=== PATIENT | male | born 1945 | race Two or more races ===

== ENCOUNTER 2021-04-12 08:32 | Inpatient (IN) | payer OTHER ==
[~2021-04-12] VITALS: Ht 177.8 cm; Wt 104.4 kg
[2021-04-12] MEDS ORDERED: cefTRIAXone 1GM/50ML D5W 50 ML IV ONE (09:30)
[2021-04-12 09:34] LABS: Basophils # (auto) 0.1 10 ^3/uL (0-0.2); Basophils % (auto) 1.3 % (0.0-2.0); Eosinophils # (auto) 0.1 10 ^3/uL (0-0.8); Eosinophils % (auto) 1.5 % (0.0-7.0); Hematocrit 39.7 % (41.0-53.0); Hemoglobin 13.4 g/dL (13.5-17.5); Lymphocytes # (auto) 1.8 10 ^3/uL (0.4-5.4); Lymphocytes % (auto) 20.6 % (10.0-50.0); Mean Corpuscular Hemoglobin 33.3 pg (28.0-32.0); Mean Corpuscular Hgb Conc. 33.9 g/dL (32.0-36.0); Mean Corpuscular Volume 98.3 fL (80.0-100.0); Monocytes # (auto) 0.7 10 ^3/uL (0-1.3); Monocytes % (auto) 8.8 % (0.0-12.0); Neutrophils # (auto) 5.8 10 ^3/uL (1.6-8.6); Neutrophils % (auto) 67.8 % (37.0-80.0); Platelet Count (auto) 239 10^3/uL (140-450); Red Blood Cells 4.04 10^6/uL (4.5-5.90); Red Cell Distribution Width 13.7 % (11.8-14.3); White Blood Cell 8.5 10^3/uL (4.4-10.8)
[2021-04-12 09:45] LABS: Albumin 3.1 g/dL (3.4-5.0); Anion Gap 6 (5-15); Blood Urea Nitrogen 15 mg/dL (7-18); Calcium 9.2 mg/dL (8.5-10.1); Carbon Dioxide 24 mmol/L (21-32); Chloride 107 mmol/L (98-107); GFR African American 130 mL/min; GFR Non-African American 108 mL/min; Glucose 111 mg/dL (74-106); Potassium 3.9 mmol/L (3.5-5.1); Sodium 137 mmol/L (136-145)
[2021-04-12 09:50] LABS: INR 1.05 (0.9-1.15); Partial Thromboplastin Time 27.2 sec (23.0-31.2)
[2021-04-12 09:53] LABS: Alanine Aminotransferase 16 U/L (16-61); Alkaline Phosphatase 82 U/L (45-117); Aspartate Aminotransferase 15 U/L (15-37); Bilirubin, Total 0.7 mg/dL (0.2-1.0); Total Protein 6.7 g/dL (6.4-8.2)
[2021-04-12] MEDS ORDERED: CLINDAMYCIN 600MG IV 50 ML IV ONE (10:30)
[2021-04-12] MEDS ORDERED: ACETAMINOPHEN 325 MG TAB PO PRN (11:15)
[2021-04-12 11:59] LABS: Cholesterol 171 mg/dL (< 200); Triglycerides 72 mg/dL (< 150)
[2021-04-12 12:02] LABS: HDL Cholesterol 51 mg/dL (40-59); LDL Cholesterol 109 mg/dL (< 100)
[2021-04-12 15:01] LABS: Urine Bacteria NONE SEEN /hpf (None Seen); Urine Blood Negative /uL (Negative); Urine Specific Gravity 1.013 (1.001-1.035); Urine WBC <1 /hpf (0 - 3)
[2021-04-12] MEDS ORDERED: LORazepam 2MG/ML-1ML VIAL IV PRN (16:30)
[2021-04-12 18:00] VITALS: BP 120/69
[2021-04-12] MEDS: CLINDAMYCIN 600MG IV 50 ML IV SCH (18:18)
[2021-04-12] MEDS ORDERED: DOCU100T15 PO (18:59)
[2021-04-12] MEDS ORDERED: OXYC325T14 PO (18:59)
[2021-04-12] MEDS ORDERED: NAP500T PO (18:59)
[2021-04-12] MEDS ORDERED: MORP30TA PO (18:59)
[2021-04-12 20:00] VITALS: BP 124/62
[2021-04-12] MEDS: HYDROcodone-ACET 5/325MG TAB PO PRN (20:34)
[2021-04-12 22:00] VITALS: BP 124/62
[2021-04-13] MEDS: MORPHINE SULF INJ 2 MG/ML SYRINGE 1ML IV PRN ×2 (00:40→06:31)
[2021-04-13] MEDS: CLINDAMYCIN 600MG IV 50 ML IV SCH ×3 (02:19→17:26)
[2021-04-13] MEDS: HYDROcodone-ACET 5/325MG TAB PO PRN ×2 (02:57→13:41)
[2021-04-13 05:08] VITALS: BP 135/66
[2021-04-13 06:35] LABS: Eosinophils # (auto) 0.1 10 ^3/uL (0-0.8); Hemoglobin 13.4 g/dL (13.5-17.5); Monocytes # (auto) 0.8 10 ^3/uL (0-1.3); Neutrophils # (auto) 5.2 10 ^3/uL (1.6-8.6)
[2021-04-13 06:37] LABS: Basophils # (auto) 0 10 ^3/uL (0-0.2); Basophils % (auto) 0.5 % (0.0-2.0); Eosinophils % (auto) 1.5 % (0.0-7.0); Hematocrit 37.6 % (41.0-53.0); Lymphocytes # (auto) 1.7 10 ^3/uL (0.4-5.4); Lymphocytes % (auto) 21.4 % (10.0-50.0); Mean Corpuscular Hemoglobin 34.8 pg (28.0-32.0); Mean Corpuscular Hgb Conc. 35.8 g/dL (32.0-36.0); Mean Corpuscular Volume 97.3 fL (80.0-100.0); Monocytes % (auto) 10.1 % (0.0-12.0); Neutrophils % (auto) 66.5 % (37.0-80.0); Nucleated Red Blood Cells % 0.2 %; Platelet Count (auto) 231 10^3/uL (140-450); Red Blood Cells 3.86 10^6/uL (4.5-5.90); Red Cell Distribution Width 13.4 % (11.8-14.3); White Blood Cell 7.8 10^3/uL (4.4-10.8)
[2021-04-13 06:55] LABS: Potassium 3.8 mmol/L (3.5-5.1)
[2021-04-13 07:01] LABS: BUN/Creatinine Ratio 18.1; Calcium 9.2 mg/dL (8.5-10.1)
[2021-04-13] MEDS: ONDANSETRON HCL 4 MG/2 ML VIAL IV PRN ×2 (07:35→15:28)
[2021-04-13 09:00] VITALS: BP 171/89
[2021-04-13] MEDS: HYDROmorphone HCL 2 MG/ML VL IV PRN ×2 (09:03→15:28)
[2021-04-13] MEDS: cefTRIAXone 1GM/50ML D5W 50 ML IV SCH (09:33)
[2021-04-13] MEDS ORDERED: PANTOPRAZOLE 40 MG TAB PO SCH (10:00)
[2021-04-13] MEDS: FLORASTOR (S. BOULARDII) 250 MG CAP PO SCH (11:16)
[2021-04-13 12:50] VITALS: BP 143/78
[2021-04-13 17:00] VITALS: BP 128/66
[2021-04-13] MEDS ORDERED: hydrOXYzine 25 MG TAB or CAP PO PRN (19:00)
[2021-04-13] MEDS: QUEtiapine FUMARATE 25 MG TAB PO SCH (21:54)
[2021-04-13] MEDS: MORPHINE SULF 30 mg ER tab PO SCH (21:54)
[2021-04-13 22:00] VITALS: BP 131/66
[2021-04-14] MEDS: HYDROmorphone HCL 2 MG/ML VL IV PRN ×2 (00:11→09:42)
[2021-04-14] MEDS: CLINDAMYCIN 600MG IV 50 ML IV SCH ×3 (01:42→18:02)
[2021-04-14 03:02] LABS: Alcohol, Urine < 3.0 mg/dL (0-10); Amphetamine Screen, Urine NEGATIVE (NEGATIVE); Barbiturate Scree,Urine NEGATIVE (NEGATIVE); Benzodiazephine Screen, Urine NEGATIVE (NEGATIVE); Cannabinoid Screen, Urine NEGATIVE (NEGATIVE); Cocaine Screen, Urine NEGATIVE (NEGATIVE); Opiate Scree,Urine POSITIVE (NEGATIVE); Phencyclidine Screen, Urine NEGATIVE (NEGATIVE)
[2021-04-14] MEDS: HYDROcodone-ACET 5/325MG TAB PO PRN (03:12)
[2021-04-14 04:50] VITALS: BP 124/70
[2021-04-14] MEDS: MORPHINE SULF 30 mg ER tab PO SCH ×3 (06:14→22:14)
[2021-04-14] MEDS: QUEtiapine FUMARATE 25 MG TAB PO SCH ×4 (08:46→22:14)
[2021-04-14] MEDS: cefTRIAXone 1GM/50ML D5W 50 ML IV SCH (08:47)
[2021-04-14 09:00] VITALS: BP 134/65
[2021-04-14] MEDS: FLORASTOR (S. BOULARDII) 250 MG CAP PO SCH (09:41)
[2021-04-14] MEDS: ONDANSETRON HCL 4 MG/2 ML VIAL IV PRN (09:42)
[2021-04-14 12:30] VITALS: BP 122/73
[2021-04-14 13:00] VITALS: BP 89/46
[2021-04-14 16:41] VITALS: BP 95/68
[2021-04-14 22:00] VITALS: BP 113/63
[2021-04-15] VITALS (8 sets, daily range): BP systolic 86–124; BP diastolic 50–63
[2021-04-15] MEDS: CLINDAMYCIN 600MG IV 50 ML IV SCH ×2 (02:03→09:39)
[2021-04-15] MEDS: HYDROmorphone HCL 2 MG/ML VL IV PRN (02:04)
[2021-04-15] MEDS: MORPHINE SULF 30 mg ER tab PO SCH ×3 (06:00→22:00)
[2021-04-15] MEDS: QUEtiapine FUMARATE 25 MG TAB PO SCH ×3 (06:50→22:00)
[2021-04-15] MEDS: cefTRIAXone 1GM/50ML D5W 50 ML IV SCH (09:38)
[2021-04-15] MEDS: HYDROcodone-ACET 5/325MG TAB PO PRN (09:39)
[2021-04-15] MEDS: FLORASTOR (S. BOULARDII) 250 MG CAP PO SCH (09:39)
[2021-04-15] MEDS ORDERED: LACTULOSE 20Gm/30ML SOLN PO ONE ×2 (12:15→12:30)
[2021-04-15] MEDS ORDERED: QUET25TA46 PO ×2 (12:21)
[2021-04-15] MEDS ORDERED: QUET50TA PO (12:21)
[2021-04-15] MEDS ORDERED: DOXY-112 PO (12:21)
[2021-04-15] MEDS ORDERED: DIVA500T12 PO (12:21)
[2021-04-15] MEDS ORDERED: LACTULOSE 20Gm/30ML SOLN PO PRN (12:30)
[2021-04-15] MEDS: DOXYCYCLINE 100 MG TAB/CAP PO SCH (22:00)
[2021-04-16] MEDS: HYDROcodone-ACET 5/325MG TAB PO PRN (02:14)
[2021-04-16 05:00] VITALS: BP 111/101
[2021-04-16] MEDS: MORPHINE SULF 30 mg ER tab PO SCH (06:02)
[2021-04-16] MEDS: QUEtiapine FUMARATE 25 MG TAB PO SCH (06:51)
[2021-04-16 09:00] VITALS: BP 123/52
[2021-04-16] MEDS: cefTRIAXone 1GM/50ML D5W 50 ML IV SCH (09:16)
[2021-04-16] MEDS: FLORASTOR (S. BOULARDII) 250 MG CAP PO SCH (09:17)
[2021-04-16] MEDS: DOXYCYCLINE 100 MG TAB/CAP PO SCH (09:17)
[2021-04-16 11:02] VITALS: BP 123/52
== END 2021-04-16 12:50 | disposition home or self-care (01) | DRG 603 ==
LOC: ER 08:32 → EDBD 08:32 → TELE 11:09 → TELE-EAST 18:00
PROVIDERS: ADMIT Nurse Practitioner Acute Care; ATTEND Internal Medicine
DX: L03.116 Cellulitis of left lower limb (principal); B35.3 Tinea pedis; F31.9 Bipolar disorder, unspecified; G89.4 Chronic pain syndrome; E66.9 Obesity, unspecified; I10 Essential (primary) hypertension; I35.0 Nonrheumatic aortic (valve) stenosis; F17.210 Nicotine dependence, cigarettes, uncomplicated; I73.9 Peripheral vascular disease, unspecified; F11.10 Opioid abuse, uncomplicated; M54.5 Low back pain; Z20.822 Contact with and (suspected) exposure to COVID-19; Z68.32 Body mass index [BMI] 32.0-32.9, adult; Z91.5 Personal history of self-harm
CPT/HCPCS: 36415; 71045; 80048; 80053; 80061; 80307; 81001; 83605; 83880; 84484; 85025; 85610; 85730; 87040; 87426; 93005; 93306; 93925; 93970; 96365; 96366; 96367; G0378; J0696; J2405; J3490

== ENCOUNTER → 2022-11-29 | Emergency (ER) | payer OTHER ==
[~2022-11-29] VITALS: Ht 177.8 cm; Wt 92.3 kg
[~2022-11-29] MED LIST: CEFD300C2 PO; CYCL-837 PO; DICL50TA2 PO; DIVA500T12 PO; DOCU100T15 PO; DOXY-112 PO; MORP30TA PO; OXYC325T14 PO; QUET1TAB11 PO; QUET50TA PO
[2022-11-29 10:15] VITALS: BP 133/89
[2022-11-29 11:22] LABS: Urine Bacteria NONE SEEN /hpf (None Seen); Urine Blood Negative /uL (Negative); Urine Hyaline Cast FEW /lpf (0 - 2); Urine Mucus FEW (None Seen); Urine Specific Gravity 1.028 (1.001-1.035); Urine WBC 1 /hpf (0 - 3)
[2022-11-29 11:22] LABS: Basophils # (auto) 0.1 10 ^3/uL (0-0.2); Basophils % (auto) 0.7 % (0.0-2.0); Eosinophils # (auto) 0.2 10 ^3/uL (0-0.8); Eosinophils % (auto) 1.9 % (0.0-7.0); Hematocrit 46.8 % (41.0-53.0); Hemoglobin 15.1 g/dL (13.5-17.5); Lymphocytes # (auto) 2.3 10 ^3/uL (0.4-5.4); Lymphocytes % (auto) 28.3 % (10.0-50.0); Mean Corpuscular Hemoglobin 32.6 pg (28.0-32.0); Mean Corpuscular Hgb Conc. 32.2 g/dL (32.0-36.0); Mean Corpuscular Volume 101.3 fL (80.0-100.0); Monocytes # (auto) 0.7 10 ^3/uL (0-1.3); Neutrophils % (auto) 61.1 % (37.0-80.0); Nucleated Red Blood Cells % 0.1 %; Red Blood Cells 4.62 10^6/uL (4.5-5.90); Red Cell Distribution Width 14.6 % (11.8-14.3); White Blood Cell 8.2 10^3/uL (4.4-10.8)
[2022-11-29 11:44] LABS: Albumin 3.6 g/dL (3.4-5.0); BUN/Creatinine Ratio 18.8; Calcium 9.6 mg/dL (8.5-10.1); Potassium 4.8 mmol/L (3.5-5.1)
[2022-11-29 11:59] LABS: Bilirubin, Total 0.8 mg/dL (0.2-1.0); Total Protein 7.1 g/dL (6.4-8.2)
== END | disposition home or self-care (01) ==
LOC: ER 10:08
DX: M47.27 Other spondylosis with radiculopathy, lumbosacral region (principal); I87.2 Venous insufficiency (chronic) (peripheral); K62.89 Other specified diseases of anus and rectum; B35.1 Tinea unguium; Z98.890 Other specified postprocedural states
CPT/HCPCS: 36415; 71045; 80053; 81001; 82962; 84484; 85025; 93005

== ENCOUNTER 2023-07-08 10:30 | Emergency (ER) | payer OTHER ==
[~2023-07-08] VITALS: Ht 177.8 cm; Wt 90.9 kg
[~2023-07-08 10:30] MED LIST changes: -DOXY-112 PO; +DOXY-267 PO
[2023-07-08 12:15] LABS: Basophils # (auto) 0.1 10 ^3/uL (0-0.2); Basophils % (auto) 0.7 % (0.0-2.0); Eosinophils # (auto) 0.2 10 ^3/uL (0-0.8); Hematocrit 41.2 % (41.0-53.0); Hemoglobin 14.1 g/dL (13.5-17.5); Lymphocytes # (auto) 2.1 10 ^3/uL (0.4-5.4); Lymphocytes % (auto) 25.9 % (10.0-50.0); Mean Corpuscular Hemoglobin 33.9 pg (28.0-32.0); Mean Corpuscular Hgb Conc. 34.2 g/dL (32.0-36.0); Mean Corpuscular Volume 99.1 fL (80.0-100.0); Monocytes # (auto) 0.7 10 ^3/uL (0-1.3); Monocytes % (auto) 8.9 % (0.0-12.0); Neutrophils # (auto) 5.1 10 ^3/uL (1.6-8.6); Neutrophils % (auto) 62.5 % (37.0-80.0); Red Blood Cells 4.16 10^6/uL (4.5-5.90); Red Cell Distribution Width 14.5 % (11.8-14.3); White Blood Cell 8.1 10^3/uL (4.4-10.8)
[2023-07-08 12:33] LABS: Alanine Aminotransferase 14 U/L (7-40); Albumin 4.4 g/dL (3.2-4.8); Alkaline Phosphatase 79 U/L (46-116); Aspartate Aminotransferase 15 U/L (13-40); BUN/Creatinine Ratio 8.2 (10.0-20.0); Blood Urea Nitrogen 8 mg/dL (9-23); Calcium 9.7 mg/dL (8.5-10.1); Chloride 106 mmol/L (98-107); Glucose 99 mg/dL (74-106); Lipase 39 U/L (12-53); Potassium 4.5 mmol/L (3.5-5.1); Sodium 139 mmol/L (136-145)
[2023-07-08 12:34] LABS: Bilirubin, Total 0.7 mg/dL (0.2-1.0); Total Protein 7.2 g/dL (5.7-8.2)
[2023-07-08 12:35] LABS: INR 1.05 (0.9-1.15); Partial Thromboplastin Time 29.6 SEC (24.5-34.5)
[2023-07-08 16:10] VITALS: BP 143/61; TEMP 98.2
[2023-07-08 16:11] VITALS: PULSE 86; RESP 18; O2SAT 97
== END 2023-07-08 16:12 | disposition home or self-care (01) ==
LOC: EDBD 10:30 → ER 10:30
DX: R10.32 Left lower quadrant pain (principal); F17.210 Nicotine dependence, cigarettes, uncomplicated; Z79.2 Long term (current) use of antibiotics; Z79.899 Other long term (current) drug therapy
CPT/HCPCS: 36415; 74176; 80053; 83690; 85025; 85610; 85730

== ENCOUNTER 2024-11-18 07:13 | Inpatient (IN) | payer OTHER ==
[2024-11-18] VITALS (7 sets, daily range): BP systolic 82–110; BP diastolic 40–51; PULSE 71–84; RESP 13–17; TEMP 97.6–98.8; O2SAT 93–100
[~2024-11-18] VITALS: Ht 180.3 cm; Wt 85.2 kg
--- NOTE | 2024-11-18 07:23 | ECG ---
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
--- NOTE | 2024-11-18 07:42 | ED.PDOC ---
History of Present Illness HPI Comments 79 year old male brought in by EMS presents to the ED with a chief complaint of generalized weakness onset 2 weeks. Per EMS, patient woke up today, walked to the bathroom and when he went back to bed he was experiencing shortness of breath as well as dizziness. Upon EMS arrival patient's O2 sat was 88% on RA placed on 3L improved to 99%, BP 90s systolic. Patient has not taken his psych medication since yesterday. PMHx bipolar disorder and depression. Denies chest pain, headache, abdominal pain, nausea, vomiting, diarrhea, constipation,dysuria. No other symptoms or modifying factors present at this time. Chief Complaint: General Weakness Time Seen by MD: 07:23 Primary Care Provider: MADISYN Reviewed Notes: Medications, Allergies Allergies: Coded Allergies: Aspirin (Verified Allergy, Unknown, 11/18/24) Home Meds Active Scripts Cefdinir (Cefdinir) 300 Mg Cap, 1 CAP PO BID for 10 Days, #20 CAP Prov:CORINA GARCIA MD 11/29/22 Cyclobenzaprine Hcl (Cyclobenzaprine Hcl) 5 Mg Tab, 1 TAB PO TID for 10 Days, #30 TAB Prov:CORINA GARCIA MD 11/29/22 Diclofenac Potassium (Diclofenac Potassium) 50 Mg Tab, 1 TAB PO TIDP for 10 Days, #30 TAB Prov:CORINA GARCIA MD 11/29/22 Doxycycline Monohydrate (Doxycycline Monohydrate) 100 Mg Cap, 1 CAP PO BID, #14 CAP Prov:ALEC BAEZ MD 04/15/21 Divalproex Sodium (Divalproex Sodium Er) 500 Mg Tab, 2 TAB PO HS for 30 Days, #60 TAB Prov:ALEC BAEZ MD 04/15/21 Quetiapine Fumerate (Seroquel) 50 Mg Tab, 1 TAB PO HS, #30 TAB 0 Refills Prov:ALEC BAEZ MD 04/15/21 Quetiapine Fumerate (QUETIAPINE FUMARATE) 25 Mg Tab, 12.5 MG PO QAM for 30 Days, #15 TAB Prov:ALEC BAEZ MD 04/15/21 Quetiapine Fumerate (QUETIAPINE FUMARATE) 25 Mg Tab, 12.5 MG PO QPM for 30 Days, #15 TAB Prov:ALEC BAEZ MD 04/15/21 Reported Medications Docusate Sodium (Docusate Sodium) 100 Mg Tab, 100 MG PO BIDP PRN for FOR CONSTIPATION for 30 Days, MG 04/12/21 Oxycodone W/ Acetaminophen (Apap/Oxycodone) 1 Tab Tab, 1 TAB PO TIDP PRN for Pain, #90 TAB 04/12/21 Morphine Sulfate (Morphine Sulfate) 30 Mg Tab, 1 TAB PO TIDP for Pain, #90 TAB 04/12/21 Information Source: Patient, Emergency Med Personnel Mode of Arrival: EMS Severity: Moderate Timing: Weeks Duration: Since onset Prehospital treatment: Oxygen (3L) Past Medical History PAST MEDICAL HISTORY: Arthritis, Denies Surgical History: Unknown Family History Family History: Unknown Social History Smoker: Cigarettes Alcohol: Denies ETOH Use Drugs: Denies Drug Use Lives In: Home Constitutional: reports: weakness; denies: chills, diaphoresis, fatigue, fever, malaise, sweats, others EENTM: denies: blurred vision, double vision, ear bleeding, ear discharge, ear drainage, ear pain, ear ringing, eye pain, eye redness, hearing loss, mouth pain, mouth swelling, nasal discharge, nose bleeding, nose congestion, nose pain, photophobia, tearing, throat pain, throat swelling, voice changes, others Respiratory: reports: shortness of breath; denies: cough, hemoptysis, orthopnea, SOB at rest, SOB with excertion, stridor, wheezing, others Cardiovascular: denies: chest pain, dizzy spells, diaphoresis, Dyspnea on exertion, edema, irregular heart beat, left arm pain, lightheadedness, palpitations, PND, syncope, others Gastrointestinal: denies: abdomen distended, abdominal pain, blood streaked bowels, constipated, diarrhea, dysphagia, difficulty swallowing, hematemesis, melena, nausea, poor appetite, poor fluid intake, rectal bleeding, rectal pain, vomiting, others Genitourinary: denies: burning, dysuria, flank pain, frequency, hematuria, incontinence, penile discharge, penile sore, pain, testicle pain, testicle swelling, urgency, others Neurological: reports: dizziness; denies: fainting, headache, left sided numbness, left sided weakness, numbness, paresthesia, pre-existing deficit, right sided numbness, right sided weakness, seizure, speech problems, tingling, tremors, weakness, others Musculoskeletal: denies: back pain, gout, joint pain, joint swelling, muscle pain, muscle stiffness, neck pain, others Integumetry: denies: bruises, change in color, change in hair/nails, dryness, laceration, lesions, lumps, rash, wounds, others Allergic/Immunocompromised: denies: Difficulty Healing, Frequent Infections, Hives, Itching, others Hematologic/Lymphatic: denies: anemia, blood clots, easy bleeding, easy bruising, swollen glands, others Endocrine: denies: excessive hunger, excessive sweating, excessive thirst, excessive urination, flushing, intolerance to cold, intolerance to heat, unexplained weight gain, unexplained weight loss, others Psychiatric: denies: anxiety, bipolar disorder, depression, hopeless, panic disorder, schizophrenia, sleepless, suicidal, others All Other Systems: Reviewed and Negative Physical Exam General Appearance: Moderate Distress HEENT: Normal ENT Inspection, Pharynx Normal, TMs Normal Neck: Full Range of Motion, Non-Tender, Normal, Normal Inspection Respiratory: Chest Non-Tender, Lungs Clear, No Accessory Muscle Use, No Respiratory Distress, Normal Breath Sounds Cardiovascular: No Edema, No JVD, No Murmur, No Gallop, Normal Peripheral Pulses, Regular Rate/Rhythm Breast Exam: Deferred Gastrointestinal: No Organomegaly, Non Tender, No Pulsatile Mass, Normal Bowel Sounds, Soft Genitalia: Deferred Pelvic: Deferred Rectal: Deferred Extremities: No pedal edema Musculoskeletal : Apperance: Normal Neurologic: Alert Cerebellar Function: NOT DONE Reflexes: NOT DONE Skin: Pallor Peripheral Pulses: 3+ Radial (R), 3+ Radial (L) Lymphatic: No Adenopathy Was a procedure done? Was a procedure done?: No Differential Dx Considerations may include: Anemia Electrolyte imbalance X-Ray, Labs, Meds, VS Vital Signs Date Time Temp Pulse Resp B/P (MAP) Pulse Ox O2 Delivery O2 Flow Rate FiO2 11/18/24 07:17 98.0 87 16 106/68 (81) 99 11/18/24 07:17 89 Lab Test 11/18/24 07:50 Range/Units White Blood Count 5.3 4.4-10.8 10^3/uL Red Blood Count 2.68 L 4.5-5.90 10^6/uL Hemoglobin 5.3 *L 13.5-17.5 g/dL Hematocrit 18.2 L 41.0-53.0 % Mean Corpuscular Volume 67.8 L 80.0-100.0 fL Mean Corpuscular Hemoglobin 19.8 L 28.0-32.0 pg Mean Corpuscular Hemoglobin Concent 29.1 L 32.0-36.0 g/dL Red Cell Distribution Width 21.0 H 11.8-14.3 % Platelet Count 251 140-450 10^3/uL Mean Platelet Volume 8.6 6.9-10.8 fL Neutrophils (%) (Auto) 37.0-80.0 % Lymphocytes (%) (Auto) 10.0-50.0 % Monocytes (%) (Auto) 0.0-12.0 % Basophils (%) (Auto) 0.0-2.0 % Neutrophils # (Auto) 1.6-8.6 10 ^3/uL Lymphocytes # (Auto) 0.4-5.4 10 ^3/uL Monocytes # (Auto) 0-1.3 10 ^3/uL Differential Total Cells Counted 100.0 100 Neutrophils % (Manual) 73 37.0-80.0 Band Neutrophils % (Manual) 0 Lymphocytes % (Manual) 22 10.0-50.0 Monocytes % (Manual) 2 0-12 Eosinophils % (Manual) 3 0-7 Basophils % (Manual) 0 0.0-2.0 Metamyelocytes % (manual) 0 Myelocytes % (Manual) 0 Promyelocytes % (Manual) 0 Blast Cells % (Manual) 0 Reactive Lymphocytes 0 Platelet Estimate Adequate Hypochromasia (manual) Marked Anisocytosis (manual) Marked Microcytosis Marked Sodium Level 142 136-145 mmol/L Potassium Level 4.3 3.5-5.1 mmol/L Chloride Level 109 H 98-107 mmol/L Carbon Dioxide Level 24 20-31 mmol/L Anion Gap 9 5-15 Blood Urea Nitrogen 18 9-23 mg/dL Creatinine 1.03 0.700-1.30 mg/dL Glomerular Filtration Rate Calc 73 >90 mL/min BUN/Creatinine Ratio 17.5 10.0-20.0 Serum Glucose 124 H 74-106 mg/dL Calcium Level 9.7 8.7-10.4 mg/dL Troponin I High Sensitivity 28 </=54 ng/L Patient alert. Frequent falls. He is pale. Denies any bleeding. Hemoglobin is low. Blood transfusion. Cardiac marker within normal limits. WBC within normal limits. Reviewed his history. Explained to the patient. Continue cardiac monitoring. GI consultation. Colonoscopy. EKG reviewed does not show any acute changes. Chest x-ray reviewed does show pneumonia. Was given Rocephin. Was given azithromycin. Time of 1ST Reevaluation: 10:42 Reevaluation 1ST: Unchanged Patient Education/Counseling: Diagnosis, Treatment, Prognosis Family Education/Counseling: No Family Present Additional Information I reviewed the following notes from patient's past medical encounters: The following tests were ordered, and results were reviewed by me: EKG, TROP, CBC, XY CHEST, YA, BMP, MANUAL DIFF, TYPE AND SCREEN Additional Information was gathered from interviewing the following independent historians: EMS I reviewed and agreed with the following test results read by other providers: XY CHEST I discussed treatment and results with medical personnel and: patient Departure 1 Departure Time of Disposition: 10:43 Impression: Primary Impression: Severe anemia Disposition: ADMITTED INPATIENT Admit to: Med Surg Condition: Guarded Critical Care Note Critical Care Time?: Yes (90 min-critical care time only) Stability Stability form required: No Heart Score Heart Score: Heart Score Response (Comments) Value History Slightly Suspicious 0 EKG Normal 0 Age >65 2 Risk Factors >3 or Hx ASHD 2 Troponin Normal limit 0 Total 4 I personally scribed for AVANI GRAY MD ([email or web address]) on 11/18/24 at 07:42. Electronically submitted by Ansley Tyson ([email or web address]). I personally scribed for AVANI GRAY MD ([email or web address]) on 11/18/24 at 09:07. Electronically submitted by Ansley Tyson ([email or web address]). AVANI GRAY MD Nov 18, 2024 07:42
[2024-11-18 08:11] LABS: Hematocrit 18.2 % (41.0-53.0); Mean Corpuscular Hemoglobin 19.8 pg (28.0-32.0); Mean Corpuscular Hgb Conc. 29.1 g/dL (32.0-36.0); Mean Corpuscular Volume 67.8 fL (80.0-100.0); Platelet Count (auto) 251 10^3/uL (140-450); Red Blood Cells 2.68 10^6/uL (4.5-5.90); White Blood Cell 5.3 10^3/uL (4.4-10.8)
[2024-11-18 08:18] LABS: Potassium 4.3 mmol/L (3.5-5.1); Sodium 142 mmol/L (136-145)
[2024-11-18 08:19] LABS: Anion Gap 9 (5-15); Calcium 9.7 mg/dL (8.7-10.4); Carbon Dioxide 24 mmol/L (20-31)
[2024-11-18 08:24] LABS: BUN/Creatinine Ratio 17.5 (10.0-20.0); Blood Urea Nitrogen 18 mg/dL (9-23)
[2024-11-18 08:27] LABS: Hemoglobin 5.3 g/dL (13.5-17.5)
[2024-11-18 08:29] LABS: Band Neutrophils % (manual) 0; Basophils % (manual) 0 (0.0-2.0); Blast Cells 0; Chloride 109 mmol/L (98-107); Glucose 124 mg/dL (74-106); Metamyelocytes % 0; Myelocytes % 0; Promyelocytes % 0; Reactive Lymphocytes 0
--- NOTE | 2024-11-18 09:29 | DVH ---
CHEST RADIOGRAPH Indication: sob Technique: Single frontal view of the chest was obtained Comparison: CHEST PORTABLE on DOS: 11/29/22 FINDINGS: Lines and Tubes: None Lungs: Bilateral interstitial prominence and bibasilar opacities. Pleura: No effusion. No pneumothorax. Cardiomediastinal contours: Unremarkable Bones: No acute osseous abnormality. IMPRESSION: Interstitial pulmonary edema. Bibasilar opacities which may reflect atelectasis or superimposed pneu monia.
[2024-11-18 10:39] LABS: Anisocytosis Marked; Eosinophils % (manual) 3 (0-7); Hypochromia Marked; Lymphocytes % (manual) 22 (10.0-50.0); Monocytes % (manual) 2 (0-12); Platelet Estimate Adequate
[2024-11-18] MEDS: cefTRIAXone 1GM/50ML D5W 50 ML IV ONE (12:12)
[2024-11-18] MEDS: AZITHROMYCIN 500MG/ 250ML 250 ML IV ONE (12:13)
--- NOTE | 2024-11-18 12:32 | DVHHP2 ---
History of Present Illness Reason for Visit: Weakness History of Present Illness Maynor Renae is an 79-year-old male with past medical history of bipolar disorder, depression, arthritis, spinal fusion, and colonoscopy he has presents to the ED today for weakness, shortness of breath, and dizziness times 5-6 weeks. Patient reports that he has been progressively getting weaker and weaker over the last 5-6 weeks. Patient states that he is compliant with his medications. Patient also denies bleeding, chest pain, abdominal pain, nausea, vomiting and headaches. Patient did also denies any recent trauma or injury or falls. Psych: Bipolar, Depression Past Medical History Arthritis Past Surgical History: Other (Spinal fusion And Colonoscopy) Family History: Cancer, Other (For then to start cancer, mom Alzheimer's, and dad heart disease) Smoke: <1 pack per day ALCOHOL: none Lives: Alone Domestic Violence: Neg Review of Systems Constitutional: Yes: Weakness, Other (Dizziness); No: Fever, Chills, Sweats, Malaise Eyes: No: Pain, Vision change, Conjunctivae inflammation, Eyelid inflammation, Other, Redness ENT: No: Ear pain, Ear discharge, Nose pain, Nose discharge, Nose congestion, Mouth pain, Mouth swelling, Throat pain, Throat swelling, Other Respiratory: Shortness of breath; No: Cough, Dry, SOB with excertion, Wheezing, Hemoptysis, Pleuritic Pain, Sputum, Wheezing, Other Cardiovascular: No: Chest Pain, Palpitations, Orthopnea, Paroxysmal Noc. Dyspnea, Edema, Lt Headedness, Other Gastrointestinal: No: Nausea, Vomiting, Abdominal Pain, Diarrhea, Constipation, Melena, Hematochezia, Other Genitourinary: No Dysuria, No Frequency, No Incontinence, No Hematuria, No Retention, No Other Musculoskeletal: No: other, neck pain, shoulder pain, arm pain, back pain, hand pain, leg pain, foot pain Skin: No: Rash, Lesions, Jaundice, Bruising, Other Neurological: No: Weakness, Numbness, Incoordination, Change in speech, Confusion, Seizures, Other Allergies: Coded Allergies: Aspirin (Verified Allergy, Unknown, 11/18/24) Exam Vital Signs Vital Signs Date Time Temp Pulse Resp B/P (MAP) Pulse Ox O2 Delivery O2 Flow Rate FiO2 11/18/24 07:17 98.0 87 16 106/68 (81) 99 General Appearance: Alert, Oriented X3, Cooperative, No acute distress HEENT: Atraumatic, PERRLA, EOMI, Mucous membr. moist/pink Respiratory: Clear to auscultation, Normal air movement Cardiovascular: Regular rate, Normal S1, Normal S2, No murmurs Abdominal: Normal bowel sounds, Soft, No tenderness, No hepatospenomegaly, No masses Extremities: No clubbing, No cyanosis, No edema, Normal pulses, No tenderness/swelling Skin: No rashes, No breakdown, No significant lesion Neuro: Normal gait, Normal speech, Strength at 5/5 X4 ext, Normal tone, Sensation intact Psych/Mental Status: Mental status NL, Mood NL Labs/Xrays Labs Test 11/18/24 07:50 Range/Units White Blood Count 5.3 4.4-10.8 10^3/uL Red Blood Count 2.68 L 4.5-5.90 10^6/uL Hemoglobin 5.3 *L 13.5-17.5 g/dL Hematocrit 18.2 L 41.0-53.0 % Mean Corpuscular Volume 67.8 L 80.0-100.0 fL Mean Corpuscular Hemoglobin 19.8 L 28.0-32.0 pg Mean Corpuscular Hemoglobin Concent 29.1 L 32.0-36.0 g/dL Red Cell Distribution Width 21.0 H 11.8-14.3 % Platelet Count 251 140-450 10^3/uL Mean Platelet Volume 8.6 6.9-10.8 fL Neutrophils (%) (Auto) 37.0-80.0 % Lymphocytes (%) (Auto) 10.0-50.0 % Monocytes (%) (Auto) 0.0-12.0 % Basophils (%) (Auto) 0.0-2.0 % Neutrophils # (Auto) 1.6-8.6 10 ^3/uL Lymphocytes # (Auto) 0.4-5.4 10 ^3/uL Monocytes # (Auto) 0-1.3 10 ^3/uL Differential Total Cells Counted 100.0 100 Neutrophils % (Manual) 73 37.0-80.0 Band Neutrophils % (Manual) 0 Lymphocytes % (Manual) 22 10.0-50.0 Monocytes % (Manual) 2 0-12 Eosinophils % (Manual) 3 0-7 Basophils % (Manual) 0 0.0-2.0 Metamyelocytes % (manual) 0 Myelocytes % (Manual) 0 Promyelocytes % (Manual) 0 Blast Cells % (Manual) 0 Reactive Lymphocytes 0 Platelet Estimate Adequate Hypochromasia (manual) Marked Anisocytosis (manual) Marked Microcytosis Marked Sodium Level 142 136-145 mmol/L Potassium Level 4.3 3.5-5.1 mmol/L Chloride Level 109 H 98-107 mmol/L Carbon Dioxide Level 24 20-31 mmol/L Anion Gap 9 5-15 Blood Urea Nitrogen 18 9-23 mg/dL Creatinine 1.03 0.700-1.30 mg/dL Glomerular Filtration Rate Calc 73 >90 mL/min BUN/Creatinine Ratio 17.5 10.0-20.0 Serum Glucose 124 H 74-106 mg/dL Calcium Level 9.7 8.7-10.4 mg/dL Troponin I High Sensitivity 28 </=54 ng/L CHEST RADIOGRAPH Indication: sob Technique: Single frontal view of the chest was obtained Comparison: CHEST PORTABLE on DOS: 11/29/22 FINDINGS: Lines and Tubes: None Lungs: Bilateral interstitial prominence and bibasilar opacities. Pleura: No effusion. No pneumothorax. Cardiomediastinal contours: Unremarkable Bones: No acute osseous abnormality. IMPRESSION: Interstitial pulmonary edema. Bibasilar opacities which may reflect atelectasis or superimposed pneumonia. Assessment/Plan Assessment/Plan Assessment/Plan: Severe Anemia suspecting iron-deficiency anemia PNA IV antibiotics ceftriaxone and azithromycin Type and screen UA Chest x-ray noted Troponin negative EKG Transfuse PRBCs for hemoglobin less than 7.0 Labs A.m. labs Iron panel Direct Tawanna Haptoglobin Iron supplementation Stool occult blood Chronic bipolar disorder Chronic depression Chronic arthritis Follow up with PCP outpatient Continue home medications Tobacco use Counseled patient on tobacco cessation FEN/PPX Diet NPO DVT ppx not indicated patient ambulating PUD ppx not indicated no history of GERD or GI bleed Discussed plan of care with patient and nurse Admit to [facility] Home medications reconciled Plan discussed with: Patient My Orders Orders - KASSANDRA LAMAS [employer]OR Procedure Category Date Status Time Ceftriaxone Ivpb PHA 11/19/24 Transmitted Rocephin 09:00 Azithromycin 500mg/ PHA 11/19/24 Transmitted 250ml (Zithromax 50 10:00 Admit ADMIT 11/18/24 Transmitted 12:14 Allergies ALVARO 11/18/24 Transmitted 12:14 Code Status CODE 11/18/24 Transmitted 12:14 Ondansetron Hcl PHA 11/18/24 Transmitted (Zofran) 12:15 Complete Blood Count LAB 11/19/24 Verified 04:00 Comprehensive LAB 11/19/24 Verified Metabolic Panel 04:00 Cardiac DIET 11/18/24 Transmitted Diet-2gna,Lofat,Lochol Lunch Acetaminophen Tablet PHA 11/18/24 Transmitted (Tylenol Tablet) 12:15 Date of Service: Nov 18, 2024 Billing Provider: KASSANDRA LAMAS Common Visit Codes: [id number] INP/OBS CARE (HIGH) KASSANDRA LAMAS Nov 18, 2024 12:32
[2024-11-18 13:35] LABS: % Iron Saturation 3.1 % (20-55)
[2024-11-18] MEDS: QUEtiapine FUMARATE 25 MG TAB PO SCH (17:25)
[2024-11-18] MEDS: FERROUS SULFATE 325mg EC TAB PO SCH (17:26)
[2024-11-18 21:33] LABS: Urine Bacteria None Seen /hpf (None Seen)
[2024-11-18] MEDS: DIVALPROEX SODIUM 500 MG PO SCH (22:00)
[2024-11-18 22:13] LABS: Urine Blood Negative /uL (Negative); Urine Clarity Clear (Clear); Urine Color Yellow (Yellow); Urine Protein, UAD Negative (Negative); Urine Squamous Epithelial Cell FEW /hpf (<5); Urine Urobilinogen Normal (Negative); Urine WBC 1 /hpf (0 - 3); Urine pH 5.5 (5.0-9.0)
[2024-11-19] VITALS (14 sets, daily range): BP systolic 96–126; BP diastolic 45–71; PULSE 18–97; RESP 8–18; TEMP 97.5–98.8; O2SAT 92–99
[2024-11-19 07:19] LABS: Basophils # (auto) 0.1 10 ^3/uL (0-0.2); Eosinophils # (auto) 0.2 10 ^3/uL (0-0.8); Monocytes # (auto) 0.6 10 ^3/uL (0-1.3); White Blood Cell 6.4 10^3/uL (4.4-10.8)
[2024-11-19 07:22] LABS: Eosinophils % (auto) 3.1 % (0.0-7.0); Hematocrit 21.8 % (41.0-53.0); Lymphocytes # (auto) 1.8 10 ^3/uL (0.4-5.4); Lymphocytes % (auto) 28.7 % (10.0-50.0); Mean Corpuscular Hemoglobin 22.7 pg (28.0-32.0); Mean Corpuscular Hgb Conc. 31.2 g/dL (32.0-36.0); Monocytes % (auto) 10.1 % (0.0-12.0); Neutrophils # (auto) 3.7 10 ^3/uL (1.6-8.6); Neutrophils % (auto) 57.1 % (37.0-80.0); Nucleated Red Blood Cells % 0.3 %; Platelet Count (auto) 203 10^3/uL (140-450); Red Blood Cells 2.99 10^6/uL (4.5-5.90)
[2024-11-19 07:38] LABS: Albumin 3.4 g/dL (3.2-4.8); Anion Gap 6 (5-15); BUN/Creatinine Ratio 16.3 (10.0-20.0); Blood Urea Nitrogen 17 mg/dL (9-23); Calcium 9.4 mg/dL (8.7-10.4); Carbon Dioxide 26 mmol/L (20-31); Glucose 91 mg/dL (74-106); Potassium 4.3 mmol/L (3.5-5.1); Sodium 142 mmol/L (136-145)
[2024-11-19 07:40] LABS: Alanine Aminotransferase < 9 U/L (7-40); Alkaline Phosphatase 44 U/L (46-116); Aspartate Aminotransferase 9 U/L (13-40); Bilirubin, Total 2.3 mg/dL (0.2-1.0); Chloride 110 mmol/L (98-107); Total Protein 5.4 g/dL (5.7-8.2)
[2024-11-19 07:46] LABS: Red Cell Distribution Width 24.2 % (11.8-14.3)
[2024-11-19 07:48] LABS: Hemoglobin 6.8 g/dL (13.5-17.5)
[2024-11-19] MEDS: cefTRIAXone 1GM/50ML D5W 50 ML IV SCH (09:31)
--- NOTE | 2024-11-19 13:39 | DVHPN2 ---
Reviewed: Care Plan, H&P, Labs, Medications, Previous Orders, Radiology Changes from previous H/P or p: No Changes Eyes: No Pain, No Vision change, No Conjunctivae inflammation, No Eyelid inflammation, No Other, No Redness ENT: No Ear pain, No Ear discharge, No Nose pain, No Nose discharge, No Nose congestion, No Mouth pain, No Mouth swelling, No Throat pain, No Throat swelling, No Other Cardiovascular: No Chest Pain, No Palpitations, No Orthopnea, No Paroxysmal Noc. Dyspnea, No Edema, No Lt Headedness, No Other Respiratory: No Cough, No Dry; Shortness of breath; No SOB with excertion, No Wheezing, No Hemoptysis, No Pleuritic Pain, No Sputum, No Other Gastrointestinal: No Nausea, No Vomiting, No Abdominal Pain, No Diarrhea, No Constipation, No Melena, No Hematochezia, No Other Genitourinary: No Dysuria, No Frequency, No Incontinence, No Hematuria, No Retention, No Other Musculoskeletal: No other, No neck pain, No shoulder pain, No arm pain, No back pain, No hand pain, No leg pain, No foot pain Skin: No Rash, No Lesions, No Jaundice, No Bruising, No Other Objective Vitals Vital Signs Date Time Temp Pulse Resp B/P (MAP) Pulse Ox O2 Delivery O2 Flow Rate FiO2 11/19/24 11:49 98.8 80 16 102/54 (70) 92 98.8 11/19/24 08:05 Nasal Cannula* 3 32 Intake/Output Intake and Output 11/19/24 07:00 Intake Total 1450 ml Output Total 0 ml Balance 1450 ml Intake Oral 250 ml IV Total 300 ml Blood Product 900 ml Output Urine Total 0 ml Medications Current Medications Medications Dose Ordered Sig/Ren Route Start Time Stop Time Status Last Admin Dose Admin Ceftriaxone Sodium 50 ml @ 100 mls/hr DAILY@09 IV 11/19/24 09:00 11/19/24 09:31 100 MLS/HR Azithromycin 250 ml @ 125 mls/hr DAILY IV 11/19/24 10:00 Ondansetron HCl 4 mg Q4HP PRN IV 11/18/24 12:15 Acetaminophen 650 mg Q6HP PRN PO 11/18/24 12:15 Quetiapine Fumarate 12.5 mg QPM PO 11/18/24 18:00 11/18/24 17:25 12.5 MG Patient Own Medication 2 tab HS PO 11/18/24 22:00 Ferrous Sulfate 325 mg BIDWM PO 11/18/24 18:00 11/19/24 09:31 325 MG Laboratory Results Laboratory Tests 11/19/24 06:29 Chemistry Test 11/19/24 06:29 Albumin 3.4 g/dL (3.2-4.8) Calcium Level 9.4 mg/dL (8.7-10.4) Total Protein 5.4 g/dL (5.7-8.2) L LFT Test 11/19/24 06:29 Alanine Aminotransferase (ALT) < 9 U/L (7-40) Alkaline Phosphatase 44 U/L (46-116) L Aspartate Amino Transferase (AST) 9 U/L (13-40) L Total Bilirubin 2.3 mg/dL (0.2-1.0) H Urinalysis Test 11/18/24 21:17 Urine Color Yellow (Yellow) Urine Clarity Clear (Clear) Urine pH 5.5 (5.0-9.0) Urine Specific [place] 1.020 (1.001-1.035) Urine Protein Negative (Negative) Urine Ketones Trace (Negative) Urine Blood Negative /uL (Negative) Urine Nitrite Negative (Negative) Urine Bilirubin Negative (Negative) Urine Urobilinogen Normal mg/dL (Negative) Urine Leukocyte Esterase Negative /uL (Negative) Urine RBC 1 /hpf (0 - 3) Urine WBC 1 /hpf (0 - 3) Urine Squamous Epithelial Cells Few /hpf (<5) Urine Bacteria None seen /hpf (None Seen) Urine Glucose Normal mg/dL (Normal) Labs and/or images reviewed: Labs reviewed by me, Image(s) reviewed by me Assessment/Plan Assessment/Plan Acute symptomatic anemia with hemoglobin 5.3, improved to 6.8 after 2 units RBC transfusion, GI consult for Dr. Molina to rule out any GI causes for anemia Depression Bipolar History of spinal fusion Time spent 55 minutes Patient is full code Advanced care planning time 20 minutes Plan discussed with: Patient My Orders Orders - MICHELLE ANDERSON MD Procedure Category Date Status Time * Gi [employer] Manager CONS 11/19/24 Transmitted 13:33 Date of Service: Nov 19, 2024 Billing Provider: MICHELLE ANDERSON MD Common Visit Codes: [id number] INP/OBS CARE(HIGH) Secondary Visit Codes: [id number] CARE PLAN 30 MINUTES MICHELLE ANDERSON MD Nov 19, 2024 13:39
--- NOTE | 2024-11-19 14:20 | DVHINCON2 ---
GI Consult Consult Note GI consult note Date of Consultation: 11/19/2024 Chief Complaint: Severe anemia Referring Physician: Dr. Ambar Anderson H&P: 79-year-old male presented to ER with weakness and shortness of breath and dizziness for two months No abdominal pain. No nausea or vomiting Patient has noticed constipation for one month, Last BM four days ago No melena or red blood in stool per patient Patient admits to being noncompliant with home medications Per patient SP EGD/colonoscopy 3-4 months ago Past Medical History: Bipolar, depression, arthritis Past Surgical History: Spinal fusion Social History: One pack per day smoking, no drinking ETOH and use of illegal drugs. Family History: Noncontributory Review of Systems: Constitutional: no fever, chill, weight loss HEENT: no eye pain, no hearing loss, no oral lesion, no scleral icterus Heart: no chest pain, no chest pressure Lung: no cough, no dyspnea with exertion Abdomen: see HPI Physical exam: General: NAD, AAOX3 Chest: lung brooks clear to auscultation Heart: RRR, no murmur Abdomen: non-distended, no tenderness to palpation, +BS Labs: Labs Test 11/19/24 06:29 11/18/24 21:17 11/18/24 09:40 11/18/24 07:50 Range/Units White Blood Count 6.4 4.4-10.8 10^3/uL Red Blood Count 2.99 L 4.5-5.90 10^6/uL Hemoglobin 6.8 #*L 13.5-17.5 g/dL Hematocrit 21.8 #L 41.0-53.0 % Mean Corpuscular Volume 73.0 #L 80.0-100.0 fL Mean Corpuscular Hemoglobin 22.7 L 28.0-32.0 pg Mean Corpuscular Hemoglobin Concent 31.2 L 32.0-36.0 g/dL Red Cell Distribution Width 24.2 H 11.8-14.3 % Platelet Count 203 140-450 10^3/uL Mean Platelet Volume 8.8 6.9-10.8 fL Neutrophils (%) (Auto) 57.1 37.0-80.0 % Lymphocytes (%) (Auto) 28.7 10.0-50.0 % Monocytes (%) (Auto) 10.1 0.0-12.0 % Eosinophils (%) (Auto) 3.1 0.0-7.0 % Basophils (%) (Auto) 1.0 0.0-2.0 % Neutrophils # (Auto) 3.7 1.6-8.6 10 ^3/uL Lymphocytes # (Auto) 1.8 0.4-5.4 10 ^3/uL Monocytes # (Auto) 0.6 0-1.3 10 ^3/uL Eosinophils # (Auto) 0.2 0-0.8 10 ^3/uL Basophils # (Auto) 0.1 0-0.2 10 ^3/uL Nucleated Red Blood Cells 0.3 % Sodium Level 142 136-145 mmol/L Potassium Level 4.3 3.5-5.1 mmol/L Chloride Level 110 H 98-107 mmol/L Carbon Dioxide Level 26 20-31 mmol/L Anion Gap 6 5-15 Blood Urea Nitrogen 17 9-23 mg/dL Creatinine 1.04 0.700-1.30 mg/dL Glomerular Filtration Rate Calc 73 >90 mL/min BUN/Creatinine Ratio 16.3 10.0-20.0 Serum Glucose 91 74-106 mg/dL Calcium Level 9.4 8.7-10.4 mg/dL Total Bilirubin 2.3 H 0.2-1.0 mg/dL Aspartate Amino Transferase (AST) 9 L 13-40 U/L Alanine Aminotransferase (ALT) < 9 7-40 U/L Alkaline Phosphatase 44 L 46-116 U/L Total Protein 5.4 L 5.7-8.2 g/dL Albumin 3.4 3.2-4.8 g/dL Urine Color Yellow Yellow Urine Clarity Clear Clear Urine pH 5.5 5.0-9.0 Urine Specific [place] 1.020 1.001-1.035 Urine Protein Negative Negative Urine Ketones Trace Negative Urine Blood Negative Negative /uL Urine Nitrite Negative Negative Urine Bilirubin Negative Negative Urine Urobilinogen Normal Negative mg/dL Urine Leukocyte Esterase Negative Negative /uL Urine RBC 1 0 - 3 /hpf Urine WBC 1 0 - 3 /hpf Urine Squamous Epithelial Cells Few <5 /hpf Urine Bacteria None seen None Seen /hpf Urine Glucose Normal Normal mg/dL Reticulocyte Count (auto) 2.33 H 0.5-1.5 % Haptoglobin 96 34-355 mg/dL Iron Level 12 L 65-175 ug/dL Total Iron Binding Capacity 390 250-425 ug/dL Percent Iron Saturation 3.1 L 20-55 % Differential Total Cells Counted 100.0 100 Neutrophils % (Manual) 73 37.0-80.0 Band Neutrophils % (Manual) 0 Lymphocytes % (Manual) 22 10.0-50.0 Monocytes % (Manual) 2 0-12 Eosinophils % (Manual) 3 0-7 Basophils % (Manual) 0 0.0-2.0 Metamyelocytes % (manual) 0 Myelocytes % (Manual) 0 Promyelocytes % (Manual) 0 Blast Cells % (Manual) 0 Reactive Lymphocytes 0 Platelet Estimate Adequate Hypochromasia (manual) Marked Anisocytosis (manual) Marked Microcytosis Marked Troponin I High Sensitivity 28 </=54 ng/L Imaging: Assessment: Acute symptomatic anemia Constipation Plan: Discussed with Dr. Molina Monitor labs, patient being transfused 3rd unit of PRBCs SOB pending Protonix Colace and MiraLax Unable to acquire results of EGD and colonoscopy We will continue to monitor the patient Discussed plan with patient and RN Thank you for this consult Date of Service: Nov 19, 2024 Billing Provider: NIKKI ANDERSON Common Visit Codes: CONSULT ONLY Consultation Codes: [id number] CONSULT <45MIN NIKKI ANDERSON Nov 19, 2024 14:20
[2024-11-19 14:56] LABS: % Iron Saturation 93.8 % (20-55)
[2024-11-19] MEDS: AZITHROMYCIN 500MG/ 250ML 250 ML IV SCH (16:28)
[2024-11-20] VITALS (19 sets, daily range): BP systolic 99–135; BP diastolic 46–70; PULSE 60–111; RESP 14–26; TEMP 97.6–101.8; O2SAT 90–98
[2024-11-20] MEDS: FUROSEMIDE 20 MG/2 ML VIAL IV ONE (01:32)
[2024-11-20] MEDS: FUROSEMIDE 20 MG/2 ML VIAL ONE (01:55)
[2024-11-20] MEDS: LEVALBUTEROL HCL 1.25 MG/3 ML NEB NEB ONE (02:37)
--- NOTE | 2024-11-20 04:35 | DVH ---
CHEST RADIOGRAPH Indication: sob Technique: Single frontal view of the chest was obtained Comparison: XY CHEST PORTABLE on DOS: 11/18/24 FINDINGS: Lines and Tubes: None Lungs: Stable pulmonary edema and bibasilar opacities. Pleura: No effusion. No pneumothorax. Cardiomediastinal contours: Stable size of the cardiovascular silhouette. Bones: No acute osseous abnormality. IMPRESSION: 1. No significant interval change.
[2024-11-20] MEDS: PANTOPRAZOLE 40 MG TAB PO SCH (05:59)
[2024-11-20 07:04] LABS: Hemoglobin 9.3 g/dL (13.5-17.5)
[2024-11-20 07:07] LABS: Hematocrit 30.3 % (41.0-53.0); Mean Corpuscular Hemoglobin 23.7 pg (28.0-32.0); Mean Corpuscular Hgb Conc. 30.8 g/dL (32.0-36.0); Mean Corpuscular Volume 76.8 fL (80.0-100.0); Platelet Count (auto) 237 10^3/uL (140-450); Red Blood Cells 3.94 10^6/uL (4.5-5.90); White Blood Cell 11.7 10^3/uL (4.4-10.8)
[2024-11-20 07:11] LABS: Red Cell Distribution Width 24.4 % (11.8-14.3)
[2024-11-20 07:13] LABS: Basophils % (manual) 0 (0.0-2.0); Blast Cells 0; Eosinophils % (manual) 0 (0-7); Metamyelocytes % 0; Myelocytes % 0; Promyelocytes % 0; Reactive Lymphocytes 0
[2024-11-20 07:34] LABS: Alanine Aminotransferase < 9 U/L (7-40); Albumin 3.8 g/dL (3.2-4.8); Alkaline Phosphatase 52 U/L (46-116); Anion Gap 9 (5-15); Aspartate Aminotransferase 15 U/L (13-40); Blood Urea Nitrogen 15 mg/dL (9-23); Calcium 9.7 mg/dL (8.7-10.4); Carbon Dioxide 25 mmol/L (20-31); Chloride 105 mmol/L (98-107); Glucose 102 mg/dL (74-106); Potassium 3.9 mmol/L (3.5-5.1); Sodium 139 mmol/L (136-145)
[2024-11-20 07:35] LABS: Total Protein 6.1 g/dL (5.7-8.2)
[2024-11-20 07:36] LABS: Bilirubin, Total 2.6 mg/dL (0.2-1.0)
[2024-11-20] MEDS: ACETAMINOPHEN 325 MG TAB PO PRN (08:00)
[2024-11-20 09:39] LABS: Band Neutrophils % (manual) 3; Monocytes % (manual) 8 (0-12)
[2024-11-20 09:40] LABS: Lymphocytes % (manual) 9 (10.0-50.0)
[2024-11-20 09:41] LABS: Anisocytosis Moderate; Hypochromia Slight; Platelet Estimate Adequate
--- NOTE | 2024-11-20 11:38 | DVHPN2 ---
Reviewed: Care Plan, H&P, Labs, Medications, Previous Orders, Radiology Changes from previous H/P or p: No Changes Eyes: No Pain, No Vision change, No Conjunctivae inflammation, No Eyelid inflammation, No Other, No Redness ENT: No Ear pain, No Ear discharge, No Nose pain, No Nose discharge, No Nose congestion, No Mouth pain, No Mouth swelling, No Throat pain, No Throat swelling, No Other Cardiovascular: No Chest Pain, No Palpitations, No Orthopnea, No Paroxysmal Noc. Dyspnea, No Edema, No Lt Headedness, No Other Respiratory: No Cough, No Dry; Shortness of breath; No SOB with excertion, No Wheezing, No Hemoptysis, No Pleuritic Pain, No Sputum, No Other Gastrointestinal: No Nausea, No Vomiting, No Abdominal Pain, No Diarrhea, No Constipation, No Melena, No Hematochezia, No Other Genitourinary: No Dysuria, No Frequency, No Incontinence, No Hematuria, No Retention, No Other Musculoskeletal: No other, No neck pain, No shoulder pain, No arm pain, No back pain, No hand pain, No leg pain, No foot pain Skin: No Rash, No Lesions, No Jaundice, No Bruising, No Other Objective Vitals Vital Signs Date Time Temp Pulse Resp B/P (MAP) Pulse Ox O2 Delivery O2 Flow Rate FiO2 11/20/24 10:00 93 Nasal Cannula* 2 28 11/20/24 09:00 101.8 99 18 99/70 (80) 101.8 Intake/Output Intake and Output 11/20/24 07:00 Intake Total 3100 ml Output Total 600 ml Balance 2500 ml Intake Oral 2200 ml IV Total 300 ml Blood Product 600 ml Output Urine Total 600 ml # Voids 4 # Bowel Movements 3 Medications Current Medications Medications Dose Ordered Sig/Ren Route Start Time Stop Time Status Last Admin Dose Admin Ceftriaxone Sodium 50 ml @ 100 mls/hr DAILY@09 IV 11/19/24 09:00 11/20/24 08:01 100 MLS/HR Azithromycin 250 ml @ 125 mls/hr DAILY IV 11/19/24 10:00 11/20/24 10:23 125 MLS/HR Ondansetron HCl 4 mg Q4HP PRN IV 11/18/24 12:15 Acetaminophen 650 mg Q6HP PRN PO 11/18/24 12:15 11/20/24 08:00 650 MG Quetiapine Fumarate 12.5 mg QPM PO 11/18/24 18:00 11/19/24 18:34 12.5 MG Patient Own Medication 2 tab HS PO 11/18/24 22:00 Ferrous Sulfate 325 mg BIDWM PO 11/18/24 18:00 11/20/24 08:01 325 MG Docusate Sodium 100 mg BIDPRN PRN PO 11/19/24 14:30 Pantoprazole Sodium 40 mg DAILY@0600 PO 11/20/24 06:00 11/20/24 05:59 40 MG Laboratory Results Laboratory Tests 11/20/24 05:51 Chemistry Test 11/20/24 05:51 Albumin 3.8 g/dL (3.2-4.8) Calcium Level 9.7 mg/dL (8.7-10.4) Total Protein 6.1 g/dL (5.7-8.2) LFT Test 11/20/24 05:51 Alanine Aminotransferase (ALT) < 9 U/L (7-40) Alkaline Phosphatase 52 U/L (46-116) Aspartate Amino Transferase (AST) 15 U/L (13-40) Total Bilirubin 2.6 mg/dL (0.2-1.0) H Urinalysis Test 11/18/24 21:17 Urine Color Yellow (Yellow) Urine Clarity Clear (Clear) Urine pH 5.5 (5.0-9.0) Urine Specific [place] 1.020 (1.001-1.035) Urine Protein Negative (Negative) Urine Ketones Trace (Negative) Urine Blood Negative /uL (Negative) Urine Nitrite Negative (Negative) Urine Bilirubin Negative (Negative) Urine Urobilinogen Normal mg/dL (Negative) Urine Leukocyte Esterase Negative /uL (Negative) Urine RBC 1 /hpf (0 - 3) Urine WBC 1 /hpf (0 - 3) Urine Squamous Epithelial Cells Few /hpf (<5) Urine Bacteria None seen /hpf (None Seen) Urine Glucose Normal mg/dL (Normal) Labs and/or images reviewed: Labs reviewed by me, Image(s) reviewed by me Assessment/Plan Assessment/Plan Acute hypoxic respiratory failure: Oxygen by nasal cannula albuterol Atrovent consult for Dr. Mar Acute community-acquired pneumonia: Rocephin azithromycin Ruled out congestive heart failure echocardiogram BNP cardiology consult Acute symptomatic anemia with hemoglobin 5.3, improved to 6.8 after 2 units RBC transfusion, GI consult for Dr. Molina to rule out any GI causes for anemia Depression Bipolar History of spinal fusion Mallika test pending Rapid flu test pending D-dimer pending Time spent 55 minutes Patient is full code Advanced care planning time 20 minutes Plan discussed with: Patient My Orders Orders - MICHELLE ANDERSON MD Procedure Category Date Status Time * Gi [facility] Head Chef CONS 11/19/24 Transmitted 13:33 Date of Service: Nov 20, 2024 Billing Provider: MICHELLE ANDERSON MD Common Visit Codes: [id number] CARE 30-74 MIN MICHELLE ANDERSON MD Nov 20, 2024 11:38
--- NOTE | 2024-11-20 11:57 | DVHINCON2 ---
Date Seen: Nov 20, 2024 Referring Physician MD Arnaud Reason for Consultation SOB History of Present Illness This is an 79-year-old male patient who presents to the emergency room with chief complaint of generalized weakness and shortness of breath for approximately two weeks prior to emergency room arrival. The patient also reports chest pain. He describes it as provoked by inhalation, sharp in nature, intermittent, substernal and nonradiating. Cardiology has now been consulted for shortness of breath. Initial twelve lead electrocardiogram reveals normal sinus rhythm with right bundle branch block. Initial troponin level of 28ng/L. Significant past medical history includes anemia, arthritis, bipolar disorder, depression, skin cancer, and obesity. Past Medical History Past medical history reviewed. No other significant than mentioned above. Past Surgical History Previous spinal surgery Family History: FH: cancer G8 BROTHER G8 SISTER FH: heart disease G8 FATHER Family History Family history reviewed. Social History Patient has a 60 pack-year history, quit smoking approximately one month ago Patient denies any illicit drug use Patient denies any alcohol use Allergies: Coded Allergies: Aspirin (Verified Allergy, Unknown, 11/18/24) Home Meds Active Scripts Cefdinir (Cefdinir) 300 Mg Cap, 1 CAP PO BID for 10 Days, #20 CAP Prov:CORINA GARCIA MD 11/29/22 Cyclobenzaprine Hcl (Cyclobenzaprine Hcl) 5 Mg Tab, 1 TAB PO TID for 10 Days, #30 TAB Prov:CORINA GARCIA MD 11/29/22 Diclofenac Potassium (Diclofenac Potassium) 50 Mg Tab, 1 TAB PO TIDP for 10 Days, #30 TAB Prov:CORINA GARCIA MD 11/29/22 Doxycycline Monohydrate (Doxycycline Monohydrate) 100 Mg Cap, 1 CAP PO BID, #14 CAP Prov:ALEC BAEZ MD 04/15/21 Divalproex Sodium (Divalproex Sodium Er) 500 Mg Tab, 2 TAB PO HS for 30 Days, #60 TAB Prov:ALEC BAEZ MD 04/15/21 Quetiapine Fumerate (Seroquel) 50 Mg Tab, 1 TAB PO HS, #30 TAB 0 Refills Prov:ALEC BAEZ MD 04/15/21 Quetiapine Fumerate (QUETIAPINE FUMARATE) 25 Mg Tab, 12.5 MG PO QAM for 30 Days, #15 TAB Prov:ALEC BAEZ MD 04/15/21 Quetiapine Fumerate (QUETIAPINE FUMARATE) 25 Mg Tab, 12.5 MG PO QPM for 30 Days, #15 TAB Prov:ALEC BAEZ MD 04/15/21 Reported Medications Docusate Sodium (Docusate Sodium) 100 Mg Tab, 100 MG PO BIDP PRN for FOR CONSTIPATION for 30 Days, MG 04/12/21 Oxycodone W/ Acetaminophen (Apap/Oxycodone) 1 Tab Tab, 1 TAB PO TIDP PRN for Pain, #90 TAB 04/12/21 Morphine Sulfate (Morphine Sulfate) 30 Mg Tab, 1 TAB PO TIDP for Pain, #90 TAB 04/12/21 Home Meds Home medications reviewed. Current Medications Current Medications Medications (Trade) Dose Ordered Sig/Ren Route PRN Reason Start Time Stop Time Status Last Admin Docusate Sodium (Colace Capsule) 100 mg BIDPRN PRN PO FOR CONSTIPATION 11/19/24 14:30 Pantoprazole Sodium (Protonix Tablet) 40 mg DAILY@0600 PO 11/20/24 06:00 11/20/24 05:59 Albuterol (Ventolin Medneb) 2.5 mg Q4HR NEB 11/20/24 14:00 UNV Ipratropium [place] (Atrovent Medneb) 0.5 mg Q4HR NEB 11/20/24 14:00 UNV Review of Systems Constitutional: Generalized weakness Ears, Nose, & Throat: No symptom reported Eyes: No symptom reported Neurological: No symptoms reported Pulmonary/Respiratory: Shortness of breath Cardiovascular: No symptom reported Gastrointestinal: No symptom reported Genitourinary: No symptom reported Musculoskeletal: No symptom reported Skin: No symptom reported Psychiatric: No symptom reported Endocrine: No symptom reported Hematologic/Lymphatic: No symptom reported Vital Signs Vital Signs Date Time Temp Pulse Resp B/P (MAP) Pulse Ox O2 Delivery O2 Flow Rate FiO2 11/20/24 10:00 93 Nasal Cannula* 2 28 11/20/24 09:00 101.8 99 18 99/70 (80) 101.8 Physical Exam General Appearance: Cooperative. Obese Pulmonary/Respiratory: Clear, bilateral breaths sounds. Cardiovascular/Chest: Regular rate and rhythm. Peripheral Pulses: 2+ Radial (R). 2+ Radial (L). 2+ Pedal (R). 2+ Pedal (L) Abdominal Exam: Normal bowel sounds. Ankle Exam: Negative ankle edema Lower extremities: Negative lower extremity edema Neuro/Mental Status: A/OX4, coherent. Thoughts/Psych: Normal thought pattern. Appropriate mood and affect. Good judgment and insight. Appearance: No acute distress. Skin Exam: Normal inspection. Normal color. Warm and dry. Labs/Diagnostic Data Labs Test 11/20/24 05:51 11/19/24 20:23 11/19/24 06:29 11/18/24 21:17 Range/Units White Blood Count 11.7 #H 4.4-10.8 10^3/uL Red Blood Count 3.94 L 4.5-5.90 10^6/uL Hemoglobin 9.3 #L 13.5-17.5 g/dL Hematocrit 30.3 #L 41.0-53.0 % Mean Corpuscular Volume 76.8 #L 80.0-100.0 fL Mean Corpuscular Hemoglobin 23.7 L 28.0-32.0 pg Mean Corpuscular Hemoglobin Concent 30.8 L 32.0-36.0 g/dL Red Cell Distribution Width 24.4 H 11.8-14.3 % Platelet Count 237 140-450 10^3/uL Mean Platelet Volume 8.7 6.9-10.8 fL Neutrophils (%) (Auto) 37.0-80.0 % Lymphocytes (%) (Auto) 10.0-50.0 % Monocytes (%) (Auto) 0.0-12.0 % Basophils (%) (Auto) 0.0-2.0 % Neutrophils # (Auto) 1.6-8.6 10 ^3/uL Lymphocytes # (Auto) 0.4-5.4 10 ^3/uL Monocytes # (Auto) 0-1.3 10 ^3/uL Differential Total Cells Counted 100.0 100 Neutrophils % (Manual) 80 37.0-80.0 Band Neutrophils % (Manual) 3 Lymphocytes % (Manual) 9 L 10.0-50.0 Monocytes % (Manual) 8 0-12 Eosinophils % (Manual) 0 0-7 Basophils % (Manual) 0 0.0-2.0 Metamyelocytes % (manual) 0 Myelocytes % (Manual) 0 Promyelocytes % (Manual) 0 Blast Cells % (Manual) 0 Reactive Lymphocytes 0 Platelet Estimate Adequate Hypochromasia (manual) Slight Anisocytosis (manual) Moderate Microcytosis Slight Sodium Level 139 136-145 mmol/L Potassium Level 3.9 3.5-5.1 mmol/L Chloride Level 105 98-107 mmol/L Carbon Dioxide Level 25 20-31 mmol/L Anion Gap 9 5-15 Blood Urea Nitrogen 15 9-23 mg/dL Creatinine 1.00 0.700-1.30 mg/dL Glomerular Filtration Rate Calc 76 >90 mL/min BUN/Creatinine Ratio 15.0 10.0-20.0 Serum Glucose 102 74-106 mg/dL Calcium Level 9.7 8.7-10.4 mg/dL Total Bilirubin 2.6 H 0.2-1.0 mg/dL Aspartate Amino Transferase (AST) 15 13-40 U/L Alanine Aminotransferase (ALT) < 9 7-40 U/L Alkaline Phosphatase 52 46-116 U/L Total Protein 6.1 5.7-8.2 g/dL Albumin 3.8 3.2-4.8 g/dL Stool Occult Blood Negative Negative Stool Occult Blood Sample #3 Negative Eosinophils (%) (Auto) 3.1 0.0-7.0 % Eosinophils # (Auto) 0.2 0-0.8 10 ^3/uL Basophils # (Auto) 0.1 0-0.2 10 ^3/uL Nucleated Red Blood Cells 0.3 % Iron Level 334 H 65-175 ug/dL Total Iron Binding Capacity 356 250-425 ug/dL Percent Iron Saturation 93.8 H 20-55 % Vitamin B12 Level 646 211-911 pg/mL Urine Color Yellow Yellow Urine Clarity Clear Clear Urine pH 5.5 5.0-9.0 Urine Specific [place] 1.020 1.001-1.035 Urine Protein Negative Negative Urine Ketones Trace Negative Urine Blood Negative Negative /uL Urine Nitrite Negative Negative Urine Bilirubin Negative Negative Urine Urobilinogen Normal Negative mg/dL Urine Leukocyte Esterase Negative Negative /uL Urine RBC 1 0 - 3 /hpf Urine WBC 1 0 - 3 /hpf Urine Squamous Epithelial Cells Few <5 /hpf Urine Bacteria None seen None Seen /hpf Urine Glucose Normal Normal mg/dL Test 11/18/24 09:40 11/18/24 07:50 Range/Units Reticulocyte Count (auto) 2.33 H 0.5-1.5 % Haptoglobin 96 34-355 mg/dL Troponin I High Sensitivity 28 </=54 ng/L Assessment Chest pain in the setting of severe anemia Rule out structural heart disease Acute hypoxic respiratory failure secondary to pneumonia Arthritis Depression Bipolar History of tobacco use Obesity Plan/Recommendation We will continue with the following plan/recommendations (Dr. Glaser): We will proceed with obtaining a transthoracic echocardiogram to evaluate cardiac function. Chest pain likely in the setting of severe anemia. We will recommend for close monitoring of hemoglobin and hematocrit and PRBC transfusions as needed. Avoid anticoagulation therapy. In the setting of an unremarkable echocardiogram, there is no further inpatient cardiac workup indicated. Thank you for allowing us to care for this patient. Please call with any questions or concerns. Critical care time spent: 44 minutes This medical document was created using an electronic medical record system with voice recognition software and computerized dictation system. Although this document has been carefully reviewed, there might still be some phonetic and typographical errors. Occasional wrong-word or ``sound-alike substitutions may have occurred due to the inherent limitations of voice recognition software. These areas are purely typographical due to imperfections of the software programs and do not reflect any compromise in the patient's medical care. Please read the chart carefully and recognize, using context, where these substitutions have occurred. Plan discussed with: Patient NYHA Physical activity limitations: NA Date of Service: Nov 20, 2024 Billing Provider: KEVIN GLASER MD Cardiology Common Codes: [id number] INP/OBS CARE (High) Cardiology Consultation Codes: [id number] CONSULT <45MIN RANJIT SOUZA Nov 20, 2024 11:57
[2024-11-20] MEDS: ONDANSETRON HCL 4 MG/2 ML VIAL IV PRN (13:19)
[2024-11-20] MEDS: IPRATROPIUM BROM 0.5 MG/2.5ML INH SOL NEB SCH (14:06)
[2024-11-20] MEDS: ALBUTEROL SULF 2.5 MG/0.5ML(0.5%) NEB SOLN NEB SCH (14:06)
--- NOTE | 2024-11-20 15:20 | DVHSR ---
APPROVED REPORT EXAM: Two-dimensional and M-mode echocardiogram with Doppler and color Doppler. Blood Pressure: 108/46 mmHg INDICATION Eval for cardiac function RISK FACTORS Height: 70, Weight: 206 DIMENSIONS LVDd (3.8-5.7cm)LA (2D)4.0 (1.9-4.0cm)Aortic Root (2.0-3.7cm) EF (%) 57.0 (55-70%)Rt. Atrium4.7 (1.9-4.0cm)Asc. Aorta cm Mitral Valve MitralMitral Stenosis E wave1.48m/sMV Mean GR.4mmHg A wave0.92m/sMV Peak GR.197mmHg E/A ratio1.62D MVAcm2 DECEL [id number] 1/2 Kmzh27ry IVRTmsDop MVA3.70cm2 Aortic Valve Aortic ValveAortic Stenosis V10.94m/Dariel Mean GR.72mmHg V25.12m/Dariel Peak GR.105mmHg LVOT Diameter2.0 (1.8-2.4cm)Doppler AVA0.58cm2 AI P 1/2 Merl178.73ms Tricuspid Valve TR Velocity3.60m/s [id number] LEFT VENTRICLE Normal left ventricular size. Wall thickness is likely normal. Ejection fraction is estimated at 60 %. There is no gross wall motion abnormalities but endocardial definition is suboptimal. There is a grade II diastolic dysfunction. E to E prime ratio is more than 15. RIGHT VENTRICLE The right ventricle is of normal size. Right ventricular systolic function is normal. ATRIA Both atria are moderately dilated in size. MITRAL VALVE There is ljyfyrnm-[id number]-nrtmhg mitral annular calcification. No significant mitral regurgitation. Mean valve gradient is 4 mm Hg at a heart rate of 100 beats per minute. PULMONIC VALVE Not well visualized. TRICUSPID VALVE Normal structure and function. There is mild tricuspid regurgitation. PA systolic pressure is estim ated at 65-70 mm Hg. AORTIC VALVE The valve is not well visualized. Leaflets appear to be significantly calcified. Peak aortic veloci ty is 5.0 m/sec with a mean gradient of 70 mm Hg. Aortic valve area is estimated at 0.7 cm2. There is trace insufficiency. GREAT VESSELS The aortic root is of normal size. Proximal ascending aorta is not visualized. PERICARDIAL EFFUSION No pericardial effusion. IVC is dilated in size and collapses normally with inspiration. Other Information Technically limited study due to body habitus. Conclusion Calcified aortic valve with very severe aortic stenosis. Normal left ventricular size and systolic function. Normal right ventricular size and systolic function. Grade II diastolic dysfunction. Xuakfzko-jr-ozwsnk mitral annular calcification with mild stenosis and mild regurgitation. [id number]-[id number] pulmonary hypertension.
[2024-11-20 17:51] LABS: COVID19 ANTIGEN SOFIA FIA NEGATIVE (NEGATIVE)
[2024-11-20 17:59] LABS: Rapid Influenza A Positive (Negative); Rapid Influenza B Negative (Negative)
--- NOTE | 2024-11-20 19:08 | DVH ---
EXAM: US ABDOMEN COMPLETE SONOGRAM HISTORY: elevated liver tests anemia COMPARISON: None TECHNIQUE: Real-time grayscale and color flow images of the abdomen were obtained. FINDINGS: LIVER: Liver measures 16 cm craniocaudal. Liver parenchyma is diffusely echogenic. No focal lesion is identified. No intrahepatic ductal dilatation. Normal directional flow is seen in the portal vein. GALLBLADDER: There are several gallstones. No gallbladder wall edema or pericholecystic fluid. Sonog raphic Vizcarra's sign is negative. COMMON BILE DUCT: 0.4 cm in caliber. SPLEEN: 10 cm in length. No focal lesion is identified. PANCREAS: Visualized portions are unremarkable. KIDNEYS: The right kidney measures 11 cm in length. The left kidney measures 10.5 cm in length. No hydronephrosis noted bilaterally. No suspicious renal lesions. No sonographic evidence of calcul i. AORTA, IVC: Visualized portions are unremarkable. OTHER: None. IMPRESSION: 1. No sonographic evidence for an acute intra-abdominal process. 2. Cholelithiasis with no evidence of cholecystitis. 3. Hepatic steatosis.
--- NOTE | 2024-11-20 21:19 | DVHPN2 ---
Progress Note Date Seen: Nov 20, 2024 Resident Creating Document: MARÍA TAYLOR RESIDENT Medical Necessity Reason Pt with a Central, PICC or Fol: No Medical Necessity Reason severe anemia Subjective Review of Systems This is an 79-year-old male with past medical history of bipolar, depression and arthritis who presented to ER with weakness and shortness of breath and dizziness for two months. He denies nauseas, hematemesis, and abdominal pain or melena. He did noticed constipation for a month. Patient has noticed constipation for one month, Last BM four days ago. Patient admits to being noncompliant with home medications Per patient he had EGD/colonoscopy 3-4 months ago. patient had echo which reveal EF 60% with severely stenosed aortic valved with an estimated valve of 0.7 cm2. labs review wbc: 5.3--> 11.2 hgb: 5.3--> 6.8--> 9.3 after 4 units of blood transfusion MCV: 67.8 MCHC: 29.1 Heptoglobin: 96 reticulocyte: 2.33 PLT: 237 Objective vital signs Vital Sign Date Time Temp Pulse Resp B/P (MAP) Pulse Ox O2 Delivery O2 Flow Rate FiO2 11/20/24 19:48 100 20 93 11/20/24 16:54 100.1 118/64 (82) 100.1 11/20/24 14:06 Nasal Cannula 4.0 11/20/24 14:06 28 Total Intake and Output 11/19/24 11/19/24 11/20/24 15:00 23:00 07:00 Intake Total 50 ml 1950 ml 1100 ml Output Total 600 ml Balance 50 ml 1950 ml 500 ml medications Current Medications Medications Dose Ordered Sig/Ren Route Start Time Stop Time Status Last Admin Dose Admin Ceftriaxone Sodium 50 ml @ 100 mls/hr DAILY@09 IV 11/19/24 09:00 11/20/24 08:01 100 MLS/HR Azithromycin 250 ml @ 125 mls/hr DAILY IV 11/19/24 10:00 11/20/24 10:23 125 MLS/HR Ondansetron HCl 4 mg Q4HP PRN IV 11/18/24 12:15 11/20/24 13:19 4 MG Acetaminophen 650 mg Q6HP PRN PO 11/18/24 12:15 11/20/24 08:00 650 MG Quetiapine Fumarate 12.5 mg QPM PO 11/18/24 18:00 11/20/24 17:51 12.5 MG Patient Own Medication 2 tab HS PO 11/18/24 22:00 Ferrous Sulfate 325 mg BIDWM PO 11/18/24 18:00 11/20/24 17:51 325 MG Docusate Sodium 100 mg BIDPRN PRN PO 11/19/24 14:30 Pantoprazole Sodium 40 mg DAILY@0600 PO 11/20/24 06:00 11/20/24 05:59 40 MG Albuterol 2.5 mg Q4HR NEB 11/20/24 14:00 11/20/24 19:38 2.5 MG Ipratropium [place] 0.5 mg Q4HR NEB 11/20/24 14:00 11/20/24 19:38 0.5 MG Examination General: NAD, AAOX3 Chest: lung brooks clear to auscultation Heart: RRR, no murmur Abdomen: non-distended, no tenderness to palpation, +BS Rectal examination: No blood on examining finger laboratory and microbiology Laboratory Tests 11/20/24 05:51 Test 11/20/24 05:51 Range/Units Serum Glucose 102 74-106 mg/dL Problem List/Assessment/Plan Problem List/Assessment/Plan Acute symptomatic anemia --> Monitor labs, patient being transfused 3rd unit of PRBCs --> Protonix --> Carafate --> Recent EGD/ Colonoscopy at outside facility. Need to obtain the records --> Need cardiac clearance for EGD Constipation --> Colace and MiraLax Cholelithiasis with no evidence of cholecystitis --> Continue to monitor Severe aortic stenosis --> area 0.7cm2 --> [facility] Pneumonia --> Ceftriaxone/ azithromycin --> levalbuterol/ipratropium Acute hypoxic respiratory failure --> Continue oxygen --> continue breathing treatment Arthritis --> Continue home meds Plan: Monitor labs, patient being transfused 3rd unit of PRBCs SOB pending Protonix ' Goal of care discussed for more than 35 minutes Case and plan discussed with DR. Molina Thank you for this consult. Plan discussed with: Patient My Orders My Orders Orders - MARÍA TAYLOR RESIDENT Procedure Category Date Status Time Obtain Consent For: ORDERS 11/20/24 Transmitted 12:56 Npo (Nothing By DIET 11/20/24 Transmitted Mouth) Diet Lunch Obtain Consent For ALVARO 11/20/24 In Process Anesthesia 12:56 CC Plasma Assessment Blood Product Administration S: [id number] MARÍA TAYLOR RESIDENT Nov 20, 2024 21:19
--- NOTE | 2024-11-20 23:23 | DVHINCON2 ---
Date of service: Nov 20, 2024 Referring Physician Mello Lares MD Reason for Consultation Acute hypoxic respiratory failure, influenza A and pneumonia History of Present Illness An 79-year-old man with past medical history of bipolar disorder, depression, arthritis, and spinal fusion who presented to the ED on 11/18/24 with c/o weakness, shortness of breath, and dizziness for 5-6 weeks. Patient reports that he has been progressively getting weaker and weaker over the last 5-6 weeks. Reports being compliant with his medications. Denied bleeding, chest pain, abdominal pain, N/V, any trauma or falls. Patient was admitted for further care, and pulmonary consultation is requested for evaluation and management of acute hypoxic respiratory failure, influenza A and pneumonia. Review of Systems: 14-point review of systems negative unless otherwise noted above. Past Medical History: Bipolar disorder, depression, arthritis Past Surgical History: Spinal fusion and colonoscopy Medications: Reviewed. Allergies: Aspirin. Family History: Heart disease, cancer. Mom w/ Alzheimer's. Social History: Smoker, smokes <1 pack per day. No alcohol or illicit drug use. Family History: FH: cancer G8 BROTHER G8 SISTER FH: heart disease G8 FATHER Allergies: Coded Allergies: Aspirin (Verified Allergy, Unknown, 11/18/24) Home Meds Active Scripts Cefdinir (Cefdinir) 300 Mg Cap, 1 CAP PO BID for 10 Days, #20 CAP Prov:CORINA GARCIA MD 11/29/22 Cyclobenzaprine Hcl (Cyclobenzaprine Hcl) 5 Mg Tab, 1 TAB PO TID for 10 Days, #30 TAB Prov:CORINA GARCIA MD 11/29/22 Diclofenac Potassium (Diclofenac Potassium) 50 Mg Tab, 1 TAB PO TIDP for 10 Days, #30 TAB Prov:CORINA GARCIA MD 11/29/22 Doxycycline Monohydrate (Doxycycline Monohydrate) 100 Mg Cap, 1 CAP PO BID, #14 CAP Prov:ALEC BAEZ MD 04/15/21 Divalproex Sodium (Divalproex Sodium Er) 500 Mg Tab, 2 TAB PO HS for 30 Days, #60 TAB Prov:ALEC BAEZ MD 04/15/21 Quetiapine Fumerate (Seroquel) 50 Mg Tab, 1 TAB PO HS, #30 TAB 0 Refills Prov:ALEC BAEZ MD 04/15/21 Quetiapine Fumerate (QUETIAPINE FUMARATE) 25 Mg Tab, 12.5 MG PO QAM for 30 Days, #15 TAB Prov:ALEC BAEZ MD 04/15/21 Quetiapine Fumerate (QUETIAPINE FUMARATE) 25 Mg Tab, 12.5 MG PO QPM for 30 Days, #15 TAB Prov:ALEC BAEZ MD 04/15/21 Reported Medications Docusate Sodium (Docusate Sodium) 100 Mg Tab, 100 MG PO BIDP PRN for FOR CONSTIPATION for 30 Days, MG 04/12/21 Oxycodone W/ Acetaminophen (Apap/Oxycodone) 1 Tab Tab, 1 TAB PO TIDP PRN for Pain, #90 TAB 04/12/21 Morphine Sulfate (Morphine Sulfate) 30 Mg Tab, 1 TAB PO TIDP for Pain, #90 TAB 04/12/21 Current Medications Current Medications Medications (Trade) Dose Ordered Sig/Ren Route PRN Reason Start Time Stop Time Status Last Admin Pantoprazole Sodium (Protonix Tablet) 40 mg DAILY@0600 PO 11/20/24 06:00 11/20/24 05:59 Albuterol (Ventolin Medneb) 2.5 mg Q4HR NEB 11/20/24 14:00 11/20/24 19:38 Ipratropium [place] (Atrovent Medneb) 0.5 mg Q4HR NEB 11/20/24 14:00 11/20/24 19:38 Vital Signs Vital Signs Date Time Temp Pulse Resp B/P (MAP) Pulse Ox O2 Delivery O2 Flow Rate FiO2 11/20/24 21:34 108 20 92 Nasal Cannula* 3 32 11/20/24 21:00 100.1 114/54 (74) 100.1 Physical Exam Gen.: Patient lying in bed in no apparent distress. On supplemental oxygen. Head: Normocephalic, atraumatic. Eyes: EOMI/PERRLA. Ears: Normal hearing. Normal anatomy. Neck/trachea: Trachea midline, supple. Nose: Normal external anatomy. Mouth: Moist mucous membranes. Chest: Decreased air entry bilaterally. No wheezing or rhonchi. Cardiovascular: Positive S1, positive S2. Regular rate and rhythm. Abdomen: Positive bowel sounds in all 4 quadrants. Soft, non-tender, non- distended. : Deferred. Rectal: Deferred. Skin: Warm, dry. Intact. Extremities: 2+ radial pulses bilaterally. No lower extremity edema. Neuro: Awake, alert, oriented x3. No gross motor or sensory deficits. Cranial nerves II through XII intact. Gait not assessed. Labs/Diagnostic Data Labs Test 11/20/24 16:45 11/20/24 12:34 11/20/24 05:51 11/19/24 20:23 Range/Units Influenza Type A Antigen Positive Negative Influenza Type B Antigen Negative Negative SARS-CoV-2 Antigen (Rapid) Negative NEGATIVE D-Dimer, Quantitative 1.67 H 0.0-0.49 mg/L FEU White Blood Count 11.7 #H 4.4-10.8 10^3/uL Red Blood Count 3.94 L 4.5-5.90 10^6/uL Hemoglobin 9.3 #L 13.5-17.5 g/dL Hematocrit 30.3 #L 41.0-53.0 % Mean Corpuscular Volume 76.8 #L 80.0-100.0 fL Mean Corpuscular Hemoglobin 23.7 L 28.0-32.0 pg Mean Corpuscular Hemoglobin Concent 30.8 L 32.0-36.0 g/dL Red Cell Distribution Width 24.4 H 11.8-14.3 % Platelet Count 237 140-450 10^3/uL Mean Platelet Volume 8.7 6.9-10.8 fL Neutrophils (%) (Auto) 37.0-80.0 % Lymphocytes (%) (Auto) 10.0-50.0 % Monocytes (%) (Auto) 0.0-12.0 % Basophils (%) (Auto) 0.0-2.0 % Neutrophils # (Auto) 1.6-8.6 10 ^3/uL Lymphocytes # (Auto) 0.4-5.4 10 ^3/uL Monocytes # (Auto) 0-1.3 10 ^3/uL Differential Total Cells Counted 100.0 100 Neutrophils % (Manual) 80 37.0-80.0 Band Neutrophils % (Manual) 3 Lymphocytes % (Manual) 9 L 10.0-50.0 Monocytes % (Manual) 8 0-12 Eosinophils % (Manual) 0 0-7 Basophils % (Manual) 0 0.0-2.0 Metamyelocytes % (manual) 0 Myelocytes % (Manual) 0 Promyelocytes % (Manual) 0 Blast Cells % (Manual) 0 Reactive Lymphocytes 0 Platelet Estimate Adequate Hypochromasia (manual) Slight Anisocytosis (manual) Moderate Microcytosis Slight Sodium Level 139 136-145 mmol/L Potassium Level 3.9 3.5-5.1 mmol/L Chloride Level 105 98-107 mmol/L Carbon Dioxide Level 25 20-31 mmol/L Anion Gap 9 5-15 Blood Urea Nitrogen 15 9-23 mg/dL Creatinine 1.00 0.700-1.30 mg/dL Glomerular Filtration Rate Calc 76 >90 mL/min BUN/Creatinine Ratio 15.0 10.0-20.0 Serum Glucose 102 74-106 mg/dL Calcium Level 9.7 8.7-10.4 mg/dL Total Bilirubin 2.6 H 0.2-1.0 mg/dL Aspartate Amino Transferase (AST) 15 13-40 U/L Alanine Aminotransferase (ALT) < 9 7-40 U/L Alkaline Phosphatase 52 46-116 U/L B-Type Natriuretic Peptide 370.07 0-100 pg/mL Total Protein 6.1 5.7-8.2 g/dL Albumin 3.8 3.2-4.8 g/dL Stool Occult Blood Negative Negative Stool Occult Blood Sample #3 Negative Test 11/19/24 06:29 11/18/24 21:17 11/18/24 09:40 11/18/24 07:50 Range/Units Eosinophils (%) (Auto) 3.1 0.0-7.0 % Eosinophils # (Auto) 0.2 0-0.8 10 ^3/uL Basophils # (Auto) 0.1 0-0.2 10 ^3/uL Nucleated Red Blood Cells 0.3 % Iron Level 334 H 65-175 ug/dL Total Iron Binding Capacity 356 250-425 ug/dL Percent Iron Saturation 93.8 H 20-55 % Vitamin B12 Level 646 211-911 pg/mL Urine Color Yellow Yellow Urine Clarity Clear Clear Urine pH 5.5 5.0-9.0 Urine Specific [place] 1.020 1.001-1.035 Urine Protein Negative Negative Urine Ketones Trace Negative Urine Blood Negative Negative /uL Urine Nitrite Negative Negative Urine Bilirubin Negative Negative Urine Urobilinogen Normal Negative mg/dL Urine Leukocyte Esterase Negative Negative /uL Urine RBC 1 0 - 3 /hpf Urine WBC 1 0 - 3 /hpf Urine Squamous Epithelial Cells Few <5 /hpf Urine Bacteria None seen None Seen /hpf Urine Glucose Normal Normal mg/dL Reticulocyte Count (auto) 2.33 H 0.5-1.5 % Haptoglobin 96 34-355 mg/dL Troponin I High Sensitivity 28 </=54 ng/L Assessment Impression: Acute hypoxic respiratory failure Dependence on supplemental oxygen Influenza A Pulmonary edema Pneumonia, likely gram negative Plan: Supplemental oxygen 3 LPM NC Titrate to keep O2 sats above 92%. Taper O2 as tolerated. Continue bronchodilators. Tamiflu course Continue antibiotics Monitor renal function. Monitor electrolytes. Supplement as necessary. Monitor ins and outs. DVT prophylaxis. Prognosis: Poor given patient's multiple co-morbidities. Rest of plan per hospitalist and other consultants. Thank you, Dr. Lares, for allowing me to participate in this patient's care. Further recommendations will depend on the patient's clinical course. Please do not hesitate to contact me if you have any questions or concerns. This medical document was created using an electronic medical record system with [employer] computerized dictation system. Although these documentations are being carefully reviewed, there may still be some phonetic and typographical changes. The errors are purely typographical, due to imperfection on the software program, and do not reflect any compromise in the patient's medical care. Plan discussed with: Patient, Other (DOT Fuentes/MD Lares) LUZ NEWTON MD Nov 20, 2024 23:23
[2024-11-21] VITALS (20 sets, daily range): BP systolic 99–115; BP diastolic 51–57; PULSE 80–105; RESP 14–26; TEMP 98–98.7; O2SAT 90–100
[2024-11-21 03:07] LABS: INR 1.32 (0.9-1.15); Partial Thromboplastin Time 33.4 SEC (24.5-34.5); Prothrombin Time 13.7 sec (9.3-11.8)
--- NOTE | 2024-11-21 10:12 | DVHPN2 ---
Reviewed: Care Plan, H&P, Labs, Medications, Previous Orders, Radiology Changes from previous H/P or p: No Changes Eyes: No Pain, No Vision change, No Conjunctivae inflammation, No Eyelid inflammation, No Other, No Redness ENT: No Ear pain, No Ear discharge, No Nose pain, No Nose discharge, No Nose congestion, No Mouth pain, No Mouth swelling, No Throat pain, No Throat swelling, No Other Cardiovascular: No Chest Pain, No Palpitations, No Orthopnea, No Paroxysmal Noc. Dyspnea, No Edema, No Lt Headedness, No Other Respiratory: No Cough, No Dry; Shortness of breath; No SOB with excertion, No Wheezing, No Hemoptysis, No Pleuritic Pain, No Sputum, No Other Gastrointestinal: No Nausea, No Vomiting, No Abdominal Pain, No Diarrhea, No Constipation, No Melena, No Hematochezia, No Other Genitourinary: No Dysuria, No Frequency, No Incontinence, No Hematuria, No Retention, No Other Musculoskeletal: No other, No neck pain, No shoulder pain, No arm pain, No back pain, No hand pain, No leg pain, No foot pain Skin: No Rash, No Lesions, No Jaundice, No Bruising, No Other Objective Vitals Vital Signs Date Time Temp Pulse Resp B/P (MAP) Pulse Ox O2 Delivery O2 Flow Rate FiO2 11/21/24 08:53 98.0 105 16 115/56 (75) 91 98.0 11/21/24 07:06 Nasal Cannula 2.0 11/21/24 07:06 28 Intake/Output Intake and Output 11/21/24 07:00 Intake Total 900 ml Output Total 950 ml Balance -50 ml Intake Oral 600 ml IV Total 300 ml Output Urine Total 950 ml # Voids 3 Medications Current Medications Medications Dose Ordered Sig/Ren Route Start Time Stop Time Status Last Admin Dose Admin Ceftriaxone Sodium 50 ml @ 100 mls/hr DAILY@09 IV 11/19/24 09:00 11/20/24 08:01 100 MLS/HR Azithromycin 250 ml @ 125 mls/hr DAILY IV 11/19/24 10:00 11/20/24 10:23 125 MLS/HR Ondansetron HCl 4 mg Q4HP PRN IV 11/18/24 12:15 11/20/24 13:19 4 MG Acetaminophen 650 mg Q6HP PRN PO 11/18/24 12:15 11/20/24 20:44 650 MG Quetiapine Fumarate 12.5 mg QPM PO 11/18/24 18:00 11/20/24 17:51 12.5 MG Patient Own Medication 2 tab HS PO 11/18/24 22:00 Ferrous Sulfate 325 mg BIDWM PO 11/18/24 18:00 11/20/24 17:51 325 MG Docusate Sodium 100 mg BIDPRN PRN PO 11/19/24 14:30 Pantoprazole Sodium 40 mg DAILY@0600 PO 11/20/24 06:00 11/20/24 05:59 40 MG Albuterol 2.5 mg Q4HR NEB 11/20/24 14:00 11/21/24 07:06 2.5 MG Ipratropium [place] 0.5 mg Q4HR NEB 11/20/24 14:00 11/21/24 07:06 0.5 MG Laboratory Results Laboratory Tests 11/20/24 05:51 Coagulation Test 11/20/24 12:34 11/21/24 02:37 D-Dimer, Quantitative 1.67 mg/L FEU (0.0-0.49) H Prothrombin Time 13.7 sec (9.3-11.8) H Prothrombin Time INR 1.32 (0.9-1.15) H Activated Partial Thromboplast Time 33.4 SEC (24.5-34.5) Urinalysis Test 11/18/24 21:17 Urine Color Yellow (Yellow) Urine Clarity Clear (Clear) Urine pH 5.5 (5.0-9.0) Urine Specific [place] 1.020 (1.001-1.035) Urine Protein Negative (Negative) Urine Ketones Trace (Negative) Urine Blood Negative /uL (Negative) Urine Nitrite Negative (Negative) Urine Bilirubin Negative (Negative) Urine Urobilinogen Normal mg/dL (Negative) Urine Leukocyte Esterase Negative /uL (Negative) Urine RBC 1 /hpf (0 - 3) Urine WBC 1 /hpf (0 - 3) Urine Squamous Epithelial Cells Few /hpf (<5) Urine Bacteria None seen /hpf (None Seen) Urine Glucose Normal mg/dL (Normal) Labs and/or images reviewed: Labs reviewed by me, Image(s) reviewed by me Assessment/Plan Assessment/Plan Severe aortic stenosis by echocardiogram: Transfer to higher level of care for TAVR per Cardiology, discussed with the patient and he is willing for transfer Acute chest pain in the setting of severe anemia Acute hypoxic respiratory failure: Oxygen by nasal cannula albuterol Atrovent consult for Dr. Mar Acute community-acquired pneumonia: Rocephin azithromycin Ruled out congestive heart failure echocardiogram BNP cardiology consult Acute symptomatic anemia with hemoglobin 5.3, improved to 6.8 after 2 units RBC transfusion, GI consult for Dr. Molina to rule out any GI causes for anemia Depression Bipolar History of spinal fusion History of tobacco use: Counseling Flu type A positive: Tamiflu Mallika test negative D-dimer elevated 1.67 CT chest angiogram pending Time spent 65 minutes Patient is full code Orders placed for transfer to higher level of care for TAVR Plan discussed with: Patient My Orders Orders - MICHELLE ANDERSON MD Procedure Category Date Status Time Echo [place] Complete BD 11/20/24 Transmitted 11:32 * Cardiothoracic CONS 11/20/24 Transmitted Consult *Consult CONS 11/20/24 Transmitted / 11:34 Albuterol Medneb PHA 11/20/24 In Process (Ventolin Medneb) 14:00 Ipratropium Medneb PHA 11/20/24 In Process (Atrovent Medneb) 14:00 Date of Service: Nov 21, 2024 Billing Provider: MICHELLE ANDERSON MD Common Visit Codes: [id number] CARE 30-74 MIN MICHELLE ANDERSON MD Nov 21, 2024 10:12
--- NOTE | 2024-11-21 10:20 | DVHDS2 ---
Discharge Summary Date of Admission Nov 18, 2024 at 12:14 Date of Discharge: Nov 21, 2024 Admitting Diagnosis Chest pain and shortness of breath Wounds: None Labs/Diagnostic Data: Laboratory Results Test 11/21/24 05:58 11/21/24 02:37 11/20/24 16:45 11/20/24 12:34 Prothrombin Time 13.7 sec (9.3-11.8) Prothrombin Time INR 1.32 (0.9-1.15) Activated Partial Thromboplast Time 33.4 SEC (24.5-34.5) Influenza Type A Antigen Positive (Negative) Influenza Type B Antigen Negative (Negative) SARS-CoV-2 Antigen (Rapid) Negative (NEGATIVE) D-Dimer, Quantitative 1.67 mg/L FEU (0.0-0.49) Test 11/20/24 05:51 11/19/24 20:23 11/19/24 06:29 11/18/24 21:17 White Blood Count 11.7 10^3/uL (4.4-10.8) Red Blood Count 3.94 10^6/uL (4.5-5.90) Hemoglobin 9.3 g/dL (13.5-17.5) Hematocrit 30.3 % (41.0-53.0) Mean Corpuscular Volume 76.8 fL (80.0-100.0) Mean Corpuscular Hemoglobin 23.7 pg (28.0-32.0) Mean Corpuscular Hemoglobin Concent 30.8 g/dL (32.0-36.0) Red Cell Distribution Width 24.4 % (11.8-14.3) Platelet Count 237 10^3/uL (140-450) Mean Platelet Volume 8.7 fL (6.9-10.8) Neutrophils (%) (Auto) % (37.0-80.0) Lymphocytes (%) (Auto) % (10.0-50.0) Monocytes (%) (Auto) % (0.0-12.0) Basophils (%) (Auto) % (0.0-2.0) Neutrophils # (Auto) 10 ^3/uL (1.6-8.6) Lymphocytes # (Auto) 10 ^3/uL (0.4-5.4) Monocytes # (Auto) 10 ^3/uL (0-1.3) Differential Total Cells Counted 100.0 (100) Neutrophils % (Manual) 80 (37.0-80.0) Band Neutrophils % (Manual) 3 Lymphocytes % (Manual) 9 (10.0-50.0) Monocytes % (Manual) 8 (0-12) Eosinophils % (Manual) 0 (0-7) Basophils % (Manual) 0 (0.0-2.0) Metamyelocytes % (manual) 0 Myelocytes % (Manual) 0 Promyelocytes % (Manual) 0 Blast Cells % (Manual) 0 Reactive Lymphocytes 0 Platelet Estimate Adequate Hypochromasia (manual) Slight Anisocytosis (manual) Moderate Microcytosis Slight Sodium Level 139 mmol/L (136-145) Potassium Level 3.9 mmol/L (3.5-5.1) Chloride Level 105 mmol/L (98-107) Carbon Dioxide Level 25 mmol/L (20-31) Anion Gap 9 (5-15) Blood Urea Nitrogen 15 mg/dL (9-23) Creatinine 1.00 mg/dL (0.700-1.30) Glomerular Filtration Rate Calc 76 mL/min (>90) BUN/Creatinine Ratio 15.0 (10.0-20.0) Serum Glucose 102 mg/dL (74-106) Calcium Level 9.7 mg/dL (8.7-10.4) Total Bilirubin 2.6 mg/dL (0.2-1.0) Aspartate Amino Transferase (AST) 15 U/L (13-40) Alanine Aminotransferase (ALT) < 9 U/L (7-40) Alkaline Phosphatase 52 U/L (46-116) B-Type Natriuretic Peptide 370.07 pg/mL (0-100) Total Protein 6.1 g/dL (5.7-8.2) Albumin 3.8 g/dL (3.2-4.8) Stool Occult Blood Negative (Negative) Stool Occult Blood Sample #3 (Negative) Eosinophils (%) (Auto) 3.1 % (0.0-7.0) Eosinophils # (Auto) 0.2 10 ^3/uL (0-0.8) Basophils # (Auto) 0.1 10 ^3/uL (0-0.2) Nucleated Red Blood Cells 0.3 % Iron Level 334 ug/dL (65-175) Total Iron Binding Capacity 356 ug/dL (250-425) Percent Iron Saturation 93.8 % (20-55) Vitamin B12 Level 646 pg/mL (211-911) Urine Color Yellow (Yellow) Urine Clarity Clear (Clear) Urine pH 5.5 (5.0-9.0) Urine Specific [place] 1.020 (1.001-1.035) Urine Protein Negative (Negative) Urine Ketones Trace (Negative) Urine Blood Negative /uL (Negative) Urine Nitrite Negative (Negative) Urine Bilirubin Negative (Negative) Urine Urobilinogen Normal mg/dL (Negative) Urine Leukocyte Esterase Negative /uL (Negative) Urine RBC 1 /hpf (0 - 3) Urine WBC 1 /hpf (0 - 3) Urine Squamous Epithelial Cells Few /hpf (<5) Urine Bacteria None seen /hpf (None Seen) Urine Glucose Normal mg/dL (Normal) Test 11/18/24 09:40 11/18/24 07:50 Reticulocyte Count (auto) 2.33 % (0.5-1.5) Haptoglobin 96 mg/dL (34-355) Troponin I High Sensitivity 28 ng/L (</=54) Other Laboratory Tests 11/20/24 05:51 Brief Hx & Hospital Course: 79-year-old male with multiple medical problems including bipolar depression chronic current smoking history of spinal fusion congestive heart failure came in complaining of shortness of breath and chest pain. Found to have severe anemia with a hemoglobin 5.3 improved to 9.3 after 4 units blood transfusion seen by GI placed on pantoprazole and Carafate advised outpatient GI workup for endoscopy. Seen by Cardiology echocardiogram normal ejection fraction but severe aortic valve stenosis and advised transferred to higher level of care for TAVR. Patient tested positive for type a flu treated with the Tamiflu Mallika test is negative D-dimer elevated 1.67 CT chest angiogram rule out PE pending. Community-acquired pneumonia treated with Rocephin azithromycin seen by pulmonology Dr. Mar . Valve repai Patient is being transferred to higher level of care for aortic valve repair General condition very poor and prognosis poor Discussed the patient with the plan for transfer and he agrees Consults/Reason for consult GI Dr. America Molina Cardiology Dr. jeronimo Operations or Procedures Echocardiogram RBC transfusion Condition at Discharge: Fair Final Diagnosis/Problems List Severe aortic stenosis by echocardiogram: Transfer to higher level of care for TAVR per Cardiology, discussed with the patient and he is willing for transfer Acute chest pain in the setting of severe anemia Acute hypoxic respiratory failure: Oxygen by nasal cannula albuterol Atrovent consult for Dr. Mar Acute community-acquired pneumonia: Rocephin azithromycin Ruled out congestive heart failure echocardiogram BNP cardiology consult Acute symptomatic anemia with hemoglobin 5.3, improved to 6.8 after 2 units RBC transfusion, GI consult for Dr. Molina to rule out any GI causes for anemia Depression Bipolar History of spinal fusion History of tobacco use: Counseling Flu type A positive: Tamiflu Mallika test negative D-dimer elevated 1.67 CT chest angiogram pending Time spent 55 minutes Patient is full code Orders placed for transfer to higher level of care for TAVR Discharge Disposition: Acute Care Facility Discharge Instruct/Medications Diet: Cardiac 2g Na,low cholest Activity: Bed rest Follow Up/Referral: Per receiving hospital Medications: see list 39 (Time taken For discharge summary 39 minutes) Discharge Statement: "Patient was advised to return to the ER or call 911 if any headaches, dizziness, shortness of breath, chest pain, abdominal pain, bleeding, fevers, or worsening of medical condition. Patient was counseled about treatment plan, medications, possible side effects, patientverbalized understanding. All questions were answered to the best of my ability. This discharge took greater then 30 minutes in planning, reviewing documentation, counseling the patient, and discussing with other team members." ASSESSMENT ASSESSMENT Hospital Course Marginal improvement Assessment Severe aortic stenosis by echocardiogram: Transfer to higher level of care for TAVR per Cardiology, discussed with the patient and he is willing for transfer Acute chest pain in the setting of severe anemia Acute hypoxic respiratory failure: Oxygen by nasal cannula albuterol Atrovent consult for Dr. Mar Acute community-acquired pneumonia: Rocephin azithromycin Ruled out congestive heart failure echocardiogram BNP cardiology consult Acute symptomatic anemia with hemoglobin 5.3, improved to 6.8 after 2 units RBC transfusion, GI consult for Dr. Molina to rule out any GI causes for anemia Depression Bipolar History of spinal fusion History of tobacco use: Counseling Flu type A positive: Tamiflu Mallika test negative D-dimer elevated 1.67 CT chest angiogram pending Time spent 55 minutes Patient is full code Orders placed for transfer to higher level of care for TAVR Date of Service: Nov 21, 2024 Billing Provider: MICHELLE ANDERSON MD Common Visit Codes: [id number] DISCH DAY >30min MICHELLE ANDERSON MD Nov 21, 2024 10:19
[2024-11-21] MEDS: IOHEXOL 350 MG/ML 100ML IJ ONE (10:43)
--- NOTE | 2024-11-21 11:26 | DVH ---
CT CT ANGIO CHEST CONTRAST INDICATION: Elevated D-dimer Rule out pulmonary embolus EXAM DATE: 11/21/2024 10:51 AM COMPARISON: None RADIATION DOSE: CTDIvol: 8.88 mGy, DLP: 883.21 mGy*cm PROCEDURE: Helical CT angiographic images were obtained of the chest with intravenous contrast. Sagi ttal and coronal reconstructions as well as MIPS are provided. Maximum intensity projections performe d (MIPs) were performed for CTA. ADDITIONAL IMAGES / REFORMATS: None All CT scans at this medical facility are performed using dose modulation techniques as appropriate t o a performed exam including the following: Automated exposure control was utilized; adjustment of th e MA and/or KV according to patient size; and use of iterative reconstruction technique. FINDINGS: Bones: Scattered degenerative changes are noted in the visualized osseous structures. Visualized Abdomen: Normal. Chest Wall: Normal. Soft tissues: Normal. Mediastinum: Normal. Heart: Normal. Vessels: No filling defects in the visualized pulmonary arteries including the segmental and subsegme ntal pulmonary arteries. Lymph Nodes: Prominent mediastinal and perihilar lymph nodes, likely reactive. Pleura: Small bilateral pleural effusion. Airways: Normal. Lung: Bibasilar atelectasis. Other: None IMPRESSION: No pulmonary embolism in the visualized pulmonary arteries including the segmental and subsegmental p ulmonary arteries. Prominent mediastinal and perihilar lymph nodes, likely reactive. Bibasilar atelectasis. Small bilateral pleural effusion.
[2024-11-21] MEDS: OSELTAMIVIR 75 MG CAP PO SCH (11:38)
--- NOTE | 2024-11-21 12:21 | DVHPN2 ---
Consult Progress Note Subjective Other Systems: Patient denies any cardiac symptoms at time of assessment Objective vital signs Vital Sign Date Time Temp Pulse Resp B/P (MAP) Pulse Ox O2 Delivery O2 Flow Rate FiO2 11/21/24 10:12 93 18 96 11/21/24 10:06 Nasal Cannula* 2 28 11/21/24 08:53 98.0 115/56 (75) 98.0 Total Intake and Output 11/20/24 11/20/24 11/21/24 15:00 23:00 07:00 Intake Total 300 ml 600 ml 0 ml Output Total 800 ml 150 ml Balance 300 ml -200 ml -150 ml medications Current Medications Medications Dose Ordered Sig/Ren Route Start Time Stop Time Status Last Admin Dose Admin Ceftriaxone Sodium 50 ml @ 100 mls/hr DAILY@09 IV 11/19/24 09:00 11/21/24 11:29 100 MLS/HR Azithromycin 250 ml @ 125 mls/hr DAILY IV 11/19/24 10:00 11/20/24 10:23 125 MLS/HR Ondansetron HCl 4 mg Q4HP PRN IV 11/18/24 12:15 11/20/24 13:19 4 MG Acetaminophen 650 mg Q6HP PRN PO 11/18/24 12:15 11/21/24 11:38 650 MG Quetiapine Fumarate 12.5 mg QPM PO 11/18/24 18:00 11/20/24 17:51 12.5 MG Patient Own Medication 2 tab HS PO 11/18/24 22:00 Ferrous Sulfate 325 mg BIDWM PO 11/18/24 18:00 11/21/24 11:29 325 MG Docusate Sodium 100 mg BIDPRN PRN PO 11/19/24 14:30 Pantoprazole Sodium 40 mg DAILY@0600 PO 11/20/24 06:00 11/20/24 05:59 40 MG Albuterol 2.5 mg Q4HR NEB 11/20/24 14:00 11/21/24 10:06 2.5 MG Ipratropium [place] 0.5 mg Q4HR NEB 11/20/24 14:00 11/21/24 10:06 0.5 MG Oseltamivir Phosphate 75 mg Q12HR PO 11/21/24 10:13 11/25/24 22:01 11/21/24 11:38 75 MG Examination: GENERAL:Abnormal (Generalized weakness), LUNGS:Normal, CVS:Normal, NEURO:Normal laboratory and microbiology Laboratory Tests 11/20/24 05:51 Test 11/20/24 05:51 Range/Units Serum Glucose 102 74-106 mg/dL Problem List/Assessment/Plan Problem List/Assessment/Plan Chest pain in the setting of severe anemia Severe aortic stenosis Moderate to severe pulmonary hypertension Influenza type A positive Acute hypoxic respiratory failure secondary to above Arthritis Depression Bipolar History of tobacco use Obesity Plan/Recommendation (Dr. Molina): Transthoracic echocardiogram reveals EF 60%. Aortic valve area estimated 0.58 cm2 with mean gradient 72 mmHg and peak gradient 105 mmHg in keeping with severe aortic stenosis. We will recommend for the patient to be transferred to higher level of care for possible valvular workup for possible TAVR. In the meantime, continue to monitor hemoglobin and hematocrit closely and transfuse PRBC as needed. Avoid anticoagulation therapy. Thank you for allowing us to care for this patient. Please call with any questions or concerns. This medical document was created using an electronic medical record system with voice recognition software and computerized dictation system. Although this document has been carefully reviewed, there might still be some phonetic and typographical errors. Occasional wrong-word or ``sound-alike substitutions may have occurred due to the inherent limitations of voice recognition software. These areas are purely typographical due to imperfections of the software programs and do not reflect any compromise in the patient's medical care. Please read the chart carefully and recognize, using context, where these substitutions have occurred. Plan discussed with: Patient CC Plasma Assessment Blood Product Administration S: [id number] Date of Service: Nov 21, 2024 Billing Provider: RANJIT SOUZA Common Visit Codes: [id number] INP/OBS CARE(HIGH) RANJIT SOUZA Nov 21, 2024 12:21
--- NOTE | 2024-11-21 16:40 | DVHPN2 ---
Progress Note - Dictate Date Seen: Nov 21, 2024 Medical Necessity Reason Pt with a Central, PICC or Fol: No Subjective Patient seen at bedside No active GI bleeding is reported Patient is currently in isolation because of influenza A Hemoglobin is up to 9.3 after 4 units PRBC Stool for occult blood is negative vital signs Vital Sign Date Time Temp Pulse Resp B/P (MAP) Pulse Ox O2 Delivery O2 Flow Rate FiO2 11/21/24 14:35 82 18 98 11/21/24 14:29 Nasal Cannula 3.0 11/21/24 14:29 32 11/21/24 08:53 98.0 115/56 (75) 98.0 Total Intake and Output 11/20/24 11/20/24 11/21/24 15:00 23:00 07:00 Intake Total 300 ml 600 ml 0 ml Output Total 800 ml 150 ml Balance 300 ml -200 ml -150 ml medications Current Medications Medications Dose Ordered Sig/Ren Route Start Time Stop Time Status Last Admin Dose Admin Ceftriaxone Sodium 50 ml @ 100 mls/hr DAILY@09 IV 11/19/24 09:00 11/21/24 11:29 100 MLS/HR Azithromycin 250 ml @ 125 mls/hr DAILY IV 11/19/24 10:00 11/21/24 12:30 125 MLS/HR Ondansetron HCl 4 mg Q4HP PRN IV 11/18/24 12:15 11/20/24 13:19 4 MG Acetaminophen 650 mg Q6HP PRN PO 11/18/24 12:15 11/21/24 11:38 650 MG Quetiapine Fumarate 12.5 mg QPM PO 11/18/24 18:00 11/20/24 17:51 12.5 MG Patient Own Medication 2 tab HS PO 11/18/24 22:00 Ferrous Sulfate 325 mg BIDWM PO 11/18/24 18:00 11/21/24 11:29 325 MG Docusate Sodium 100 mg BIDPRN PRN PO 11/19/24 14:30 Pantoprazole Sodium 40 mg DAILY@0600 PO 11/20/24 06:00 11/20/24 05:59 40 MG Albuterol 2.5 mg Q4HR NEB 11/20/24 14:00 11/21/24 14:29 2.5 MG Ipratropium [place] 0.5 mg Q4HR NEB 11/20/24 14:00 11/21/24 14:29 0.5 MG Oseltamivir Phosphate 75 mg Q12HR PO 11/21/24 10:13 11/25/24 22:01 11/21/24 11:38 75 MG objective General: NAD, AAOX3 Chest: lung brooks clear to auscultation Heart: RRR, no murmur Abdomen: non-distended, no tenderness to palpation, +BS Rectal examination: No blood on examining finger laboratory and microbiology Laboratory Tests 11/20/24 05:51 Test 11/20/24 05:51 Range/Units Serum Glucose 102 74-106 mg/dL Problems(with codes): (1) Influenza A (2) Abdominal pain of unknown etiology (3) Severe anemia (4) Lumbosacral radiculopathy due to degenerative joint disease of spine (5) Onychomycosis (6) Rectal inflammation (7) Generalized weakness Prognosis Plan Patient appears to be stable at this time from GI point of view We can advance diet as tolerated Discharge planning is in progress He will follow up in my office as an outpatient once he recovers from his influenza to arrange outpatient elective panendoscopy Once again thank you for allowing me to participate in the care of this patient Plan discussed with: Other (Dr Mello Lares) CC Plasma Assessment Blood Product Administration S: [id number] KARSON GARZA MD Nov 21, 2024 16:40
--- NOTE | 2024-11-21 19:49 | DVHPN2 ---
Consult Progress Note Subjective Other Systems: Patient was seen and evaluated in follow up. Patient denies any cardiac symptoms. CTA Chest shows prominent mediastinal and perihilar lymph nodes, likely reactive, bibasilar atelectasis and small bilateral pleural effusion. Objective vital signs Vital Sign Date Time Temp Pulse Resp B/P (MAP) Pulse Ox O2 Delivery O2 Flow Rate FiO2 11/21/24 16:41 98.0 82 16 99/57 (71) 92 98.0 11/21/24 14:29 Nasal Cannula 3.0 11/21/24 14:29 32 Total Intake and Output 11/20/24 11/20/24 11/21/24 15:00 23:00 07:00 Intake Total 300 ml 600 ml 0 ml Output Total 800 ml 150 ml Balance 300 ml -200 ml -150 ml medications Current Medications Medications Dose Ordered Sig/Ren Route Start Time Stop Time Status Last Admin Dose Admin Ceftriaxone Sodium 50 ml @ 100 mls/hr DAILY@09 IV 11/19/24 09:00 11/21/24 11:29 100 MLS/HR Azithromycin 250 ml @ 125 mls/hr DAILY IV 11/19/24 10:00 11/21/24 12:30 125 MLS/HR Ondansetron HCl 4 mg Q4HP PRN IV 11/18/24 12:15 11/20/24 13:19 4 MG Acetaminophen 650 mg Q6HP PRN PO 11/18/24 12:15 11/21/24 11:38 650 MG Quetiapine Fumarate 12.5 mg QPM PO 11/18/24 18:00 11/20/24 17:51 12.5 MG Patient Own Medication 2 tab HS PO 11/18/24 22:00 Ferrous Sulfate 325 mg BIDWM PO 11/18/24 18:00 11/21/24 11:29 325 MG Docusate Sodium 100 mg BIDPRN PRN PO 11/19/24 14:30 Pantoprazole Sodium 40 mg DAILY@0600 PO 11/20/24 06:00 11/20/24 05:59 40 MG Albuterol 2.5 mg Q4HR NEB 11/20/24 14:00 11/21/24 14:29 2.5 MG Ipratropium [place] 0.5 mg Q4HR NEB 11/20/24 14:00 11/21/24 14:29 0.5 MG Oseltamivir Phosphate 75 mg Q12HR PO 11/21/24 10:13 11/25/24 22:01 11/21/24 11:38 75 MG Examination: GENERAL:Abnormal (Generalized weakness), HEENT:Normal, NECK:Normal, LUNGS:Normal, CVS:Normal, ABDOMEN:Normal, MSK:Normal, SKIN:Normal laboratory and microbiology Laboratory Tests 11/20/24 05:51 Test 11/20/24 05:51 Range/Units Serum Glucose 102 74-106 mg/dL Problem List/Assessment/Plan Problem List/Assessment/Plan Chest pain in the setting of severe anemia. Severe aortic stenosis. Moderate to severe pulmonary hypertension. Influenza type A positive. Acute hypoxic respiratory failure secondary to above. Arthritis. Depression. Bipolar. History of tobacco use. Obesity. Plan/Recommendation Continued all current supportive medical care. Patient has been seen by Negra Perez NP on my behalf, her and I discussed the plan with the patient. Transthoracic echocardiogram reveals EF 60%. Aortic valve area estimated 0.58 cm2 with mean gradient 72 mmHg and peak gradient 105 mmHg in keeping with severe aortic stenosis. We will recommend for the patient to be transferred to higher level of care for possible valvular workup for possible TAVR. In the meantime, continue to monitor hemoglobin and hematocrit closely and transfuse PRBC as needed. Avoid anticoagulation therapy. Additional plan as per the hospital course. Plan discussed with: Patient CC Plasma Assessment Blood Product Administration S: [id number] Date of Service: Nov 21, 2024 Billing Provider: QUIQUE CHANEY MD Cardiology Common Codes: [id number] [facility](High QUIQUE CHANEY MD Nov 21, 2024 18:22
--- NOTE | 2024-11-21 23:40 | DVHPN2 ---
Progress Note - Dictate Date Seen: Nov 21, 2024 Medical Necessity Reason Pt with a Central, PICC or Fol: No Subjective Patient seen and examined at bedside. Remains on supplemental oxygen Overnight events reviewed. vital signs Vital Sign Date Time Temp Pulse Resp B/P (MAP) Pulse Ox O2 Delivery O2 Flow Rate FiO2 11/21/24 22:45 87 18 100 11/21/24 22:39 Nasal Cannula* 3 32 11/21/24 21:00 98.3 105/51 (69) 98.3 Total Intake and Output 11/20/24 11/20/24 11/21/24 15:00 23:00 07:00 Intake Total 300 ml 600 ml 0 ml Output Total 800 ml 150 ml Balance 300 ml -200 ml -150 ml medications Current Medications Medications Dose Ordered Sig/Ren Route Start Time Stop Time Status Last Admin Dose Admin Ceftriaxone Sodium 50 ml @ 100 mls/hr DAILY@09 IV 11/19/24 09:00 11/21/24 11:29 100 MLS/HR Azithromycin 250 ml @ 125 mls/hr DAILY IV 11/19/24 10:00 11/21/24 12:30 125 MLS/HR Ondansetron HCl 4 mg Q4HP PRN IV 11/18/24 12:15 11/20/24 13:19 4 MG Acetaminophen 650 mg Q6HP PRN PO 11/18/24 12:15 11/21/24 22:44 650 MG Quetiapine Fumarate 12.5 mg QPM PO 11/18/24 18:00 11/21/24 18:50 12.5 MG Patient Own Medication 2 tab HS PO 11/18/24 22:00 Ferrous Sulfate 325 mg BIDWM PO 11/18/24 18:00 11/21/24 18:50 325 MG Docusate Sodium 100 mg BIDPRN PRN PO 11/19/24 14:30 Pantoprazole Sodium 40 mg DAILY@0600 PO 11/20/24 06:00 11/20/24 05:59 40 MG Albuterol 2.5 mg Q4HR NEB 11/20/24 14:00 11/21/24 22:39 2.5 MG Ipratropium [place] 0.5 mg Q4HR NEB 11/20/24 14:00 11/21/24 22:39 0.5 MG Oseltamivir Phosphate 75 mg Q12HR PO 11/21/24 10:13 1/14/25 22:01 11/21/24 22:31 75 MG objective Gen.: Patient lying in bed in no apparent distress. On supplemental oxygen. Head: Normocephalic, atraumatic. Eyes: EOMI/PERRLA. Ears: Normal hearing. Normal anatomy. Neck/trachea: Trachea midline, supple. Nose: Normal external anatomy. Mouth: Moist mucous membranes. Chest: Decreased air entry bilaterally. No wheezing or rhonchi. Cardiovascular: Positive S1, positive S2. Regular rate and rhythm. Abdomen: Positive bowel sounds in all 4 quadrants. Soft, non-tender, non- distended. : Deferred. Rectal: Deferred. Skin: Warm, dry. Intact. Extremities: 2+ radial pulses bilaterally. No lower extremity edema. Neuro: Awake, alert, oriented x3. No gross motor or sensory deficits. Cranial nerves II through XII intact. Gait not assessed. laboratory and microbiology Laboratory Tests 11/20/24 05:51 Test 11/20/24 05:51 Range/Units Serum Glucose 102 74-106 mg/dL Assessment/Plan Impression: Acute hypoxic respiratory failure Dependence on supplemental oxygen Influenza A Pulmonary edema Pneumonia, likely gram negative Events: Remains on supplemental oxygen, 3 LPM NC Taper O2 as tolerated Continue bronchodilators Continue antibiotics Tamiflu course Iron supplementation Monitor hemoglobin Labs and imaging reviewed. Rest of plan as noted below. Plan: Supplemental oxygen Titrate to keep O2 sats above 92%. Continue bronchodilators. Tamiflu course Continue antibiotics Monitor renal function. Monitor electrolytes. Supplement as necessary. Monitor ins and outs. DVT prophylaxis. Prognosis: Poor given patient's multiple co-morbidities. Rest of plan per hospitalist and other consultants. Thank you, Dr. Lares, for allowing me to participate in this patient's care. Further recommendations will depend on the patient's clinical course. Please do not hesitate to contact me if you have any questions or concerns. This medical document was created using an electronic medical record system with [employer] system. Although these documentations are being carefully reviewed, there may still be some phonetic and typographical changes. The errors are purely typographical, due to imperfection on the software program, and do not reflect any compromise in the patient's medical care. Plan discussed with: Patient, Other (DOT [place]) CC Plasma Assessment Blood Product Administration S: 20:35 LUZ NEWTON MD Nov 21, 2024 23:40
[2024-11-22] VITALS (20 sets, daily range): BP systolic 92–117; BP diastolic 42–57; PULSE 54–90; RESP 16–18; TEMP 97.3–99; O2SAT 90–100
[2024-11-22 07:29] LABS: Anion Gap 6 (5-15); Carbon Dioxide 28 mmol/L (20-31); Chloride 105 mmol/L (98-107); Potassium 3.9 mmol/L (3.5-5.1); Sodium 139 mmol/L (136-145)
[2024-11-22 07:35] LABS: BUN/Creatinine Ratio 18.9 (10.0-20.0); Blood Urea Nitrogen 17 mg/dL (9-23)
[2024-11-22 07:40] LABS: Glucose 73 mg/dL (74-106)
[2024-11-22 07:46] LABS: Basophils # (auto) 0 10 ^3/uL (0-0.2); Basophils % (auto) 0.6 % (0.0-2.0); Eosinophils # (auto) 0.1 10 ^3/uL (0-0.8); Eosinophils % (auto) 1.7 % (0.0-7.0); Monocytes # (auto) 0.3 10 ^3/uL (0-1.3); Neutrophils # (auto) 3.6 10 ^3/uL (1.6-8.6); White Blood Cell 4.6 10^3/uL (4.4-10.8)
[2024-11-22 07:48] LABS: Hematocrit 26.8 % (41.0-53.0); Hemoglobin 8.5 g/dL (13.5-17.5); Lymphocytes # (auto) 0.6 10 ^3/uL (0.4-5.4); Lymphocytes % (auto) 12.6 % (10.0-50.0); Mean Corpuscular Hgb Conc. 31.7 g/dL (32.0-36.0); Mean Corpuscular Volume 75.6 fL (80.0-100.0); Monocytes % (auto) 6.8 % (0.0-12.0); Neutrophils % (auto) 78.3 % (37.0-80.0); Nucleated Red Blood Cells % 0.8 %; Platelet Count (auto) 198 10^3/uL (140-450); Red Blood Cells 3.54 10^6/uL (4.5-5.90)
[2024-11-22 07:50] LABS: Red Cell Distribution Width 24.2 % (11.8-14.3)
[2024-11-22 09:37] LABS: Anisocytosis Moderate; Hypochromia Slight; Platelet Estimate Adequate; Tear Drop Cells FEW
--- NOTE | 2024-11-22 09:37 | DVHPN2 ---
Reviewed: Care Plan, H&P, Labs, Medications, Previous Orders, Radiology Changes from previous H/P or p: No Changes Eyes: No Pain, No Vision change, No Conjunctivae inflammation, No Eyelid inflammation, No Other, No Redness ENT: No Ear pain, No Ear discharge, No Nose pain, No Nose discharge, No Nose congestion, No Mouth pain, No Mouth swelling, No Throat pain, No Throat swelling, No Other Cardiovascular: No Chest Pain, No Palpitations, No Orthopnea, No Paroxysmal Noc. Dyspnea, No Edema, No Lt Headedness, No Other Respiratory: No Cough, No Dry; Shortness of breath; No SOB with excertion, No Wheezing, No Hemoptysis, No Pleuritic Pain, No Sputum, No Other Gastrointestinal: No Nausea, No Vomiting, No Abdominal Pain, No Diarrhea, No Constipation, No Melena, No Hematochezia, No Other Genitourinary: No Dysuria, No Frequency, No Incontinence, No Hematuria, No Retention, No Other Musculoskeletal: No other, No neck pain, No shoulder pain, No arm pain, No back pain, No hand pain, No leg pain, No foot pain Skin: No Rash, No Lesions, No Jaundice, No Bruising, No Other Objective Vitals Vital Signs Date Time Temp Pulse Resp B/P (MAP) Pulse Ox O2 Delivery O2 Flow Rate FiO2 11/22/24 06:16 88 16 100 11/22/24 06:10 Nasal Cannula* 3 32 11/22/24 05:00 99.0 97/43 (61) 99.0 Intake/Output Intake and Output 11/22/24 07:00 Intake Total 1100 ml Output Total 1650 ml Balance -550 ml Intake Oral 800 ml IV Total 300 ml Output Urine Total 1650 ml Medications Current Medications Medications Dose Ordered Sig/Ren Route Start Time Stop Time Status Last Admin Dose Admin Ceftriaxone Sodium 50 ml @ 100 mls/hr DAILY@09 IV 11/19/24 09:00 11/22/24 09:00 100 MLS/HR Azithromycin 250 ml @ 125 mls/hr DAILY IV 11/19/24 10:00 11/22/24 09:12 125 MLS/HR Ondansetron HCl 4 mg Q4HP PRN IV 11/18/24 12:15 11/20/24 13:19 4 MG Acetaminophen 650 mg Q6HP PRN PO 11/18/24 12:15 11/21/24 22:44 650 MG Quetiapine Fumarate 12.5 mg QPM PO 11/18/24 18:00 11/21/24 18:50 12.5 MG Patient Own Medication 2 tab HS PO 11/18/24 22:00 Ferrous Sulfate 325 mg BIDWM PO 11/18/24 18:00 11/22/24 09:00 325 MG Docusate Sodium 100 mg BIDPRN PRN PO 11/19/24 14:30 Pantoprazole Sodium 40 mg DAILY@0600 PO 11/20/24 06:00 11/22/24 06:00 40 MG Albuterol 2.5 mg Q4HR NEB 11/20/24 14:00 11/22/24 06:10 2.5 MG Ipratropium [place] 0.5 mg Q4HR NEB 11/20/24 14:00 11/22/24 06:10 0.5 MG Oseltamivir Phosphate 75 mg Q12HR PO 11/21/24 10:13 11/25/24 22:01 11/22/24 09:00 75 MG Laboratory Results Laboratory Tests 11/22/24 06:52 11/22/24 06:57 Chemistry Test 11/22/24 06:52 Calcium Level 9.0 mg/dL (8.7-10.4) Urinalysis Test 11/18/24 21:17 Urine Color Yellow (Yellow) Urine Clarity Clear (Clear) Urine pH 5.5 (5.0-9.0) Urine Specific [place] 1.020 (1.001-1.035) Urine Protein Negative (Negative) Urine Ketones Trace (Negative) Urine Blood Negative /uL (Negative) Urine Nitrite Negative (Negative) Urine Bilirubin Negative (Negative) Urine Urobilinogen Normal mg/dL (Negative) Urine Leukocyte Esterase Negative /uL (Negative) Urine RBC 1 /hpf (0 - 3) Urine WBC 1 /hpf (0 - 3) Urine Squamous Epithelial Cells Few /hpf (<5) Urine Bacteria None seen /hpf (None Seen) Urine Glucose Normal mg/dL (Normal) Labs and/or images reviewed: Labs reviewed by me, Image(s) reviewed by me Assessment/Plan Assessment/Plan Severe aortic stenosis by echocardiogram: Transfer to higher level of care for TAVR per Cardiology, discussed with the patient and he is willing for transfer Acute chest pain in the setting of severe anemia Acute hypoxic respiratory failure: Oxygen by nasal cannula albuterol Atrovent consult for Dr. Mar Acute community-acquired pneumonia: Rocephin azithromycin Ruled out congestive heart failure echocardiogram BNP cardiology consult Acute symptomatic anemia with hemoglobin 5.3, improved to 6.8 after 2 units RBC transfusion, GI consult for Dr. Molina to rule out any GI causes for anemia Depression Bipolar History of spinal fusion History of tobacco use: Counseling Flu type A positive: Tamiflu Mallika test negative D-dimer elevated 1.67 CT chest angiogram pending Time spent 65 minutes Patient is full code Orders placed for transfer to higher level of care for TAVR Examined Today: No new complaints, patient is sleeping comfortably on room air, awaiting transfer to the higher level of care. Plan discussed with: Patient My Orders Orders - MICHELLE ANDERSON MD Procedure Category Date Status Time Oseltamivir 75mg PHA 11/21/24 In Process Capsule (Tamiflu 75mg 10:[address] 11/21/24 Resulted Contrast 10:10 * Outreach Specialist CONS 11/21/24 Transmitted Consult Discharge DISCHARGE 11/21/24 Transmitted 10:12 Date of Service: Nov 22, 2024 Billing Provider: MICHELLE ANDERSON MD Common Visit Codes: [id number] INP/OBS CARE(HIGH) MICHELLE ANDERSON MD Nov 22, 2024 09:37
[2024-11-22 09:38] LABS: Ovalocytes FEW
--- NOTE | 2024-11-22 13:11 | DVHPN2 ---
Consult Progress Note Subjective Review of Systems: CVS:Abnormal (Chest pain, right-sided, reproducible, intermittent sharp, increases with deep breathing and coughing, soreness in nature), RESPIRATORY:Abnormal (Per patient Continues to have slight shortness of breath) Objective vital signs Vital Sign Date Time Temp Pulse Resp B/P (MAP) Pulse Ox O2 Delivery O2 Flow Rate FiO2 11/22/24 09:46 79 16 100 11/22/24 09:40 Nasal Cannula* 3 32 11/22/24 09:00 97.3 117/50 (72) 97.3 Total Intake and Output 11/21/24 11/21/24 11/22/24 15:00 23:00 07:00 Intake Total 300 ml 0 ml 800 ml Output Total 250 ml 1400 ml Balance 300 ml -250 ml -600 ml medications Current Medications Medications Dose Ordered Sig/Ren Route Start Time Stop Time Status Last Admin Dose Admin Ceftriaxone Sodium 50 ml @ 100 mls/hr DAILY@09 IV 11/19/24 09:00 11/22/24 09:00 100 MLS/HR Azithromycin 250 ml @ 125 mls/hr DAILY IV 11/19/24 10:00 11/22/24 09:12 125 MLS/HR Ondansetron HCl 4 mg Q4HP PRN IV 11/18/24 12:15 11/20/24 13:19 4 MG Acetaminophen 650 mg Q6HP PRN PO 11/18/24 12:15 11/22/24 12:49 650 MG Quetiapine Fumarate 12.5 mg QPM PO 11/18/24 18:00 11/21/24 18:50 12.5 MG Patient Own Medication 2 tab HS PO 11/18/24 22:00 Ferrous Sulfate 325 mg BIDWM PO 11/18/24 18:00 11/22/24 09:00 325 MG Docusate Sodium 100 mg BIDPRN PRN PO 11/19/24 14:30 Pantoprazole Sodium 40 mg DAILY@0600 PO 11/20/24 06:00 11/22/24 06:00 40 MG Albuterol 2.5 mg Q4HR NEB 11/20/24 14:00 11/22/24 09:40 2.5 MG Ipratropium [place] 0.5 mg Q4HR NEB 11/20/24 14:00 11/22/24 09:40 0.5 MG Oseltamivir Phosphate 75 mg Q12HR PO 11/21/24 10:13 11/25/24 22:01 11/22/24 09:00 75 MG Examination: CVS:Normal, CVS:Abnormal (Murmur) laboratory and microbiology Laboratory Tests 11/22/24 06:57 11/22/24 06:52 Test 11/22/24 06:52 Range/Units Serum Glucose 73 L 74-106 mg/dL Problem List/Assessment/Plan Problem List/Assessment/Plan Problem List/Assessment/Plan Chest pain in the setting of severe anemia Severe aortic stenosis Moderate to severe pulmonary hypertension Influenza type A positive Acute hypoxic respiratory failure secondary to above Arthritis Depression Bipolar History of tobacco use Obesity Elevated D-dimer Plan/Recommendation (Dr. Molina): * Transthoracic echocardiogram reveals EF 60%. Aortic valve area estimated 0.58 cm2 with mean gradient 72 mmHg and peak gradient 105 mmHg in keeping with severe aortic stenosis. * Recommend transfer to higher level of care for possible valvular workup for possible TAVR. * Continue to monitor hemoglobin and hematocrit closely and transfuse PRBC as needed. * Avoid anticoagulation therapy. * Continue on IV antibiotics, receiving Tamiflu * CT pulmonary angiogram negative for PE, positive for small bilateral pleural effusions Case Discussed with Dr Molina. Breathing stable. Pleuritic chest pain. Awaiting transfer to [facility]. Thank you for allowing us to care for this patient. Patient to be monitored on telemetry. Please call with any questions or concerns. This medical document was created using an electronic medical record system with voice recognition software and computerized dictation system. Although this document has been carefully reviewed, there might still be some phonetic and typographical errors. Occasional wrong-word or ``sound-alike substitutions may have occurred due to the inherent limitations of voice recognition software. These areas are purely typographical due to imperfections of the software programs and do not reflect any compromise in the patient's medical care. Please read the chart carefully and recognize, using context, where these substitutions have occurred. Thank you for allowing me to participate in the management of this patient. The treatment plan was discussed with and agreed upon by patient/family including requesting consultants and ordering of imaging/procedures. Plan discussed with: Patient CC Plasma Assessment Blood Product Administration S: 20:35 Date of Service: Nov 22, 2024 Billing Provider: LORENA PHILLIPS [facility] Common Visit Codes: [id number] INP/OBS CARE(HIGH) LORENA PHILLIPS AGACNP Nov 22, 2024 13:11
[2024-11-22] MEDS: DOCUSATE SOD 100 MG CAP PO PRN (18:30)
--- NOTE | 2024-11-22 19:12 | DVHPN2 ---
Progress Note - Dictate Date Seen: Nov 22, 2024 Medical Necessity Reason Pt with a Central, PICC or Fol: No Subjective Patient seen and examined at bedside. Remains on supplemental oxygen Overnight events reviewed. vital signs Vital Sign Date Time Temp Pulse Resp B/P (MAP) Pulse Ox O2 Delivery O2 Flow Rate FiO2 11/22/24 19:09 79 16 100 11/22/24 19:03 Nasal Cannula* 3 32 11/22/24 17:00 98.8 92/42 (59) 98.8 Total Intake and Output 11/21/24 11/21/24 11/22/24 15:00 23:00 07:00 Intake Total 300 ml 0 ml 800 ml Output Total 250 ml 1400 ml Balance 300 ml -250 ml -600 ml medications Current Medications Medications Dose Ordered Sig/Ren Route Start Time Stop Time Status Last Admin Dose Admin Ceftriaxone Sodium 50 ml @ 100 mls/hr DAILY@09 IV 11/19/24 09:00 11/22/24 09:00 100 MLS/HR Azithromycin 250 ml @ 125 mls/hr DAILY IV 11/19/24 10:00 11/22/24 09:12 125 MLS/HR Ondansetron HCl 4 mg Q4HP PRN IV 11/18/24 12:15 11/20/24 13:19 4 MG Acetaminophen 650 mg Q6HP PRN PO 11/18/24 12:15 11/22/24 12:49 650 MG Quetiapine Fumarate 12.5 mg QPM PO 11/18/24 18:00 11/22/24 17:05 12.5 MG Patient Own Medication 2 tab HS PO 11/18/24 22:00 Ferrous Sulfate 325 mg BIDWM PO 11/18/24 18:00 11/22/24 17:04 325 MG Docusate Sodium 100 mg BIDPRN PRN PO 11/19/24 14:30 11/22/24 18:30 100 MG Pantoprazole Sodium 40 mg DAILY@0600 PO 11/20/24 06:00 11/22/24 06:00 40 MG Albuterol 2.5 mg Q4HR NEB 11/20/24 14:00 11/22/24 19:03 2.5 MG Ipratropium [place] 0.5 mg Q4HR NEB 11/20/24 14:00 11/22/24 19:03 0.5 MG Oseltamivir Phosphate 75 mg Q12HR PO 11/21/24 10:13 11/25/24 22:01 11/22/24 09:00 75 MG objective Gen.: Patient lying in bed in no apparent distress. On supplemental oxygen. Head: Normocephalic, atraumatic. Eyes: EOMI/PERRLA. Ears: Normal hearing. Normal anatomy. Neck/trachea: Trachea midline, supple. Nose: Normal external anatomy. Mouth: Moist mucous membranes. Chest: Decreased air entry bilaterally. No wheezing or rhonchi. Cardiovascular: Positive S1, positive S2. Regular rate and rhythm. Abdomen: Positive bowel sounds in all 4 quadrants. Soft, non-tender, non- distended. : Deferred. Rectal: Deferred. Skin: Warm, dry. Intact. Extremities: 2+ radial pulses bilaterally. No lower extremity edema. Neuro: Awake, alert, oriented x3. No gross motor or sensory deficits. Cranial nerves II through XII intact. Gait not assessed. laboratory and microbiology Laboratory Tests 11/22/24 06:57 11/22/24 06:52 Test 11/22/24 06:52 Range/Units Serum Glucose 73 L 74-106 mg/dL Assessment/Plan Impression: Acute hypoxic respiratory failure Dependence on supplemental oxygen Influenza A Pulmonary edema Pneumonia, likely gram negative Events: Remains on supplemental oxygen, 3 LPM NC Taper O2 as tolerated Plan for HLOC for mitral valve. Continue bronchodilators Continue antibiotics Tamiflu course Iron supplementation Monitor hemoglobin Cardiology recs appreciated GI prophylaxis w/ Protonix Labs and imaging reviewed. Rest of plan as noted below. Plan: Supplemental oxygen Titrate to keep O2 sats above 92%. Continue bronchodilators. Tamiflu course Continue antibiotics Monitor renal function. Monitor electrolytes. Supplement as necessary. Monitor ins and outs. DVT prophylaxis. Prognosis: Poor given patient's multiple co-morbidities. Rest of plan per hospitalist and other consultants. Thank you, Dr. Lares, for allowing me to participate in this patient's care. Further recommendations will depend on the patient's clinical course. Please do not hesitate to contact me if you have any questions or concerns. This medical document was created using an electronic medical record system with Smarterphoneation system. Although these documentations are being carefully reviewed, there may still be some phonetic and typographical changes. The errors are purely typographical, due to imperfection on the software program, and do not reflect any compromise in the patient's medical care. Plan discussed with: Patient, Other (DOT Mcpherson) CC Plasma Assessment Blood Product Administration S: 20:35 LUZ NEWTON MD Nov 22, 2024 19:12
--- NOTE | 2024-11-22 19:52 | DVHPN2 ---
Consult Progress Note Subjective Review of Systems: CVS:Abnormal Other Systems: Patient was seen and evaluated in follow up. Patient is complaining of right-sided, reproducible, intermittent sharp, chest pain, increases with deep breathing and coughing, soreness in nature and slight SOB. HLOC placement is pending. HGB 8.5, HCT 26.8, GLUC 73. Objective vital signs Vital Sign Date Time Temp Pulse Resp B/P (MAP) Pulse Ox O2 Delivery O2 Flow Rate FiO2 11/22/24 17:00 98.8 82 18 92/42 (59) 92 98.8 11/22/24 13:59 Nasal Cannula* 3 32 Total Intake and Output 11/21/24 11/21/24 11/22/24 15:00 23:00 07:00 Intake Total 300 ml 0 ml 800 ml Output Total 250 ml 1400 ml Balance 300 ml -250 ml -600 ml medications Current Medications Medications Dose Ordered Sig/Ren Route Start Time Stop Time Status Last Admin Dose Admin Ceftriaxone Sodium 50 ml @ 100 mls/hr DAILY@09 IV 11/19/24 09:00 11/22/24 09:00 100 MLS/HR Azithromycin 250 ml @ 125 mls/hr DAILY IV 11/19/24 10:00 11/22/24 09:12 125 MLS/HR Ondansetron HCl 4 mg Q4HP PRN IV 11/18/24 12:15 11/20/24 13:19 4 MG Acetaminophen 650 mg Q6HP PRN PO 11/18/24 12:15 11/22/24 12:49 650 MG Quetiapine Fumarate 12.5 mg QPM PO 11/18/24 18:00 11/22/24 17:05 12.5 MG Patient Own Medication 2 tab HS PO 11/18/24 22:00 Ferrous Sulfate 325 mg BIDWM PO 11/18/24 18:00 11/22/24 17:04 325 MG Docusate Sodium 100 mg BIDPRN PRN PO 11/19/24 14:30 Pantoprazole Sodium 40 mg DAILY@0600 PO 11/20/24 06:00 11/22/24 06:00 40 MG Albuterol 2.5 mg Q4HR NEB 11/20/24 14:00 11/22/24 13:59 2.5 MG Ipratropium [place] 0.5 mg Q4HR NEB 11/20/24 14:00 11/22/24 13:59 0.5 MG Oseltamivir Phosphate 75 mg Q12HR PO 11/21/24 10:13 11/25/24 22:01 11/22/24 09:00 75 MG Examination: GENERAL:Normal, HEENT:Normal, NECK:Normal, LUNGS:Normal, CVS:Abnormal (murmur ), ABDOMEN:Normal, MSK:Normal, SKIN:Normal, NEURO:Normal laboratory and microbiology Laboratory Tests 11/22/24 06:57 11/22/24 06:52 Test 11/22/24 06:52 Range/Units Serum Glucose 73 L 74-106 mg/dL Problem List/Assessment/Plan Problem List/Assessment/Plan Chest pain in the setting of severe anemia. Severe aortic stenosis. Moderate to severe pulmonary hypertension. Influenza type A positive. Acute hypoxic respiratory failure secondary to above. Arthritis. Depression. Bipolar. History of tobacco use. Obesity. Plan/Recommendation Continued all current supportive medical care. Patient has been seen by David Hampton RAMP MANAGER him and I discussed the plan with the patient. Transthoracic echocardiogram reveals EF 60%. Aortic valve area estimated 0.58 cm2 with mean gradient 72 mmHg and peak gradient 105 mmHg in keeping with severe aortic stenosis. Recommend transfer to higher level of care for possible valvular workup for possible TAVR. Continue to monitor hemoglobin and hematocrit closely and transfuse PRBC as needed. Avoid anticoagulation therapy. Continue on IV antibiotics, receiving Tamiflu. CT pulmonary angiogram negative for PE, positive for small bilateral pleural effusions. Additional plan as per the hospital course. Plan discussed with: Patient CC Plasma Assessment Blood Product Administration S: 20:35 Date of Service: Nov 22, 2024 Billing Provider: QUIQUE CHANEY MD Cardiology Common Codes: [id number] [facility](High QUIQUE CHANEY MD Nov 22, 2024 18:24
--- NOTE | 2024-11-22 21:59 | DVHPN2 ---
Progress Note - Dictate Date Seen: Nov 22, 2024 Medical Necessity Reason Pt with a Central, PICC or Fol: No Subjective No active GI bleeding is reported Patient is currently in isolation because of influenza A Hemoglobin is up to 8.5 after 4 units PRBC Stool for occult blood is negative vital signs Vital Sign Date Time Temp Pulse Resp B/P (MAP) Pulse Ox O2 Delivery O2 Flow Rate FiO2 11/22/24 20:35 98.4 70 18 105/57 (73) 98 98.4 11/22/24 19:03 Nasal Cannula* 3 32 Total Intake and Output 11/21/24 11/21/24 11/22/24 15:00 23:00 07:00 Intake Total 300 ml 0 ml 800 ml Output Total 250 ml 1400 ml Balance 300 ml -250 ml -600 ml medications Current Medications Medications Dose Ordered Sig/Ren Route Start Time Stop Time Status Last Admin Dose Admin Ceftriaxone Sodium 50 ml @ 100 mls/hr DAILY@09 IV 11/19/24 09:00 11/22/24 09:00 100 MLS/HR Azithromycin 250 ml @ 125 mls/hr DAILY IV 11/19/24 10:00 11/22/24 09:12 125 MLS/HR Ondansetron HCl 4 mg Q4HP PRN IV 11/18/24 12:15 11/20/24 13:19 4 MG Acetaminophen 650 mg Q6HP PRN PO 11/18/24 12:15 11/22/24 21:43 650 MG Quetiapine Fumarate 12.5 mg QPM PO 11/18/24 18:00 11/22/24 17:05 12.5 MG Patient Own Medication 2 tab HS PO 11/18/24 22:00 Ferrous Sulfate 325 mg BIDWM PO 11/18/24 18:00 11/22/24 17:04 325 MG Docusate Sodium 100 mg BIDPRN PRN PO 11/19/24 14:30 11/22/24 18:30 100 MG Pantoprazole Sodium 40 mg DAILY@0600 PO 11/20/24 06:00 11/22/24 06:00 40 MG Albuterol 2.5 mg Q4HR NEB 11/20/24 14:00 11/22/24 19:03 2.5 MG Ipratropium [place] 0.5 mg Q4HR NEB 11/20/24 14:00 11/22/24 19:03 0.5 MG Oseltamivir Phosphate 75 mg Q12HR PO 11/21/24 10:13 11/25/24 22:01 11/22/24 21:43 75 MG objective General: NAD, AAOX3 Chest: lung brooks clear to auscultation Heart: RRR, no murmur Abdomen: non-distended, no tenderness to palpation, +BS Rectal examination: No blood on examining finger laboratory and microbiology Laboratory Tests 11/22/24 06:57 11/22/24 06:52 Test 11/22/24 06:52 Range/Units Serum Glucose 73 L 74-106 mg/dL Problems(with codes): (1) Abdominal pain of unknown etiology (2) Influenza A (3) Generalized weakness (4) Severe anemia Prognosis Plan Patient appears to be stable at this time from GI point of view We can advance diet as tolerated Protonix 40 mg p.o. daily Hepatitis profile pending Discharge planning is in progress possible transfer to higher level of care for severe aortic stenosis possible TVAR He will follow up in my office as an outpatient once he recovers from his influenza to arrange outpatient elective panendoscopy Once again thank you for allowing me to participate in the care of this patient Plan discussed with: Other (Maria G Rodríguez) CC Plasma Assessment Blood Product Administration S: 20:35 KARSON GARZA MD Nov 22, 2024 21:59
[2024-11-23] VITALS (24 sets, daily range): BP systolic 98–122; BP diastolic 49–72; PULSE 80–99; RESP 16–20; TEMP 97.8–98.4; O2SAT 92–100
--- NOTE | 2024-11-23 10:25 | DVHPN2 ---
Reviewed: Care Plan, H&P, Labs, Medications, Previous Orders, Radiology Changes from previous H/P or p: No Changes Eyes: No Pain, No Vision change, No Conjunctivae inflammation, No Eyelid inflammation, No Other, No Redness ENT: No Ear pain, No Ear discharge, No Nose pain, No Nose discharge, No Nose congestion, No Mouth pain, No Mouth swelling, No Throat pain, No Throat swelling, No Other Cardiovascular: No Chest Pain, No Palpitations, No Orthopnea, No Paroxysmal Noc. Dyspnea, No Edema, No Lt Headedness, No Other Respiratory: No Cough, No Dry; Shortness of breath; No SOB with excertion, No Wheezing, No Hemoptysis, No Pleuritic Pain, No Sputum, No Other Gastrointestinal: No Nausea, No Vomiting, No Abdominal Pain, No Diarrhea, No Constipation, No Melena, No Hematochezia, No Other Genitourinary: No Dysuria, No Frequency, No Incontinence, No Hematuria, No Retention, No Other Musculoskeletal: No other, No neck pain, No shoulder pain, No arm pain, No back pain, No hand pain, No leg pain, No foot pain Skin: No Rash, No Lesions, No Jaundice, No Bruising, No Other Objective Vitals Vital Signs Date Time Temp Pulse Resp B/P (MAP) Pulse Ox O2 Delivery O2 Flow Rate FiO2 11/23/24 10:08 86 20 94 11/23/24 08:46 98.2 98/52 (67) 98.2 11/23/24 02:40 Nasal Cannula 3.0 11/23/24 02:40 32 Intake/Output Intake and Output 11/23/24 07:00 Intake Total 620 ml Output Total 1120 ml Balance -500 ml Intake Oral 620 ml Output Urine Total 1120 ml Medications Current Medications Medications Dose Ordered Sig/Ren Route Start Time Stop Time Status Last Admin Dose Admin Ceftriaxone Sodium 50 ml @ 100 mls/hr DAILY@09 IV 11/19/24 09:00 11/22/24 09:00 100 MLS/HR Azithromycin 250 ml @ 125 mls/hr DAILY IV 11/19/24 10:00 11/22/24 09:12 125 MLS/HR Ondansetron HCl 4 mg Q4HP PRN IV 11/18/24 12:15 11/20/24 13:19 4 MG Acetaminophen 650 mg Q6HP PRN PO 11/18/24 12:15 11/22/24 21:43 650 MG Quetiapine Fumarate 12.5 mg QPM PO 11/18/24 18:00 11/22/24 17:05 12.5 MG Patient Own Medication 2 tab HS PO 11/18/24 22:00 Ferrous Sulfate 325 mg BIDWM PO 11/18/24 18:00 11/22/24 17:04 325 MG Docusate Sodium 100 mg BIDPRN PRN PO 11/19/24 14:30 11/23/24 06:23 100 MG Pantoprazole Sodium 40 mg DAILY@0600 PO 11/20/24 06:00 11/23/24 06:22 40 MG Albuterol 2.5 mg Q4HR NEB 11/20/24 14:00 11/23/24 10:08 2.5 MG Ipratropium [place] 0.5 mg Q4HR NEB 11/20/24 14:00 11/23/24 10:08 0.5 MG Oseltamivir Phosphate 75 mg Q12HR PO 11/21/24 10:13 11/25/24 22:01 11/22/24 21:43 75 MG Laboratory Results Laboratory Tests 11/22/24 06:52 11/22/24 06:57 Urinalysis Test 11/18/24 21:17 Urine Color Yellow (Yellow) Urine Clarity Clear (Clear) Urine pH 5.5 (5.0-9.0) Urine Specific [place] 1.020 (1.001-1.035) Urine Protein Negative (Negative) Urine Ketones Trace (Negative) Urine Blood Negative /uL (Negative) Urine Nitrite Negative (Negative) Urine Bilirubin Negative (Negative) Urine Urobilinogen Normal mg/dL (Negative) Urine Leukocyte Esterase Negative /uL (Negative) Urine RBC 1 /hpf (0 - 3) Urine WBC 1 /hpf (0 - 3) Urine Squamous Epithelial Cells Few /hpf (<5) Urine Bacteria None seen /hpf (None Seen) Urine Glucose Normal mg/dL (Normal) Labs and/or images reviewed: Labs reviewed by me, Image(s) reviewed by me Assessment/Plan Assessment/Plan Severe aortic stenosis by echocardiogram: Transfer to higher level of care for TAVR per Cardiology, discussed with the patient and he is willing for transfer Acute chest pain in the setting of severe anemia Acute hypoxic respiratory failure: Oxygen by nasal cannula albuterol Atrovent consult for Dr. Mar Acute community-acquired pneumonia: Rocephin azithromycin Ruled out congestive heart failure echocardiogram BNP cardiology consult Acute symptomatic anemia with hemoglobin 5.3, improved to 6.8 after 2 units RBC transfusion, GI consult for Dr. Molina to rule out any GI causes for anemia Depression Bipolar History of spinal fusion History of tobacco use: Counseling Flu type A positive: Tamiflu Mallika test negative D-dimer elevated 1.67 CT chest angiogram pending Time spent 65 minutes Patient is full code Orders placed for transfer to higher level of care for TAVR Examined Today: No new complaints, Awaiting Transfer to higher level of care Plan discussed with: Patient My Orders Orders - MICHELLE ANDERSON MD Procedure Category Date Status Time * Specimen Preparation Assistant CONS 11/23/24 Transmitted Consult Date of Service: Nov 23, 2024 Billing Provider: MICHELLE ANDERSON MD Common Visit Codes: [id number] INP/OBS CARE(HIGH) MICHELLE ANDERSON MD Nov 23, 2024 10:25
[2024-11-23] MEDS: HYDROcodone-ACET 5/325MG TAB PO PRN (10:53)
--- NOTE | 2024-11-23 14:51 | DVHPN2 ---
Consult Progress Note Subjective Patient reports: No new complaints Objective vital signs Vital Sign Date Time Temp Pulse Resp B/P (MAP) Pulse Ox O2 Delivery O2 Flow Rate FiO2 11/23/24 14:12 89 20 98 11/23/24 14:04 Nasal Cannula* 3 32 11/23/24 12:41 97.9 110/53 (72) 97.9 Total Intake and Output 11/22/24 11/22/24 11/23/24 15:00 23:00 07:00 Intake Total 400 ml 220 ml Output Total 300 ml 820 ml Balance 100 ml -600 ml medications Current Medications Medications Dose Ordered Sig/Ren Route Start Time Stop Time Status Last Admin Dose Admin Ceftriaxone Sodium 50 ml @ 100 mls/hr DAILY@09 IV 11/19/24 09:00 11/23/24 10:27 100 MLS/HR Azithromycin 250 ml @ 125 mls/hr DAILY IV 11/19/24 10:00 11/23/24 13:17 125 MLS/HR Ondansetron HCl 4 mg Q4HP PRN IV 11/18/24 12:15 11/20/24 13:19 4 MG Acetaminophen 650 mg Q6HP PRN PO 11/18/24 12:15 11/22/24 21:43 650 MG Quetiapine Fumarate 12.5 mg QPM PO 11/18/24 18:00 11/22/24 17:05 12.5 MG Patient Own Medication 2 tab HS PO 11/18/24 22:00 Ferrous Sulfate 325 mg BIDWM PO 11/18/24 18:00 11/23/24 10:13 325 MG Docusate Sodium 100 mg BIDPRN PRN PO 11/19/24 14:30 11/23/24 06:23 100 MG Pantoprazole Sodium 40 mg DAILY@0600 PO 11/20/24 06:00 11/23/24 06:22 40 MG Albuterol 2.5 mg Q4HR NEB 11/20/24 14:00 11/23/24 14:02 2.5 MG Ipratropium [place] 0.5 mg Q4HR NEB 11/20/24 14:00 11/23/24 14:02 0.5 MG Oseltamivir Phosphate 75 mg Q12HR PO 11/21/24 10:13 11/25/24 22:01 11/23/24 10:13 75 MG Acetaminophen/ Hydrocodone Bitart 1 tab Q4HPRN PRN PO 11/23/24 10:30 11/23/24 10:53 1 TAB Examination: LUNGS:Abnormal (3 L NC), Any Other System: (Telemetry consistent with sinus rhythm at 81 beats per minute.) laboratory and microbiology Laboratory Tests 11/22/24 06:57 11/22/24 06:52 Test 11/22/24 06:52 Range/Units Serum Glucose 73 L 74-106 mg/dL Problem List/Assessment/Plan Problem List/Assessment/Plan Problem List/Assessment/Plan Chest pain in the setting of severe anemia Severe aortic stenosis Moderate to severe pulmonary hypertension Influenza type A positive Acute hypoxic respiratory failure secondary to above Arthritis Depression Bipolar History of tobacco use Obesity Elevated D-dimer Plan/Recommendation (Dr. Molina): * Transthoracic echocardiogram reveals EF 60%. Aortic valve area estimated 0.58 cm2 with mean gradient 72 mmHg and peak gradient 105 mmHg in keeping with severe aortic stenosis. * Recommend transfer to higher level of care for possible valvular workup for possible TAVR. * Continue to monitor hemoglobin and hematocrit closely and transfuse PRBC as needed. * Avoid anticoagulation therapy. * Continue on IV antibiotics, receiving Tamiflu * CT pulmonary angiogram negative for PE, positive for small bilateral pleural effusions Seen and assessed at bedside. Denies any active or overnight cardiac symptoms. Telemetry consistent with sinus rhythm 81 beats per minute, no events noted on tele review. Breathing stable on 3 L NC. Awaiting higher level of care transfer. Case Discussed with Dr Molina. Breathing stable. Pleuritic chest pain. Awaiting transfer to [facility]. Thank you for allowing us to care for this patient. Patient to be monitored on telemetry. Please call with any questions or concerns. This medical document was created using an electronic medical record system with voice recognition software and computerized dictation system. Although this document has been carefully reviewed, there might still be some phonetic and typographical errors. Occasional wrong-word or ``sound-alike substitutions may have occurred due to the inherent limitations of voice recognition software. These areas are purely typographical due to imperfections of the software programs and do not reflect any compromise in the patient's medical care. Please read the chart carefully and recognize, using context, where these substitutions have occurred. Thank you for allowing me to participate in the management of this patient. The treatment plan was discussed with and agreed upon by patient/family including requesting consultants and ordering of imaging/procedures. Plan discussed with: Patient CC Plasma Assessment Blood Product Administration S: 20:35 Date of Service: Nov 23, 2024 Billing Provider: LORENA PHILLIPS Common Visit Codes: [id number] INP/OBS CARE(HIGH) LORENA PHILLIPS Nov 23, 2024 14:51
--- NOTE | 2024-11-23 22:53 | DVHPN2 ---
Consult Progress Note Subjective Other Systems: Patient was seen and evaluated in follow up. Patient has no complaints. Patient is on 3 LPM NC. Telemetry reviewed. Telemetry consistent with sinus rhythm at 81 beats per minute. Objective vital signs Vital Sign Date Time Temp Pulse Resp B/P (MAP) Pulse Ox O2 Delivery O2 Flow Rate FiO2 11/23/24 16:43 98.2 84 18 122/61 (81) 96 98.2 11/23/24 14:04 Nasal Cannula* 3 32 Total Intake and Output 11/22/24 11/22/24 11/23/24 15:00 23:00 07:00 Intake Total 400 ml 220 ml Output Total 300 ml 820 ml Balance 100 ml -600 ml medications Current Medications Medications Dose Ordered Sig/Ren Route Start Time Stop Time Status Last Admin Dose Admin Ceftriaxone Sodium 50 ml @ 100 mls/hr DAILY@09 IV 11/19/24 09:00 11/23/24 10:27 100 MLS/HR Azithromycin 250 ml @ 125 mls/hr DAILY IV 11/19/24 10:00 11/23/24 13:17 125 MLS/HR Ondansetron HCl 4 mg Q4HP PRN IV 11/18/24 12:15 11/20/24 13:19 4 MG Acetaminophen 650 mg Q6HP PRN PO 11/18/24 12:15 11/22/24 21:43 650 MG Quetiapine Fumarate 12.5 mg QPM PO 11/18/24 18:00 11/23/24 17:03 12.5 MG Patient Own Medication 2 tab HS PO 11/18/24 22:00 Ferrous Sulfate 325 mg BIDWM PO 11/18/24 18:00 11/23/24 17:03 325 MG Docusate Sodium 100 mg BIDPRN PRN PO 11/19/24 14:30 11/23/24 06:23 100 MG Pantoprazole Sodium 40 mg DAILY@0600 PO 11/20/24 06:00 11/23/24 06:22 40 MG Albuterol 2.5 mg Q4HR NEB 11/20/24 14:00 11/23/24 14:02 2.5 MG Ipratropium [place] 0.5 mg Q4HR NEB 11/20/24 14:00 11/23/24 14:02 0.5 MG Oseltamivir Phosphate 75 mg Q12HR PO 11/21/24 10:13 11/25/24 22:01 11/23/24 10:13 75 MG Acetaminophen/ Hydrocodone Bitart 1 tab Q4HPRN PRN PO 11/23/24 10:30 11/23/24 10:53 1 TAB Examination: GENERAL:Normal, HEENT:Normal, NECK:Normal, LUNGS:Normal, CVS:Normal, ABDOMEN:Normal, MSK:Normal, SKIN:Normal, NEURO:Normal laboratory and microbiology Laboratory Tests 11/22/24 06:57 11/22/24 06:52 Test 11/22/24 06:52 Range/Units Serum Glucose 73 L 74-106 mg/dL Problem List/Assessment/Plan Problem List/Assessment/Plan Chest pain in the setting of severe anemia. Severe aortic stenosis. Moderate to severe pulmonary hypertension. Influenza type A positive. Acute hypoxic respiratory failure secondary to above. Arthritis. Depression. Bipolar. History of tobacco use. Obesity. Elevated D-dimer. Plan/Recommendation Continued all current supportive medical care. Patient has been seen by David Hampton ASSESSMENT SPECIALIST him and I discussed the plan with the patient. Transthoracic echocardiogram reveals EF 60%. Aortic valve area estimated 0.58 cm2 with mean gradient 72 mmHg and peak gradient 105 mmHg in keeping with severe aortic stenosis. Recommend transfer to higher level of care for possible valvular workup for possible TAVR. Continue to monitor hemoglobin and hematocrit closely and transfuse PRBC as needed. Avoid anticoagulation therapy. Continue on IV antibiotics, receiving Tamiflu. CT pulmonary angiogram negative for PE, positive for small bilateral pleural effusions. Additional plan as per the hospital course. Plan discussed with: Patient CC Plasma Assessment Blood Product Administration S: 20:35 Date of Service: Nov 23, 2024 Billing Provider: QUIQUE CHANEY MD Cardiology Common Codes: [id number] [facility] CARE(High QUIQUE CHANEY MD Nov 23, 2024 18:31
--- NOTE | 2024-11-23 23:53 | DVHPN2 ---
Progress Note - Dictate Date Seen: Nov 23, 2024 Medical Necessity Reason Pt with a Central, PICC or Fol: No Subjective Patient seen and examined at bedside. Remains on supplemental oxygen Overnight events reviewed. vital signs Vital Sign Date Time Temp Pulse Resp B/P (MAP) Pulse Ox O2 Delivery O2 Flow Rate FiO2 11/23/24 22:40 91 20 100 11/23/24 21:00 98.2 106/56 (73) 98.2 11/23/24 18:57 Nasal Cannula 3.0 11/23/24 18:57 32 Total Intake and Output 11/22/24 11/22/24 11/23/24 15:00 23:00 07:00 Intake Total 400 ml 220 ml Output Total 300 ml 820 ml Balance 100 ml -600 ml medications Current Medications Medications Dose Ordered Sig/Ren Route Start Time Stop Time Status Last Admin Dose Admin Ceftriaxone Sodium 50 ml @ 100 mls/hr DAILY@09 IV 11/19/24 09:00 11/23/24 10:27 100 MLS/HR Azithromycin 250 ml @ 125 mls/hr DAILY IV 11/19/24 10:00 11/23/24 13:17 125 MLS/HR Ondansetron HCl 4 mg Q4HP PRN IV 11/18/24 12:15 11/20/24 13:19 4 MG Acetaminophen 650 mg Q6HP PRN PO 11/18/24 12:15 11/22/24 21:43 650 MG Quetiapine Fumarate 12.5 mg QPM PO 11/18/24 18:00 11/23/24 17:03 12.5 MG Patient Own Medication 2 tab HS PO 11/18/24 22:00 Ferrous Sulfate 325 mg BIDWM PO 11/18/24 18:00 11/23/24 17:03 325 MG Docusate Sodium 100 mg BIDPRN PRN PO 11/19/24 14:30 11/23/24 06:23 100 MG Pantoprazole Sodium 40 mg DAILY@0600 PO 11/20/24 06:00 11/23/24 06:22 40 MG Albuterol 2.5 mg Q4HR NEB 11/20/24 14:00 11/23/24 22:34 2.5 MG Ipratropium [place] 0.5 mg Q4HR NEB 11/20/24 14:00 11/23/24 22:34 0.5 MG Oseltamivir Phosphate 75 mg Q12HR PO 11/21/24 10:13 11/25/24 22:01 11/23/24 21:53 75 MG Acetaminophen/ Hydrocodone Bitart 1 tab Q4HPRN PRN PO 11/23/24 10:30 11/23/24 10:53 1 TAB objective Gen.: Patient lying in bed in no apparent distress. On supplemental oxygen. Head: Normocephalic, atraumatic. Eyes: EOMI/PERRLA. Ears: Normal hearing. Normal anatomy. Neck/trachea: Trachea midline, supple. Nose: Normal external anatomy. Mouth: Moist mucous membranes. Chest: Decreased air entry bilaterally. No wheezing or rhonchi. Cardiovascular: Positive S1, positive S2. Regular rate and rhythm. Abdomen: Positive bowel sounds in all 4 quadrants. Soft, non-tender, non- distended. : Deferred. Rectal: Deferred. Skin: Warm, dry. Intact. Extremities: 2+ radial pulses bilaterally. No lower extremity edema. Neuro: Awake, alert, oriented x3. No gross motor or sensory deficits. Cranial nerves II through XII intact. Gait not assessed. laboratory and microbiology Laboratory Tests 11/22/24 06:57 11/22/24 06:52 Test 11/22/24 06:52 Range/Units Serum Glucose 73 L 74-106 mg/dL Assessment/Plan Impression: Acute hypoxic respiratory failure Dependence on supplemental oxygen Influenza A Pulmonary edema Pneumonia, likely gram negative Events: Remains on supplemental oxygen, 3 LPM NC Taper O2 as tolerated Awaiting HLOC for mitral valve. Continue bronchodilators Continue antibiotics Tamiflu course Iron supplementation Monitor hemoglobin Cardiology recs appreciated GI prophylaxis w/ Protonix Labs and imaging reviewed. Rest of plan as noted below. Plan: Supplemental oxygen Titrate to keep O2 sats above 92%. Continue bronchodilators. Tamiflu course Continue antibiotics Monitor renal function. Monitor electrolytes. Supplement as necessary. Monitor ins and outs. DVT prophylaxis. Prognosis: Poor given patient's multiple co-morbidities. Rest of plan per hospitalist and other consultants. Thank you, Dr. Lares, for allowing me to participate in this patient's care. Further recommendations will depend on the patient's clinical course. Please do not hesitate to contact me if you have any questions or concerns. This medical document was created using an electronic medical record system with Dragon computerized dictation system. Although these documentations are being carefully reviewed, there may still be some phonetic and typographical changes. The errors are purely typographical, due to imperfection on the software program, and do not reflect any compromise in the patient's medical care. Plan discussed with: Patient, Other (DOT Tena) CC Plasma Assessment Blood Product Administration S: 20:35 LUZ NEWTON MD Nov 23, 2024 23:53
[2024-11-24] VITALS (21 sets, daily range): BP systolic 102–110; BP diastolic 36–67; PULSE 70–96; RESP 16–20; TEMP 97.9–99.3; O2SAT 91–100
[2024-11-24 09:03] LABS: Hepatitis B Core Total AB Negative (Negative)
[2024-11-24 09:21] LABS: Hepatitis A Total Antibody Positive (Negative); Hepatitis B Surface Antibody Negative (Negative); Hepatitis B Surface Antigen Negative (Negative)
[2024-11-24 09:22] LABS: Hepatitis C Antibody Negative (Negative)
--- NOTE | 2024-11-24 10:53 | DVHPN2 ---
Reviewed: Care Plan, H&P, Labs, Medications, Previous Orders, Radiology Changes from previous H/P or p: No Changes Eyes: No Pain, No Vision change, No Conjunctivae inflammation, No Eyelid inflammation, No Other, No Redness ENT: No Ear pain, No Ear discharge, No Nose pain, No Nose discharge, No Nose congestion, No Mouth pain, No Mouth swelling, No Throat pain, No Throat swelling, No Other Cardiovascular: No Chest Pain, No Palpitations, No Orthopnea, No Paroxysmal Noc. Dyspnea, No Edema, No Lt Headedness, No Other Respiratory: No Cough, No Dry; Shortness of breath; No SOB with excertion, No Wheezing, No Hemoptysis, No Pleuritic Pain, No Sputum, No Other Gastrointestinal: No Nausea, No Vomiting, No Abdominal Pain, No Diarrhea, No Constipation, No Melena, No Hematochezia, No Other Genitourinary: No Dysuria, No Frequency, No Incontinence, No Hematuria, No Retention, No Other Musculoskeletal: No other, No neck pain, No shoulder pain, No arm pain, No back pain, No hand pain, No leg pain, No foot pain Skin: No Rash, No Lesions, No Jaundice, No Bruising, No Other Objective Vitals Vital Signs Date Time Temp Pulse Resp B/P (MAP) Pulse Ox O2 Delivery O2 Flow Rate FiO2 11/24/24 08:42 98.6 90 19 108/36 (60) 91 98.6 11/24/24 08:00 Nasal Cannula* 3 32 Intake/Output Intake and Output 11/24/24 07:00 Intake Total 950 ml Output Total 500 ml Balance 450 ml Intake Oral 650 ml IV Total 300 ml Output Urine Total 500 ml # Bowel Movements 1 Medications Current Medications Medications Dose Ordered Sig/Ren Route Start Time Stop Time Status Last Admin Dose Admin Ceftriaxone Sodium 50 ml @ 100 mls/hr DAILY@09 IV 11/19/24 09:00 11/24/24 08:29 100 MLS/HR Azithromycin 250 ml @ 125 mls/hr DAILY IV 11/19/24 10:00 11/24/24 08:35 125 MLS/HR Ondansetron HCl 4 mg Q4HP PRN IV 11/18/24 12:15 11/20/24 13:19 4 MG Acetaminophen 650 mg Q6HP PRN PO 11/18/24 12:15 11/22/24 21:43 650 MG Quetiapine Fumarate 12.5 mg QPM PO 11/18/24 18:00 11/23/24 17:03 12.5 MG Patient Own Medication 2 tab HS PO 11/18/24 22:00 Ferrous Sulfate 325 mg BIDWM PO 11/18/24 18:00 11/24/24 08:28 325 MG Docusate Sodium 100 mg BIDPRN PRN PO 11/19/24 14:30 11/24/24 05:40 100 MG Pantoprazole Sodium 40 mg DAILY@0600 PO 11/20/24 06:00 11/24/24 05:40 40 MG Albuterol 2.5 mg Q4HR NEB 11/20/24 14:00 11/24/24 10:00 2.5 MG Ipratropium [place] 0.5 mg Q4HR NEB 11/20/24 14:00 11/24/24 10:00 0.5 MG Oseltamivir Phosphate 75 mg Q12HR PO 11/21/24 10:13 11/25/24 22:01 11/24/24 08:28 75 MG Acetaminophen/ Hydrocodone Bitart 1 tab Q4HPRN PRN PO 11/23/24 10:30 11/24/24 00:16 1 TAB Laboratory Results Laboratory Tests 11/22/24 06:52 11/22/24 06:57 Urinalysis Test 11/18/24 21:17 Urine Color Yellow (Yellow) Urine Clarity Clear (Clear) Urine pH 5.5 (5.0-9.0) Urine Specific [place] 1.020 (1.001-1.035) Urine Protein Negative (Negative) Urine Ketones Trace (Negative) Urine Blood Negative /uL (Negative) Urine Nitrite Negative (Negative) Urine Bilirubin Negative (Negative) Urine Urobilinogen Normal mg/dL (Negative) Urine Leukocyte Esterase Negative /uL (Negative) Urine RBC 1 /hpf (0 - 3) Urine WBC 1 /hpf (0 - 3) Urine Squamous Epithelial Cells Few /hpf (<5) Urine Bacteria None seen /hpf (None Seen) Urine Glucose Normal mg/dL (Normal) Labs and/or images reviewed: Labs reviewed by me, Image(s) reviewed by me Assessment/Plan Assessment/Plan Severe aortic stenosis by echocardiogram: Transfer to higher level of care for TAVR per Cardiology, discussed with the patient and he is willing for transfer Acute chest pain in the setting of severe anemia Acute hypoxic respiratory failure: Oxygen by nasal cannula albuterol Atrovent consult for Dr. Mar Acute community-acquired pneumonia: Rocephin azithromycin Ruled out congestive heart failure echocardiogram BNP cardiology consult Acute symptomatic anemia with hemoglobin 5.3, improved to 6.8 after 2 units RBC transfusion, GI consult for Dr. Molina to rule out any GI causes for anemia Depression Bipolar History of spinal fusion History of tobacco use: Counseling Flu type A positive: Tamiflu Mallika test negative D-dimer elevated 1.67 CT chest angiogram pending Time spent 55 minutes Patient is full code Orders placed for transfer to higher level of care for TAVR Examined Today: No new complaints, Awaiting Transfer to higher level of care Plan discussed with: Patient Date of Service: Nov 24, 2024 Billing Provider: MICHELLE ANDERSON MD Common Visit Codes: [id number] INP/OBS CARE(HIGH) MICHELLE ANDERSON MD Nov 24, 2024 10:53
--- NOTE | 2024-11-24 15:27 | DVHPN2 ---
Progress Note Date Seen: Nov 24, 2024 Resident Creating Document: SERA MURILLO RESIDENT Has the PT tested + for MRSA If YES, has PT been informed?: No Medical Necessity Reason Pt with a Central, PICC or Fol: No Subjective Review of Systems Saw the patient at bedside, overall feels better than previous visit. Patient reports: Feels better Objective vital signs Vital Sign Date Time Temp Pulse Resp B/P (MAP) Pulse Ox O2 Delivery O2 Flow Rate FiO2 11/24/24 14:10 95 20 99 11/24/24 14:00 Nasal Cannula* 3 32 11/24/24 13:00 98.0 110/60 (77) 98.0 Total Intake and Output 11/23/24 11/23/24 11/24/24 15:00 23:00 07:00 Intake Total 50 ml 700 ml 200 ml Output Total 500 ml Balance 50 ml 200 ml 200 ml medications Current Medications Medications Dose Ordered Sig/Ren Route Start Time Stop Time Status Last Admin Dose Admin Ceftriaxone Sodium 50 ml @ 100 mls/hr DAILY@09 IV 11/19/24 09:00 11/24/24 08:29 100 MLS/HR Azithromycin 250 ml @ 125 mls/hr DAILY IV 11/19/24 10:00 11/24/24 08:35 125 MLS/HR Ondansetron HCl 4 mg Q4HP PRN IV 11/18/24 12:15 11/20/24 13:19 4 MG Acetaminophen 650 mg Q6HP PRN PO 11/18/24 12:15 11/22/24 21:43 650 MG Quetiapine Fumarate 12.5 mg QPM PO 11/18/24 18:00 11/23/24 17:03 12.5 MG Patient Own Medication 2 tab HS PO 11/18/24 22:00 Ferrous Sulfate 325 mg BIDWM PO 11/18/24 18:00 11/24/24 08:28 325 MG Docusate Sodium 100 mg BIDPRN PRN PO 11/19/24 14:30 11/24/24 05:40 100 MG Pantoprazole Sodium 40 mg DAILY@0600 PO 11/20/24 06:00 11/24/24 05:40 40 MG Albuterol 2.5 mg Q4HR NEB 11/20/24 14:00 11/24/24 14:01 2.5 MG Ipratropium [place] 0.5 mg Q4HR NEB 11/20/24 14:00 11/24/24 14:01 0.5 MG Oseltamivir Phosphate 75 mg Q12HR PO 11/21/24 10:13 11/25/24 22:01 11/24/24 08:28 75 MG Acetaminophen/ Hydrocodone Bitart 1 tab Q4HPRN PRN PO 11/23/24 10:30 11/24/24 00:16 1 TAB Examination: GENERAL:Abnormal (pallor b/l), HEENT:Normal, NECK:Normal, LUNGS:Normal, CVS:Normal, ABDOMEN:Normal (BS+ , no tenderness, -ve for acute abdomen or surgical abdomen. ), MSK:Normal, SKIN:Normal, NEURO:Normal, :Normal laboratory and microbiology Laboratory Tests 11/22/24 06:57 11/22/24 06:52 Test 11/22/24 06:52 Range/Units Serum Glucose 73 L 74-106 mg/dL Labs and/or images reviewed: Labs reviewed by me, Image(s) reviewed by me Problem List/Assessment/Plan Problem List/Assessment/Plan Reasons for consultation: Severe anemia rule out GI causes Hospitalization Summary: An 79-year-old male presented with generalized weakness, shortness of breath for two weeks, and intermittent, sharp, substernal chest pain provoked by inhalation. Cardiology was consulted, and an initial ECG showed normal sinus rhythm with right bundle branch block. His initial troponin level was 28 ng/L. His medical history includes anemia, arthritis, bipolar disorder, depression, skin cancer, obesity, and previous spinal surgery. GI Assessment: # acute severe symptomatic anemia with hemoglobin 5.3, improved after 4 units RBC transfusion, H&H stable # chronic constipation x 1 month + (last bowel movement 11/23/2024) FOBT negative # cholelithiasis without evidence of cholecystitis # abdominal pain of unknown etiology # hepatic steatosis # hepatitis A positive # microcytic hypochromic anemia - # severe aortic stenosis # acute chest pain in the setting of severe anemia, likely iron-deficiency anemia # acute hypoxic respiratory failure # community-acquired pneumonia on IV abx # bipolar disorder # History of spinal fusion # active tobacco user # influenza type a on Tamiflu # pending placement to higher level of care for TAVR # Moderate to severe pulmonary hypertension. # lumbosacral radiculopathy with degenerative joint disease of spine # onychomycosis GI Plan: #Medications: Pantoprazole tablet 40 mg daily short course for 6 weeks. Colace b.i.d. ferrous sulfate 325 mg p.o. can consider adding vitamin-C/orange juice for better iron absorption. #Labs: Check CBC/follow up H&H transfusion threshold if it drops below 7. #Imaging/other work up: Obtain other GI workup from [facility]/other system. #Procedure: Outpatient once he recovers from his influenza to arrange outpatient elective panendoscopy #Others: Might consider following up with the hemato oncologist as outpatient for further workup of anemia. #please scheduled follow up with GI as outpatient with Dr. Fawn Molina. Thank you so much for the opportunity to consult on your patient. GI team will follow the patient. In case of any questions or concerns please feel free to reach out. Case and action plan discussed with Dr. Bernadette Molina. Complex care planning needed total 45 minutes of detailed discussion. The patient and caregiver team agreed to the plan. Plan discussed with: Patient, Other (Primary team. ) CC Plasma Assessment Blood Product Administration S: 20:35 SERA MURILLO RESIDENT Nov 24, 2024 15:27
--- NOTE | 2024-11-24 16:45 | DVHPN2 ---
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 No cardiac complaints at time of assessment Objective vital signs Vital Sign Date Time Temp Pulse Resp B/P (MAP) Pulse Ox O2 Delivery O2 Flow Rate FiO2 11/24/24 14:10 95 20 99 11/24/24 14:00 Nasal Cannula* 3 32 11/24/24 13:00 98.0 110/60 (77) 98.0 Total Intake and Output 11/23/24 11/23/24 11/24/24 15:00 23:00 07:00 Intake Total 50 ml 700 ml 200 ml Output Total 500 ml Balance 50 ml 200 ml 200 ml medications Current Medications Medications Dose Ordered Sig/Ren Route Start Time Stop Time Status Last Admin Dose Admin Ceftriaxone Sodium 50 ml @ 100 mls/hr DAILY@09 IV 11/19/24 09:00 11/24/24 08:29 100 MLS/HR Azithromycin 250 ml @ 125 mls/hr DAILY IV 11/19/24 10:00 11/24/24 08:35 125 MLS/HR Ondansetron HCl 4 mg Q4HP PRN IV 11/18/24 12:15 11/20/24 13:19 4 MG Acetaminophen 650 mg Q6HP PRN PO 11/18/24 12:15 11/22/24 21:43 650 MG Quetiapine Fumarate 12.5 mg QPM PO 11/18/24 18:00 11/23/24 17:03 12.5 MG Patient Own Medication 2 tab HS PO 11/18/24 22:00 Ferrous Sulfate 325 mg BIDWM PO 11/18/24 18:00 11/24/24 08:28 325 MG Docusate Sodium 100 mg BIDPRN PRN PO 11/19/24 14:30 11/24/24 05:40 100 MG Pantoprazole Sodium 40 mg DAILY@0600 PO 11/20/24 06:00 11/24/24 05:40 40 MG Albuterol 2.5 mg Q4HR NEB 11/20/24 14:00 11/24/24 14:01 2.5 MG Ipratropium [place] 0.5 mg Q4HR NEB 11/20/24 14:00 11/24/24 14:01 0.5 MG Oseltamivir Phosphate 75 mg Q12HR PO 11/21/24 10:13 11/25/24 22:01 11/24/24 08:28 75 MG Acetaminophen/ Hydrocodone Bitart 1 tab Q4HPRN PRN PO 11/23/24 10:30 11/24/24 00:16 1 TAB Examination: GENERAL:Abnormal (Generalized weakness), LUNGS:Normal, CVS:Normal, NEURO:Normal laboratory and microbiology Laboratory Tests 11/22/24 06:57 11/22/24 06:52 Test 11/22/24 06:52 Range/Units Serum Glucose 73 L 74-106 mg/dL Problem List/Assessment/Plan Problem List/Assessment/Plan Chest pain in the setting of severe anemia Severe aortic stenosis Moderate to severe pulmonary hypertension Influenza type A positive Acute hypoxic respiratory failure secondary to above Arthritis Depression Bipolar History of tobacco use Obesity Plan/Recommendation (Dr. Glaser): Transthoracic echocardiogram reveals EF 60%. Aortic valve area estimated 0.58 cm2 with mean gradient 72 mmHg and peak gradient 105 mmHg in keeping with severe aortic stenosis. We will recommend for the patient to be transferred to higher level of care for possible valvular workup for possible TAVR. In the meantime, continue to monitor hemoglobin and hematocrit closely and transfuse PRBC as needed. Avoid anticoagulation therapy given severe anemia on admission. GI consult and recommendations. Thank you for allowing us to care for this patient. Please call with any questions or concerns. This medical document was created using an electronic medical record system with voice recognition software and computerized dictation system. Although this document has been carefully reviewed, there might still be some phonetic and typographical errors. Occasional wrong-word or ``sound-alike substitutions may have occurred due to the inherent limitations of voice recognition software. These areas are purely typographical due to imperfections of the software programs and do not reflect any compromise in the patient's medical care. Please read the chart carefully and recognize, using context, where these substitutions have occurred. Plan discussed with: Patient CC Plasma Assessment Blood Product Administration S: 20:35 Date of Service: Nov 24, 2024 Billing Provider: KEVIN GLASER MD Common Visit Codes: [id number] INP/OBS CARE(HIGH) RANJIT SOUZA COLORIST FORMULATOR Nov 24, 2024 16:45
--- NOTE | 2024-11-24 23:20 | DVHPN2 ---
Progress Note - Dictate Date Seen: Nov 24, 2024 Has the PT tested + for MRSA If YES, has PT been informed?: No Medical Necessity Reason Pt with a Central, PICC or Fol: No Subjective Patient seen and examined at bedside. Remains on supplemental oxygen Overnight events reviewed. vital signs Vital Sign Date Time Temp Pulse Resp B/P (MAP) Pulse Ox O2 Delivery O2 Flow Rate FiO2 11/24/24 22:34 79 18 100 11/24/24 22:26 Nasal Cannula* 3 32 11/24/24 21:00 97.9 110/67 (81) 97.9 Total Intake and Output 11/23/24 11/23/24 11/24/24 15:00 23:00 07:00 Intake Total 50 ml 700 ml 200 ml Output Total 500 ml Balance 50 ml 200 ml 200 ml medications Current Medications Medications Dose Ordered Sig/Ren Route Start Time Stop Time Status Last Admin Dose Admin Ceftriaxone Sodium 50 ml @ 100 mls/hr DAILY@09 IV 11/19/24 09:00 11/24/24 08:29 100 MLS/HR Azithromycin 250 ml @ 125 mls/hr DAILY IV 11/19/24 10:00 11/24/24 08:35 125 MLS/HR Ondansetron HCl 4 mg Q4HP PRN IV 11/18/24 12:15 11/20/24 13:19 4 MG Acetaminophen 650 mg Q6HP PRN PO 11/18/24 12:15 11/22/24 21:43 650 MG Quetiapine Fumarate 12.5 mg QPM PO 11/18/24 18:00 11/24/24 17:36 12.5 MG Patient Own Medication 2 tab HS PO 11/18/24 22:00 Ferrous Sulfate 325 mg BIDWM PO 11/18/24 18:00 11/24/24 17:35 325 MG Docusate Sodium 100 mg BIDPRN PRN PO 11/19/24 14:30 11/24/24 05:40 100 MG Pantoprazole Sodium 40 mg DAILY@0600 PO 11/20/24 06:00 11/24/24 05:40 40 MG Albuterol 2.5 mg Q4HR NEB 11/20/24 14:00 11/24/24 22:25 2.5 MG Ipratropium [place] 0.5 mg Q4HR NEB 11/20/24 14:00 11/24/24 22:26 0.5 MG Oseltamivir Phosphate 75 mg Q12HR PO 11/21/24 10:13 11/25/24 22:01 11/24/24 21:28 75 MG Acetaminophen/ Hydrocodone Bitart 1 tab Q4HPRN PRN PO 11/23/24 10:30 11/24/24 21:40 1 TAB objective Gen.: Patient lying in bed in no apparent distress. On supplemental oxygen. Head: Normocephalic, atraumatic. Eyes: EOMI/PERRLA. Ears: Normal hearing. Normal anatomy. Neck/trachea: Trachea midline, supple. Nose: Normal external anatomy. Mouth: Moist mucous membranes. Chest: Decreased air entry bilaterally. No wheezing or rhonchi. Cardiovascular: Positive S1, positive S2. Regular rate and rhythm. Abdomen: Positive bowel sounds in all 4 quadrants. Soft, non-tender, non- distended. : Deferred. Rectal: Deferred. Skin: Warm, dry. Intact. Extremities: 2+ radial pulses bilaterally. No lower extremity edema. Neuro: Awake, alert, oriented x3. No gross motor or sensory deficits. Cranial nerves II through XII intact. Gait not assessed. laboratory and microbiology Laboratory Tests 11/22/24 06:57 11/22/24 06:52 Test 11/22/24 06:52 Range/Units Serum Glucose 73 L 74-106 mg/dL Assessment/Plan Impression: Acute hypoxic respiratory failure Dependence on supplemental oxygen Influenza A Pulmonary edema Pneumonia, likely gram negative Events: Remains on supplemental oxygen, 3 LPM NC Taper O2 as tolerated Awaiting HLOC for mitral valve. Continue bronchodilators q.4 hours Continue antibiotics Tamiflu course Iron supplementation Monitor hemoglobin Cardiology recs appreciated GI prophylaxis w/ Protonix Labs and imaging reviewed. Rest of plan as noted below. Plan: Supplemental oxygen Titrate to keep O2 sats above 92%. Continue bronchodilators. Tamiflu course Continue antibiotics Monitor renal function. Monitor electrolytes. Supplement as necessary. Monitor ins and outs. DVT prophylaxis. Prognosis: Poor given patient's multiple co-morbidities. Rest of plan per hospitalist and other consultants. A total of 51 minutes of clinical care time was spent reviewing the patient record, examining the patient, making a diagnostic and therapeutic plan, discussing this plan with the medical personnel, following up on diagnostic studies and following the patient for clinical stability excluding any and all procedures. At least 50% of this time was spent in direct, [id number] contact. Thank you, Dr. Lares, for allowing me to participate in this patient's care. Further recommendations will depend on the patient's clinical course. Please do not hesitate to contact me if you have any questions or concerns. This medical document was created using an electronic medical record system with [employer] dictation system. Although these documentations are being carefully reviewed, there may still be some phonetic and typographical changes. The errors are purely typographical, due to imperfection on the software program, and do not reflect any compromise in the patient's medical care. Plan discussed with: Patient, Other (DOT Simmons) CC Plasma Assessment Blood Product Administration S: 20:35 LUZ NEWTON MD Nov 24, 2024 23:20
[2024-11-25] VITALS (23 sets, daily range): BP systolic 105–148; BP diastolic 54–93; PULSE 66–93; RESP 14–20; TEMP 97.4–99.8; O2SAT 90–100
[2024-11-25 09:28] LABS: Eosinophils # (auto) 0.3 10 ^3/uL (0-0.8); Hemoglobin 8.5 g/dL (13.5-17.5); Lymphocytes # (auto) 1.5 10 ^3/uL (0.4-5.4); Neutrophils # (auto) 1.5 10 ^3/uL (1.6-8.6); Nucleated Red Blood Cells % 0.1 %; Red Cell Distribution Width 26.2 % (11.8-14.3); White Blood Cell 3.6 10^3/uL (4.4-10.8)
[2024-11-25 09:31] LABS: Basophils # (auto) 0 10 ^3/uL (0-0.2); Basophils % (auto) 0.9 % (0.0-2.0); Eosinophils % (auto) 7.5 % (0.0-7.0); Hematocrit 27.3 % (41.0-53.0); Lymphocytes % (auto) 41.7 % (10.0-50.0); Mean Corpuscular Hemoglobin 23.7 pg (28.0-32.0); Mean Corpuscular Hgb Conc. 31.2 g/dL (32.0-36.0); Mean Corpuscular Volume 75.9 fL (80.0-100.0); Monocytes # (auto) 0.4 10 ^3/uL (0-1.3); Monocytes % (auto) 9.7 % (0.0-12.0); Neutrophils % (auto) 40.2 % (37.0-80.0); Platelet Count (auto) 217 10^3/uL (140-450)
[2024-11-25 09:51] LABS: Calcium 9.8 mg/dL (8.7-10.4); Chloride 104 mmol/L (98-107); Potassium 3.9 mmol/L (3.5-5.1); Sodium 139 mmol/L (136-145)
[2024-11-25 09:52] LABS: Anion Gap 6 (5-15); Carbon Dioxide 29 mmol/L (20-31)
[2024-11-25 09:57] LABS: Blood Urea Nitrogen 13 mg/dL (9-23)
[2024-11-25 10:25] LABS: Glucose 130 mg/dL (74-106)
--- NOTE | 2024-11-25 11:03 | DVHPN2 ---
Reviewed: Care Plan, H&P, Labs, Medications, Previous Orders, Radiology Changes from previous H/P or p: No Changes Eyes: No Pain, No Vision change, No Conjunctivae inflammation, No Eyelid inflammation, No Other, No Redness ENT: No Ear pain, No Ear discharge, No Nose pain, No Nose discharge, No Nose congestion, No Mouth pain, No Mouth swelling, No Throat pain, No Throat swelling, No Other Cardiovascular: No Chest Pain, No Palpitations, No Orthopnea, No Paroxysmal Noc. Dyspnea, No Edema, No Lt Headedness, No Other Respiratory: No Cough, No Dry; Shortness of breath; No SOB with excertion, No Wheezing, No Hemoptysis, No Pleuritic Pain, No Sputum, No Other Gastrointestinal: No Nausea, No Vomiting, No Abdominal Pain, No Diarrhea, No Constipation, No Melena, No Hematochezia, No Other Genitourinary: No Dysuria, No Frequency, No Incontinence, No Hematuria, No Retention, No Other Musculoskeletal: No other, No neck pain, No shoulder pain, No arm pain, No back pain, No hand pain, No leg pain, No foot pain Skin: No Rash, No Lesions, No Jaundice, No Bruising, No Other Objective Vitals Vital Signs Date Time Temp Pulse Resp B/P (MAP) Pulse Ox O2 Delivery O2 Flow Rate FiO2 11/25/24 10:17 85 14 97 11/25/24 09:00 99.8 148/93 (111) 99.8 11/25/24 06:24 Nasal Cannula* 3 32 Intake/Output Intake and Output 11/25/24 07:00 Intake Total 1350 ml Output Total 1400 ml Balance -50 ml Intake Oral 1050 ml IV Total 300 ml Output Urine Total 1400 ml # Bowel Movements 1 Medications Current Medications Medications Dose Ordered Sig/Ren Route Start Time Stop Time Status Last Admin Dose Admin Ceftriaxone Sodium 50 ml @ 100 mls/hr DAILY@09 IV 11/19/24 09:00 11/24/24 08:29 100 MLS/HR Azithromycin 250 ml @ 125 mls/hr DAILY IV 11/19/24 10:00 11/24/24 08:35 125 MLS/HR Ondansetron HCl 4 mg Q4HP PRN IV 11/18/24 12:15 11/20/24 13:19 4 MG Acetaminophen 650 mg Q6HP PRN PO 11/18/24 12:15 11/22/24 21:43 650 MG Quetiapine Fumarate 12.5 mg QPM PO 11/18/24 18:00 11/24/24 17:36 12.5 MG Patient Own Medication 2 tab HS PO 11/18/24 22:00 Ferrous Sulfate 325 mg BIDWM PO 11/18/24 18:00 11/24/24 17:35 325 MG Docusate Sodium 100 mg BIDPRN PRN PO 11/19/24 14:30 11/25/24 05:40 100 MG Pantoprazole Sodium 40 mg DAILY@0600 PO 11/20/24 06:00 11/25/24 05:40 40 MG Albuterol 2.5 mg Q4HR NEB 11/20/24 14:00 11/25/24 06:22 2.5 MG Ipratropium [place] 0.5 mg Q4HR NEB 11/20/24 14:00 11/25/24 06:22 0.5 MG Oseltamivir Phosphate 75 mg Q12HR PO 11/21/24 10:13 11/25/24 22:01 11/24/24 21:28 75 MG Acetaminophen/ Hydrocodone Bitart 1 tab Q4HPRN PRN PO 11/23/24 10:30 11/25/24 05:41 1 TAB Laboratory Results Laboratory Tests 11/25/24 08:49 Chemistry Test 11/25/24 08:49 Calcium Level 9.8 mg/dL (8.7-10.4) Urinalysis Test 11/18/24 21:17 Urine Color Yellow (Yellow) Urine Clarity Clear (Clear) Urine pH 5.5 (5.0-9.0) Urine Specific [place] 1.020 (1.001-1.035) Urine Protein Negative (Negative) Urine Ketones Trace (Negative) Urine Blood Negative /uL (Negative) Urine Nitrite Negative (Negative) Urine Bilirubin Negative (Negative) Urine Urobilinogen Normal mg/dL (Negative) Urine Leukocyte Esterase Negative /uL (Negative) Urine RBC 1 /hpf (0 - 3) Urine WBC 1 /hpf (0 - 3) Urine Squamous Epithelial Cells Few /hpf (<5) Urine Bacteria None seen /hpf (None Seen) Urine Glucose Normal mg/dL (Normal) Labs and/or images reviewed: Labs reviewed by me, Image(s) reviewed by me Assessment/Plan Assessment/Plan Severe aortic stenosis by echocardiogram: Transfer to higher level of care for TAVR per Cardiology, discussed with the patient and he is willing for transfer Acute chest pain in the setting of severe anemia Acute hypoxic respiratory failure: Oxygen by nasal cannula albuterol Atrovent consult for Dr. Mar Acute community-acquired pneumonia: Rocephin azithromycin Ruled out congestive heart failure echocardiogram BNP cardiology consult Acute symptomatic anemia with hemoglobin 5.3, improved to 6.8 after 2 units RBC transfusion, GI consult for Dr. Molina to rule out any GI causes for anemia Depression Bipolar History of spinal fusion History of tobacco use: Counseling Flu type A positive: Completed course of Tamiflu Mallika test negative D-dimer elevated 1.67 CT chest angiogram pending Time spent 55 minutes Patient is full code Orders placed for transfer to higher level of care for TAVR Examined Today: No new complaints, Awaiting Transfer to higher level of care Plan discussed with: Patient Date of Service: Nov 25, 2024 Billing Provider: MICHELLE ANDERSON MD Common Visit Codes: [id number] INP/OBS CARE(HIGH) MICHELLE ANDERSON MD Nov 25, 2024 11:03
[2024-11-25 11:21] LABS: Platelet Estimate Adequate
[2024-11-25 11:23] LABS: Anisocytosis Moderate; Hypochromia Moderate; Ovalocytes MODERATE
--- NOTE | 2024-11-25 15:17 | DVHPNRES ---
Progress Note Date Seen: Nov 25, 2024 Resident Creating Document: SERA MURILLO RESIDENT Has the PT tested + for MRSA If YES, has PT been informed?: No Medical Necessity Reason Pt with a Central, PICC or Fol: No Subjective Review of Systems Saw the patient at bedside, overall feels better than previous visit. Denies any active GI complaints. Still waiting for the higher level of care transfer. H&H stable Objective vital signs Vital Sign Date Time Temp Pulse Resp B/P (MAP) Pulse Ox O2 Delivery O2 Flow Rate FiO2 11/25/24 14:27 90 14 97 11/25/24 13:00 97.7 133/67 (89) 97.7 11/25/24 06:24 Nasal Cannula* 3 32 Total Intake and Output 11/24/24 11/24/24 11/25/24 15:00 23:00 07:00 Intake Total 300 ml 500 ml 550 ml Output Total 600 ml 800 ml Balance 300 ml -100 ml -250 ml medications Current Medications Medications Dose Ordered Sig/Ren Route Start Time Stop Time Status Last Admin Dose Admin Ceftriaxone Sodium 50 ml @ 100 mls/hr DAILY@09 IV 11/19/24 09:00 11/25/24 09:00 100 MLS/HR Azithromycin 250 ml @ 125 mls/hr DAILY IV 11/19/24 10:00 11/25/24 10:00 125 MLS/HR Ondansetron HCl 4 mg Q4HP PRN IV 11/18/24 12:15 11/20/24 13:19 4 MG Acetaminophen 650 mg Q6HP PRN PO 11/18/24 12:15 11/22/24 21:43 650 MG Quetiapine Fumarate 12.5 mg QPM PO 11/18/24 18:00 11/24/24 17:36 12.5 MG Patient Own Medication 2 tab HS PO 11/18/24 22:00 Ferrous Sulfate 325 mg BIDWM PO 11/18/24 18:00 11/25/24 08:00 325 MG Docusate Sodium 100 mg BIDPRN PRN PO 11/19/24 14:30 11/25/24 05:40 100 MG Pantoprazole Sodium 40 mg DAILY@0600 PO 11/20/24 06:00 11/25/24 05:40 40 MG Albuterol 2.5 mg Q4HR NEB 11/20/24 14:00 11/25/24 14:19 2.5 [address] Ipratropium [place] 0.5 mg Q4HR NEB 11/20/24 14:00 11/25/24 14:19 0.5 MG Oseltamivir Phosphate 75 mg Q12HR PO 11/21/24 10:13 11/25/24 22:01 11/25/24 10:00 75 MG Acetaminophen/ Hydrocodone Bitart 1 tab Q4HPRN PRN PO 11/23/24 10:30 11/25/24 05:41 1 TAB Examination GENERAL:Abnormal (pallor b/l), HEENT:Normal, NECK:Normal, LUNGS:Normal, remains on 3 L of nasal cannula oxygen CVS:Normal, ABDOMEN:Normal (BS+ , no tenderness, -ve for acute abdomen or surgical abdomen. ), MSK:Normal, SKIN:Normal, NEURO:Normal, :Normal laboratory and microbiology Laboratory Tests 11/25/24 08:49 Test 11/25/24 08:49 Range/Units Serum Glucose 130 H 74-106 mg/dL Labs and/or images reviewed: Labs reviewed by me, Image(s) reviewed by me Problem List/Assessment/Plan Problem List/Assessment/Plan Reasons for consultation: Severe anemia rule out GI causes Hospitalization Summary: An 79-year-old male presented with generalized weakness, shortness of breath for two weeks, and intermittent, sharp, substernal chest pain provoked by inhalation. Cardiology was consulted, and an initial ECG showed normal sinus rhythm with right bundle branch block. His initial troponin level was 28 ng/L. His medical history includes anemia, arthritis, bipolar disorder, depression, skin cancer, obesity, and previous spinal surgery. GI Assessment: # acute severe symptomatic anemia with hemoglobin 5.3, improved after 4 units RBC transfusion, H&H stable # chronic constipation x 1 month + (last bowel movement 11/23/2024) FOBT negative # cholelithiasis without evidence of cholecystitis # abdominal pain of unknown etiology # hepatic steatosis # hepatitis A positive # microcytic hypochromic anemia - # severe aortic stenosis # acute chest pain in the setting of severe anemia, likely iron-deficiency anemia # acute hypoxic respiratory failure # community-acquired pneumonia on IV abx # bipolar disorder # History of spinal fusion # active tobacco user # influenza type a on Tamiflu # pending placement to higher level of care for TAVR # Moderate to severe pulmonary hypertension. # lumbosacral radiculopathy with degenerative joint disease of spine # onychomycosis GI Plan: #Medications: Pantoprazole tablet 40 mg daily short course for 6 weeks. Colace b.i.d. ferrous sulfate 325 mg p.o. can consider adding vitamin-C/orange juice for better iron absorption. #Labs: Check CBC/follow up H&H transfusion threshold if it drops below 7. #Imaging/other work up: Obtain other GI workup from [facility]/other system. #Procedure: Outpatient once he recovers from his influenza to arrange outpatient elective panendoscopy #Others: Might consider following up with the hemato oncologist as outpatient for further workup of anemia. #please scheduled follow up with GI as outpatient with Dr. Fawn Molina. Thank you so much for the opportunity to consult on your patient. GI team will follow the patient. In case of any questions or concerns please feel free to reach out. Case and action plan discussed with Dr. Bernadette Molina. Complex care planning needed total 45 minutes of detailed discussion. The patient and caregiver team agreed to the plan. Plan discussed with: Patient, Other (Primary team) Dietary Evaluation Review Comments: 1) Advance pt diet when medically feasible Expected Outcomes/Goals: F/U in 3-5 days CC Plasma Assessment Blood Product Administration S: 20:35 SERA MURILLO RESIDENT Nov 25, 2024 15:17
[2024-11-25] MEDS: POLYETHYLENE GLYCOL 17 GM PWDR PO ONE (16:00)
--- NOTE | 2024-11-25 22:54 | DVHPN2 ---
Progress Note - Dictate Date Seen: Nov 25, 2024 Has the PT tested + for MRSA If YES, has PT been informed?: No Medical Necessity Reason Pt with a Central, PICC or Fol: No Subjective Patient seen and examined at bedside. Remains on supplemental oxygen Overnight events reviewed. vital signs Vital Sign Date Time Temp Pulse Resp B/P (MAP) Pulse Ox O2 Delivery O2 Flow Rate FiO2 11/25/24 22:45 80 14 100 11/25/24 20:51 97.4 117/64 (81) 97.4 11/25/24 10:00 Nasal Cannula* 3 32 Total Intake and Output 11/24/24 11/24/24 11/25/24 15:00 23:00 07:00 Intake Total 300 ml 500 ml 550 ml Output Total 600 ml 800 ml Balance 300 ml -100 ml -250 ml medications Current Medications Medications Dose Ordered Sig/Ren Route Start Time Stop Time Status Last Admin Dose Admin Ceftriaxone Sodium 50 ml @ 100 mls/hr DAILY@09 IV 11/19/24 09:00 11/25/24 09:00 100 MLS/HR Azithromycin 250 ml @ 125 mls/hr DAILY IV 11/19/24 10:00 11/25/24 10:00 125 MLS/HR Ondansetron HCl 4 mg Q4HP PRN IV 11/18/24 12:15 11/20/24 13:19 4 MG Acetaminophen 650 mg Q6HP PRN PO 11/18/24 12:15 11/22/24 21:43 650 MG Quetiapine Fumarate 12.5 mg QPM PO 11/18/24 18:00 11/25/24 18:21 12.5 MG Patient Own Medication 2 tab HS PO 11/18/24 22:00 Ferrous Sulfate 325 mg BIDWM PO 11/18/24 18:00 11/25/24 18:21 325 MG Docusate Sodium 100 mg BIDPRN PRN PO 11/19/24 14:30 11/25/24 05:40 100 MG Pantoprazole Sodium 40 mg DAILY@0600 PO 11/20/24 06:00 11/25/24 05:40 40 MG Albuterol 2.5 mg Q4HR NEB 11/20/24 14:00 11/25/24 22:44 2.5 MG Ipratropium [place] 0.5 mg Q4HR NEB 11/20/24 14:00 11/25/24 22:44 0.5 MG Acetaminophen/ Hydrocodone Bitart 1 tab Q4HPRN PRN PO 11/23/24 10:30 11/25/24 05:41 1 TAB objective Gen.: Patient lying in bed in no apparent distress. On supplemental oxygen. Head: Normocephalic, atraumatic. Eyes: EOMI/PERRLA. Ears: Normal hearing. Normal anatomy. Neck/trachea: Trachea midline, supple. Nose: Normal external anatomy. Mouth: Moist mucous membranes. Chest: Decreased air entry bilaterally. No wheezing or rhonchi. Cardiovascular: Positive S1, positive S2. Regular rate and rhythm. Abdomen: Positive bowel sounds in all 4 quadrants. Soft, non-tender, non- distended. : Deferred. Rectal: Deferred. Skin: Warm, dry. Intact. Extremities: 2+ radial pulses bilaterally. No lower extremity edema. Neuro: Awake, alert, oriented x3. No gross motor or sensory deficits. Cranial nerves II through XII intact. Gait not assessed. laboratory and microbiology Laboratory Tests 11/25/24 08:49 Test 11/25/24 08:49 Range/Units Serum Glucose 130 H 74-106 mg/dL Assessment/Plan Impression: Acute hypoxic respiratory failure Dependence on supplemental oxygen Influenza A Pulmonary edema Pneumonia, likely gram negative Events: Remains on supplemental oxygen, 3 LPM NC Taper O2 as tolerated Awaiting higher [facility] care [facility] for TAVR. Continue bronchodilators q.4 hours Continue antibiotics Tamiflu course Iron supplementation Monitor hemoglobin Cardiology recs appreciated GI prophylaxis w/ Protonix Labs and imaging reviewed. Rest of plan as noted below. Plan: Supplemental oxygen Titrate to keep O2 sats above 92%. Continue bronchodilators. Tamiflu course Continue antibiotics Monitor renal function. Monitor electrolytes. Supplement as necessary. Monitor ins and outs. DVT prophylaxis. Prognosis: Poor given patient's multiple co-morbidities. Rest of plan per hospitalist and other consultants. A total of 51 minutes of clinical care time was spent reviewing the patient record, examining the patient, making a diagnostic and therapeutic plan, discussing this plan with the medical personnel, following up on diagnostic studies and following the patient for clinical stability excluding any and all procedures. At least 50% of this time was spent in direct, [id number] contact. Thank you, Dr. Lares, for allowing me to participate in this patient's care. Further recommendations will depend on the patient's clinical course. Please do not hesitate to contact me if you have any questions or concerns. This medical document was created using an electronic medical record system with [employer] dictation system. Although these documentations are being carefully reviewed, there may still be some phonetic and typographical changes. The errors are purely typographical, due to imperfection on the software program, and do not reflect any compromise in the patient's medical care. Dietary Evaluation Review Comments: 1) Advance pt diet when medically feasible Expected Outcomes/Goals: F/U in 3-5 days Plan discussed with: Patient, Other (DOT Giordano) CC Plasma Assessment Blood Product Administration S: 20:35 LUZ NEWTON MD Nov 25, 2024 22:54
[2024-11-26] VITALS (20 sets, daily range): BP systolic 92–123; BP diastolic 51–66; PULSE 68–104; RESP 14–20; TEMP 97.5–98.7; O2SAT 90–100
--- NOTE | 2024-11-26 09:53 | DVHPN2 ---
Consult Progress Note Subjective Other Systems: The patient remains in normal sinus rhythm on child monitor The patient has been accepted at [facility] Objective vital signs Vital Sign Date Time Temp Pulse Resp B/P (MAP) Pulse Ox O2 Delivery O2 Flow Rate FiO2 11/26/24 09:47 82 17 100 11/26/24 09:47 Nasal Cannula 3.0 11/26/24 09:47 32 11/26/24 09:05 110/51 11/26/24 08:34 97.7 97.7 Total Intake and Output 11/25/24 11/25/24 11/26/24 15:00 23:00 07:00 Intake Total 50 ml 650 ml 200 ml Output Total 600 ml 1400 ml Balance 50 ml 50 ml -1200 ml medications Current Medications Medications Dose Ordered Sig/Ren Route Start Time Stop Time Status Last Admin Dose Admin Ceftriaxone Sodium 50 ml @ 100 mls/hr DAILY@09 IV 11/19/24 09:00 11/26/24 08:35 100 MLS/HR Azithromycin 250 ml @ 125 mls/hr DAILY IV 11/19/24 10:00 11/25/24 10:00 125 MLS/HR Ondansetron HCl 4 mg Q4HP PRN IV 11/18/24 12:15 11/20/24 13:19 4 MG Acetaminophen 650 mg Q6HP PRN PO 11/18/24 12:15 11/22/24 21:43 650 MG Quetiapine Fumarate 12.5 mg QPM PO 11/18/24 18:00 11/25/24 18:21 12.5 MG Patient Own Medication 2 tab HS PO 11/18/24 22:00 Ferrous Sulfate 325 mg BIDWM PO 11/18/24 18:00 11/26/24 08:00 325 MG Docusate Sodium 100 mg BIDPRN PRN PO 11/19/24 14:30 11/25/24 05:40 100 MG Pantoprazole Sodium 40 mg DAILY@0600 PO 11/20/24 06:00 11/26/24 06:25 40 MG Albuterol 2.5 mg Q4HR NEB 11/20/24 14:00 11/26/24 09:41 2.5 MG Ipratropium [place] 0.5 mg Q4HR NEB 11/20/24 14:00 11/26/24 09:41 0.5 MG Acetaminophen/ Hydrocodone Bitart 1 tab Q4HPRN PRN PO 11/23/24 10:30 11/26/24 02:38 1 TAB Examination: GENERAL:Abnormal (Generalized weakness), LUNGS:Normal, CVS:Normal, NEURO:Normal laboratory and microbiology Laboratory Tests 11/25/24 08:49 Test 11/25/24 08:49 Range/Units Serum Glucose 130 H 74-106 mg/dL Problem List/Assessment/Plan Problem List/Assessment/Plan Chest pain in the setting of severe anemia Severe aortic stenosis Moderate to severe pulmonary hypertension Influenza type A positive Acute hypoxic respiratory failure secondary to above Arthritis Depression Bipolar History of tobacco use Obesity Plan/Recommendation (Dr. Glaser): Transthoracic echocardiogram reveals EF 60%. Aortic valve area estimated 0.58 cm2 with mean gradient 72 mmHg and peak gradient 105 mmHg in keeping with severe aortic stenosis. We will recommend for the patient to be transferred to higher level of care for possible valvular workup for possible TAVR. The patient has been accepted at [facility] and is currently awaiting bed availability. In the meantime, continue to monitor hemoglobin and hematocrit closely and transfuse PRBC as needed. Avoid anticoagulation therapy given severe anemia on admission. GI consult and recommendations. Thank you for allowing us to care for this patient. Please call with any questions or concerns. This medical document was created using an electronic medical record system with voice recognition software and computerized dictation system. Although this document has been carefully reviewed, there might still be some phonetic and typographical errors. Occasional wrong-word or ``sound-alike substitutions may have occurred due to the inherent limitations of voice recognition software. These areas are purely typographical due to imperfections of the software programs and do not reflect any compromise in the patient's medical care. Please read the chart carefully and recognize, using context, where these substitutions have occurred. Plan discussed with: Patient Dietary Evaluation Review Comments: 1) Advance pt diet when medically feasible Expected Outcomes/Goals: F/U in 3-5 days CC Plasma Assessment Blood Product Administration S: 20:35 Date of Service: Nov 26, 2024 Billing Provider: KEVIN GLASER MD Common Visit Codes: [id number] INP/OBS CARE(HIGH) RANJIT SOUZA INDIRECT SALES EXEC Nov 26, 2024 09:53
--- NOTE | 2024-11-26 10:15 | DVHPN2 ---
Reviewed: Care Plan, H&P, Labs, Medications, Previous Orders, Radiology Changes from previous H/P or p: No Changes Eyes: No Pain, No Vision change, No Conjunctivae inflammation, No Eyelid inflammation, No Other, No Redness ENT: No Ear pain, No Ear discharge, No Nose pain, No Nose discharge, No Nose congestion, No Mouth pain, No Mouth swelling, No Throat pain, No Throat swelling, No Other Cardiovascular: No Chest Pain, No Palpitations, No Orthopnea, No Paroxysmal Noc. Dyspnea, No Edema, No Lt Headedness, No Other Respiratory: No Cough, No Dry; Shortness of breath; No SOB with excertion, No Wheezing, No Hemoptysis, No Pleuritic Pain, No Sputum, No Other Gastrointestinal: No Nausea, No Vomiting, No Abdominal Pain, No Diarrhea, No Constipation, No Melena, No Hematochezia, No Other Genitourinary: No Dysuria, No Frequency, No Incontinence, No Hematuria, No Retention, No Other Musculoskeletal: No other, No neck pain, No shoulder pain, No arm pain, No back pain, No hand pain, No leg pain, No foot pain Skin: No Rash, No Lesions, No Jaundice, No Bruising, No Other Objective Vitals Vital Signs Date Time Temp Pulse Resp B/P (MAP) Pulse Ox O2 Delivery O2 Flow Rate FiO2 11/26/24 09:47 82 17 100 11/26/24 09:47 Nasal Cannula 3.0 11/26/24 09:47 32 11/26/24 09:05 110/51 11/26/24 08:34 97.7 97.7 Intake/Output Intake and Output 11/26/24 07:00 Intake Total 900 ml Output Total 2000 ml Balance -1100 ml Intake Oral 600 ml IV Total 300 ml Output Urine Total 2000 ml # Bowel Movements 1 Medications Current Medications Medications Dose Ordered Sig/Ren Route Start Time Stop Time Status Last Admin Dose Admin Ceftriaxone Sodium 50 ml @ 100 mls/hr DAILY@09 IV 11/19/24 09:00 11/26/24 08:35 100 MLS/HR Azithromycin 250 ml @ 125 mls/hr DAILY IV 11/19/24 10:00 11/25/24 10:00 125 MLS/HR Ondansetron HCl 4 mg Q4HP PRN IV 11/18/24 12:15 11/20/24 13:19 4 MG Acetaminophen 650 mg Q6HP PRN PO 11/18/24 12:15 11/22/24 21:43 650 MG Quetiapine Fumarate 12.5 mg QPM PO 11/18/24 18:00 11/25/24 18:21 12.5 MG Patient Own Medication 2 tab HS PO 11/18/24 22:00 Ferrous Sulfate 325 mg BIDWM PO 11/18/24 18:00 11/26/24 08:00 325 MG Docusate Sodium 100 mg BIDPRN PRN PO 11/19/24 14:30 11/25/24 05:40 100 MG Pantoprazole Sodium 40 mg DAILY@0600 PO 11/20/24 06:00 11/26/24 06:25 40 MG Albuterol 2.5 mg Q4HR NEB 11/20/24 14:00 11/26/24 09:41 2.5 MG Ipratropium [place] 0.5 mg Q4HR NEB 11/20/24 14:00 11/26/24 09:41 0.5 MG Acetaminophen/ Hydrocodone Bitart 1 tab Q4HPRN PRN PO 11/23/24 10:30 11/26/24 02:38 1 TAB Laboratory Results Laboratory Tests 11/25/24 08:49 Urinalysis Test 11/18/24 21:17 Urine Color Yellow (Yellow) Urine Clarity Clear (Clear) Urine pH 5.5 (5.0-9.0) Urine Specific [place] 1.020 (1.001-1.035) Urine Protein Negative (Negative) Urine Ketones Trace (Negative) Urine Blood Negative /uL (Negative) Urine Nitrite Negative (Negative) Urine Bilirubin Negative (Negative) Urine Urobilinogen Normal mg/dL (Negative) Urine Leukocyte Esterase Negative /uL (Negative) Urine RBC 1 /hpf (0 - 3) Urine WBC 1 /hpf (0 - 3) Urine Squamous Epithelial Cells Few /hpf (<5) Urine Bacteria None seen /hpf (None Seen) Urine Glucose Normal mg/dL (Normal) Labs and/or images reviewed: Labs reviewed by me, Image(s) reviewed by me Assessment/Plan Assessment/Plan Severe aortic stenosis by echocardiogram: Transfer to higher level of care for TAVR per Cardiology, discussed with the patient and he is willing for transfer Acute chest pain in the setting of severe anemia Acute hypoxic respiratory failure: Oxygen by nasal cannula albuterol Atrovent consult for Dr. Mar Acute community-acquired pneumonia: Rocephin azithromycin Ruled out congestive heart failure echocardiogram BNP cardiology consult Acute symptomatic anemia with hemoglobin 5.3, improved to 6.8 after 2 units RBC transfusion, GI consult for Dr. Molina to rule out any GI causes for anemia Depression Bipolar History of spinal fusion History of tobacco use: Counseling Flu type A positive: Completed course of Tamiflu Mallika test negative D-dimer elevated 1.67 CT chest angiogram pending Time spent 45 minutes Patient is full code Orders placed for transfer to higher level of care for TAVR Examined Today: No new complaints, Awaiting Transfer to higher level of care Plan discussed with: Patient Date of Service: Nov 26, 2024 Billing Provider: MICHELLE ANDERSON MD Common Visit Codes: [id number] INP/OBS CARE(HIGH) MICHELLE ANDERSON MD Nov 26, 2024 10:15
--- NOTE | 2024-11-26 11:56 | DVHPN2 ---
Progress Note Date Seen: Nov 26, 2024 Resident Creating Document: SERA MURILLO RESIDENT Has the PT tested + for MRSA If YES, has PT been informed?: No Medical Necessity Reason Pt with a Central, PICC or Fol: No Subjective Review of Systems Saw the patient at bedside, overall feels better than previous visit. Denies any active GI complaints. Still waiting for the higher level of care transfer. H&H stable. Patient reports: Feels better Objective vital signs Vital Sign Date Time Temp Pulse Resp B/P (MAP) Pulse Ox O2 Delivery O2 Flow Rate FiO2 11/26/24 09:47 82 17 100 11/26/24 09:47 Nasal Cannula 3.0 11/26/24 09:47 32 11/26/24 09:05 110/51 11/26/24 08:34 97.7 97.7 Total Intake and Output 11/25/24 11/25/24 11/26/24 15:00 23:00 07:00 Intake Total 50 ml 650 ml 200 ml Output Total 600 ml 1400 ml Balance 50 ml 50 ml -1200 ml medications Current Medications Medications Dose Ordered Sig/Ren Route Start Time Stop Time Status Last Admin Dose Admin Ceftriaxone Sodium 50 ml @ 100 mls/hr DAILY@09 IV 11/19/24 09:00 11/26/24 08:35 100 MLS/HR Azithromycin 250 ml @ 125 mls/hr DAILY IV 11/19/24 10:00 11/25/24 10:00 125 MLS/HR Ondansetron HCl 4 mg Q4HP PRN IV 11/18/24 12:15 11/20/24 13:19 4 MG Acetaminophen 650 mg Q6HP PRN PO 11/18/24 12:15 11/22/24 21:43 650 MG Quetiapine Fumarate 12.5 mg QPM PO 11/18/24 18:00 11/25/24 18:21 12.5 MG Patient Own Medication 2 tab HS PO 11/18/24 22:00 Ferrous Sulfate 325 mg BIDWM PO 11/18/24 18:00 11/26/24 08:00 325 MG Docusate Sodium 100 mg BIDPRN PRN PO 11/19/24 14:30 11/25/24 05:40 100 MG Pantoprazole Sodium 40 mg DAILY@0600 PO 11/20/24 06:00 11/26/24 06:25 40 MG Albuterol 2.5 mg Q4HR NEB 11/20/24 14:00 11/26/24 09:41 2.5 MG Ipratropium [place] 0.5 mg Q4HR NEB 11/20/24 14:00 11/26/24 09:41 0.5 MG Acetaminophen/ Hydrocodone Bitart 1 tab Q4HPRN PRN PO 11/23/24 10:30 11/26/24 02:38 1 TAB Examination GENERAL:Abnormal (pallor b/l), HEENT:Normal, NECK:Normal, LUNGS:Normal, remains on 3 L of nasal cannula oxygen CVS:Normal, ABDOMEN:Normal (BS+ , no tenderness, -ve for acute abdomen or surgical abdomen. ), MSK:Normal, SKIN:Normal, NEURO:Normal, :Normal laboratory and microbiology Laboratory Tests 11/25/24 08:49 Test 11/25/24 08:49 Range/Units Serum Glucose 130 H 74-106 mg/dL Labs and/or images reviewed: Labs reviewed by me, Image(s) reviewed by me Problem List/Assessment/Plan Problem List/Assessment/Plan Reasons for consultation: Severe anemia rule out GI causes Hospitalization Summary: An 79-year-old male presented with generalized weakness, shortness of breath for two weeks, and intermittent, sharp, substernal chest pain provoked by inhalation. Cardiology was consulted, and an initial ECG showed normal sinus rhythm with right bundle branch block. His initial troponin level was 28 ng/L. His medical history includes anemia, arthritis, bipolar disorder, depression, skin cancer, obesity, and previous spinal surgery. Patient complained of constipation, was given MiraLax. Further workup limited due to patient's severe aortic stenosis as needed to be treated prior to any further GI workup. GI Assessment: # acute severe symptomatic anemia with hemoglobin 5.3, improved after 4 units RBC transfusion, H&H stable # chronic constipation x 1 month + (last bowel movement 11/23/2024) FOBT negative # cholelithiasis without evidence of cholecystitis # abdominal pain of unknown etiology # hepatic steatosis # hepatitis A positive # microcytic hypochromic anemia - # severe aortic stenosis # acute chest pain in the setting of severe anemia, likely iron-deficiency anemia # acute hypoxic respiratory failure # community-acquired pneumonia on IV abx # bipolar disorder # History of spinal fusion # active tobacco user # influenza type a on Tamiflu # pending placement to higher level of care for TAVR # Moderate to severe pulmonary hypertension. # lumbosacral radiculopathy with degenerative joint disease of spine # onychomycosis GI Plan: #Medications: Pantoprazole tablet 40 mg daily short course for 6 weeks. Colace b.i.d. ferrous sulfate 325 mg p.o. can consider adding vitamin-C/orange juice for better iron absorption. Consider MiraLax as needed for constipation. #Labs: Check CBC/follow up H&H transfusion threshold if it drops below 7. #Imaging/other work up: Obtain other GI workup from [facility]/other system. #Procedure: After definitive treatment of aortic stenosis with TAVR we will consider outpatient EGD/colonoscopy #Others: Might consider following up with the hemato oncologist as outpatient for further workup of anemia. Thank you so much for the opportunity to consult on your patient. GI team will sign off. Please scheduled follow up with GI as outpatient with Dr. Fawn Molina after the definitive treatment of severe aortic stenosis at higher level of care. In case of any questions or concerns please feel free to reach out. Case and action plan discussed with Dr. Bernadette Molina. Complex care planning needed total 43 minutes of detailed discussion. The patient and caregiver team agreed to the plan. Plan discussed with: Patient, Other (primary team. ) Dietary Evaluation Review Comments: 1) Advance pt diet when medically feasible Expected Outcomes/Goals: F/U in 3-5 days CC Plasma Assessment Blood Product Administration S: 20:35 SERA MURILLO RESIDENT Nov 26, 2024 11:56
--- NOTE | 2024-11-26 18:31 | MEDREC ---
[facility] ASP Intervention Section I [facility] ASP Intervention: Review courses of therapy (9 DAYS ON ZITHROMAX AND CEFTRIAXONE FOR PNA - RECOMMENDED DURATION 5-7 DAYS - PLEASE CONSIDER D/C ) ANDREEA FIGUEROA PHARMACIST Nov 26, 2024 18:31
--- NOTE | 2024-11-26 21:47 | DVHPN2 ---
Progress Note - Dictate Date Seen: Nov 26, 2024 Has the PT tested + for MRSA If YES, has PT been informed?: No Medical Necessity Reason Pt with a Central, PICC or Fol: No Subjective Patient seen and examined at bedside. Remains on supplemental oxygen Overnight events reviewed. vital signs Vital Sign Date Time Temp Pulse Resp B/P (MAP) Pulse Ox O2 Delivery O2 Flow Rate FiO2 11/26/24 16:34 98.0 90 18 102/54 (70) 93 98.0 11/26/24 16:16 Nasal Cannula 2.0 11/26/24 16:16 28 Total Intake and Output 11/25/24 11/25/24 11/26/24 15:00 23:00 07:00 Intake Total 50 ml 650 ml 200 ml Output Total 600 ml 1400 ml Balance 50 ml 50 ml -1200 ml medications Current Medications Medications Dose Ordered Sig/Ren Route Start Time Stop Time Status Last Admin Dose Admin Ceftriaxone Sodium 50 ml @ 100 mls/hr DAILY@09 IV 11/19/24 09:00 11/26/24 08:35 100 MLS/HR Azithromycin 250 ml @ 125 mls/hr DAILY IV 11/19/24 10:00 11/26/24 10:00 125 MLS/HR Ondansetron HCl 4 mg Q4HP PRN IV 11/18/24 12:15 11/20/24 13:19 4 MG Acetaminophen 650 mg Q6HP PRN PO 11/18/24 12:15 11/22/24 21:43 650 MG Quetiapine Fumarate 12.5 mg QPM PO 11/18/24 18:00 11/26/24 17:46 12.5 MG Patient Own Medication 2 tab HS PO 11/18/24 22:00 Ferrous Sulfate 325 mg BIDWM PO 11/18/24 18:00 11/26/24 17:46 325 MG Docusate Sodium 100 mg BIDPRN PRN PO 11/19/24 14:30 11/26/24 17:59 100 MG Pantoprazole Sodium 40 mg DAILY@0600 PO 11/20/24 06:00 11/26/24 06:25 40 MG Albuterol 2.5 mg Q4HR NEB 11/20/24 14:00 11/26/24 18:15 2.5 MG Ipratropium [place] 0.5 mg Q4HR NEB 11/20/24 14:00 11/26/24 18:16 0.5 MG Acetaminophen/ Hydrocodone Bitart 1 tab Q4HPRN PRN PO 11/23/24 10:30 11/26/24 18:00 1 TAB objective Gen.: Patient lying in bed in no apparent distress. On supplemental oxygen. Head: Normocephalic, atraumatic. Eyes: EOMI/PERRLA. Ears: Normal hearing. Normal anatomy. Neck/trachea: Trachea midline, supple. Nose: Normal external anatomy. Mouth: Moist mucous membranes. Chest: Decreased air entry bilaterally. No wheezing or rhonchi. Cardiovascular: Positive S1, positive S2. Regular rate and rhythm. Abdomen: Positive bowel sounds in all 4 quadrants. Soft, non-tender, non- distended. : Deferred. Rectal: Deferred. Skin: Warm, dry. Intact. Extremities: 2+ radial pulses bilaterally. No lower extremity edema. Neuro: Awake, alert, oriented x3. No gross motor or sensory deficits. Cranial nerves II through XII intact. Gait not assessed. laboratory and microbiology Laboratory Tests 11/25/24 08:49 Test 11/25/24 08:49 Range/Units Serum Glucose 130 H 74-106 mg/dL Assessment/Plan Impression: Acute hypoxic respiratory failure Dependence on supplemental oxygen Influenza A Pulmonary edema Pneumonia, likely gram negative Events: Remains on supplemental oxygen, 3 LPM NC Taper O2 as tolerated Awaiting higher level of care - [facility] for TAVR. Continue bronchodilators q.4 hours Continue antibiotics Completed Tamiflu course Iron supplementation Monitor hemoglobin Cardiology recs appreciated GI prophylaxis w/ Protonix Labs and imaging reviewed. Rest of plan as noted below. Plan: Supplemental oxygen Titrate to keep O2 sats above 92%. Continue bronchodilators. Tamiflu course completed Continue antibiotics Monitor renal function. Monitor electrolytes. Supplement as necessary. Monitor ins and outs. DVT prophylaxis. Prognosis: Guarded given patient's multiple co-morbidities. Rest of plan per hospitalist and other consultants. A total of 51 minutes of clinical care time was spent reviewing the patient record, examining the patient, making a diagnostic and therapeutic plan, discussing this plan with the medical personnel, following up on diagnostic studies and following the patient for clinical stability excluding any and all procedures. At least 50% of this time was spent in direct, [id number] contact. Thank you, Dr. Lares, for allowing me to participate in this patient's care. Further recommendations will depend on the patient's clinical course. Please do not hesitate to contact me if you have any questions or concerns. This medical document was created using an electronic medical record system with [facility] dictation system. Although these documentations are being carefully reviewed, there may still be some phonetic and typographical changes. The errors are purely typographical, due to imperfection on the software program, and do not reflect any compromise in the patient's medical care. Dietary Evaluation Review Comments: 1) Advance pt diet when medically feasible Expected Outcomes/Goals: F/U in 3-5 days Plan discussed with: Patient, Other (DOT Giordano) CC Plasma Assessment Blood Product Administration S: 20:35 LUZ NEWTON MD Nov 26, 2024 21:47
[2024-11-27] VITALS (16 sets, daily range): BP systolic 95–120; BP diastolic 41–58; PULSE 77–104; RESP 16–20; TEMP 97.1–98.4; O2SAT 92–100
[2024-11-27 05:34] LABS: Anion Gap 4 (5-15); Carbon Dioxide 30 mmol/L (20-31); Chloride 107 mmol/L (98-107); Potassium 4.2 mmol/L (3.5-5.1); Sodium 141 mmol/L (136-145)
[2024-11-27 05:35] LABS: Calcium 10.3 mg/dL (8.7-10.4)
[2024-11-27 05:40] LABS: BUN/Creatinine Ratio 12.9 (10.0-20.0); Blood Urea Nitrogen 11 mg/dL (9-23); Glucose 86 mg/dL (74-106)
[2024-11-27 05:43] LABS: Eosinophils # (auto) 0.3 10 ^3/uL (0-0.8); Hemoglobin 8.6 g/dL (13.5-17.5); Mean Corpuscular Volume 79.5 fL (80.0-100.0); Neutrophils # (auto) 3.6 10 ^3/uL (1.6-8.6); Nucleated Red Blood Cells % 0.1 %
[2024-11-27 05:47] LABS: Basophils # (auto) 0 10 ^3/uL (0-0.2); Basophils % (auto) 0.3 % (0.0-2.0); Eosinophils % (auto) 5.7 % (0.0-7.0); Hematocrit 28.3 % (41.0-53.0); Lymphocytes # (auto) 1.5 10 ^3/uL (0.4-5.4); Lymphocytes % (auto) 25.8 % (10.0-50.0); Mean Corpuscular Hemoglobin 24.1 pg (28.0-32.0); Mean Corpuscular Hgb Conc. 30.3 g/dL (32.0-36.0); Monocytes # (auto) 0.4 10 ^3/uL (0-1.3); Monocytes % (auto) 7.2 % (0.0-12.0); Platelet Count (auto) 214 10^3/uL (140-450); Red Blood Cells 3.56 10^6/uL (4.5-5.90)
[2024-11-27 05:49] LABS: Red Cell Distribution Width 27.2 % (11.8-14.3)
--- NOTE | 2024-11-27 08:11 | DVHPN2 ---
Reviewed: Care Plan, H&P, Labs, Medications, Previous Orders, Radiology Changes from previous H/P or p: No Changes Eyes: No Pain, No Vision change, No Conjunctivae inflammation, No Eyelid inflammation, No Other, No Redness ENT: No Ear pain, No Ear discharge, No Nose pain, No Nose discharge, No Nose congestion, No Mouth pain, No Mouth swelling, No Throat pain, No Throat swelling, No Other Cardiovascular: No Chest Pain, No Palpitations, No Orthopnea, No Paroxysmal Noc. Dyspnea, No Edema, No Lt Headedness, No Other Respiratory: No Cough, No Dry; Shortness of breath; No SOB with excertion, No Wheezing, No Hemoptysis, No Pleuritic Pain, No Sputum, No Other Gastrointestinal: No Nausea, No Vomiting, No Abdominal Pain, No Diarrhea, No Constipation, No Melena, No Hematochezia, No Other Genitourinary: No Dysuria, No Frequency, No Incontinence, No Hematuria, No Retention, No Other Musculoskeletal: No other, No neck pain, No shoulder pain, No arm pain, No back pain, No hand pain, No leg pain, No foot pain Skin: No Rash, No Lesions, No Jaundice, No Bruising, No Other Objective Vitals Vital Signs Date Time Temp Pulse Resp B/P (MAP) Pulse Ox O2 Delivery O2 Flow Rate FiO2 11/27/24 06:02 82 17 100 11/27/24 05:56 Nasal Cannula* 3 32 11/27/24 01:00 98.1 120/58 (78) 98.1 Intake/Output Intake and Output 11/27/24 07:00 Intake Total 1150 ml Output Total 2670 ml Balance -1520 ml Intake Oral 850 ml IV Total 300 ml Output Urine Total 2670 ml Medications Current Medications Medications Dose Ordered Sig/Ren Route Start Time Stop Time Status Last Admin Dose Admin Ceftriaxone Sodium 50 ml @ 100 mls/hr DAILY@09 IV 11/19/24 09:00 11/26/24 08:35 100 MLS/HR Azithromycin 250 ml @ 125 mls/hr DAILY IV 11/19/24 10:00 11/26/24 10:00 125 MLS/HR Ondansetron HCl 4 mg Q4HP PRN IV 11/18/24 12:15 11/20/24 13:19 4 MG Acetaminophen 650 mg Q6HP PRN PO 11/18/24 12:15 11/22/24 21:43 650 MG Quetiapine Fumarate 12.5 mg QPM PO 11/18/24 18:00 11/26/24 17:46 12.5 MG Patient Own Medication 2 tab HS PO 11/18/24 22:00 Ferrous Sulfate 325 mg BIDWM PO 11/18/24 18:00 11/26/24 17:46 325 MG Docusate Sodium 100 mg BIDPRN PRN PO 11/19/24 14:30 11/26/24 17:59 100 MG Pantoprazole Sodium 40 mg DAILY@0600 PO 11/20/24 06:00 11/27/24 05:31 40 MG Albuterol 2.5 mg Q4HR NEB 11/20/24 14:00 11/27/24 05:56 2.5 MG Ipratropium [place] 0.5 mg Q4HR NEB 11/20/24 14:00 11/27/24 05:56 0.5 MG Acetaminophen/ Hydrocodone Bitart 1 tab Q4HPRN PRN PO 11/23/24 10:30 11/26/24 18:00 1 TAB Laboratory Results Laboratory Tests 11/27/24 04:57 Chemistry Test 11/27/24 04:57 Calcium Level 10.3 mg/dL (8.7-10.4) LFT Test 11/26/24 13:12 Direct Bilirubin 0.3 mg/dL (<0.3) Urinalysis Test 11/18/24 21:17 Urine Color Yellow (Yellow) Urine Clarity Clear (Clear) Urine pH 5.5 (5.0-9.0) Urine Specific [place] 1.020 (1.001-1.035) Urine Protein Negative (Negative) Urine Ketones Trace (Negative) Urine Blood Negative /uL (Negative) Urine Nitrite Negative (Negative) Urine Bilirubin Negative (Negative) Urine Urobilinogen Normal mg/dL (Negative) Urine Leukocyte Esterase Negative /uL (Negative) Urine RBC 1 /hpf (0 - 3) Urine WBC 1 /hpf (0 - 3) Urine Squamous Epithelial Cells Few /hpf (<5) Urine Bacteria None seen /hpf (None Seen) Urine Glucose Normal mg/dL (Normal) Labs and/or images reviewed: Labs reviewed by me, Image(s) reviewed by me Assessment/Plan Assessment/Plan Severe aortic stenosis by echocardiogram: Transfer to higher level of care for TAVR per Cardiology, discussed with the patient and he is willing for transfer Acute chest pain in the setting of severe anemia Acute hypoxic respiratory failure: Oxygen by nasal cannula albuterol Atrovent consult for Dr. Mar Acute community-acquired pneumonia: Rocephin azithromycin Ruled out congestive heart failure echocardiogram BNP cardiology consult Acute symptomatic anemia with hemoglobin 5.3, improved to 6.8 after 2 units RBC transfusion, GI consult for Dr. Molina to rule out any GI causes for anemia Depression Bipolar History of spinal fusion History of tobacco use: Counseling Flu type A positive: Completed course of Tamiflu, we will check rapid flu test today and we will DC isolation if it is negative Mallika test negative D-dimer elevated 1.67 CT chest angiogram pending Time spent 45 minutes Patient is full code Orders placed for transfer to higher level of care for TAVR Examined Today: No new complaints, Awaiting Transfer to higher level of care Plan discussed with: Patient Date of Service: Nov 27, 2024 Billing Provider: MICHELLE ANDERSON MD Common Visit Codes: [id number] INP/OBS CARE(HIGH) MICHELLE ANDERSON MD Nov 27, 2024 08:11
[2024-11-27 09:47] LABS: Platelet Estimate Adequate
[2024-11-27 13:53] LABS: Rapid Influenza A Negative (Negative); Rapid Influenza B Negative (Negative)
--- NOTE | 2024-11-27 17:56 | DVHPN2 ---
Consult Progress Note Date Seen: Nov 27, 2024 Subjective Review of Systems: CVS:Normal, RESPIRATORY:Normal, NEURO:Normal Objective vital signs Vital Sign Date Time Temp Pulse Resp B/P (MAP) Pulse Ox O2 Delivery O2 Flow Rate FiO2 11/27/24 16:55 98.1 77 16 102/49 (66) 96 98.1 11/27/24 14:13 Nasal Cannula* 2 28 Total Intake and Output 11/26/24 11/26/24 11/27/24 15:00 23:00 07:00 Intake Total 300 ml 600 ml 250 ml Output Total 2000 ml 670 ml Balance 300 ml -1400 ml -420 ml medications Current Medications Medications Dose Ordered Sig/Ren Route Start Time Stop Time Status Last Admin Dose Admin Ceftriaxone Sodium 50 ml @ 100 mls/hr DAILY@09 IV 11/19/24 09:00 11/27/24 09:19 100 MLS/HR Azithromycin 250 ml @ 125 mls/hr DAILY IV 11/19/24 10:00 11/27/24 10:00 125 MLS/HR Ondansetron HCl 4 mg Q4HP PRN IV 11/18/24 12:15 11/20/24 13:19 4 MG Acetaminophen 650 mg Q6HP PRN PO 11/18/24 12:15 11/22/24 21:43 650 MG Quetiapine Fumarate 12.5 mg QPM PO 11/18/24 18:00 11/26/24 17:46 12.5 MG Patient Own Medication 2 tab HS PO 11/18/24 22:00 Ferrous Sulfate 325 mg BIDWM PO 11/18/24 18:00 11/27/24 09:19 325 MG Docusate Sodium 100 mg BIDPRN PRN PO 11/19/24 14:30 11/27/24 14:40 100 MG Pantoprazole Sodium 40 mg DAILY@0600 PO 11/20/24 06:00 11/27/24 05:31 40 MG Albuterol 2.5 mg Q4HR NEB 11/20/24 14:00 11/27/24 14:13 2.5 MG Ipratropium [place] 0.5 mg Q4HR NEB 11/20/24 14:00 11/27/24 14:13 0.5 MG Acetaminophen/ Hydrocodone Bitart 1 tab Q4HPRN PRN PO 11/23/24 10:30 11/26/24 18:00 1 TAB Examination: LUNGS:Normal, CVS:Abnormal (Systolic murmur), NEURO:Normal laboratory and microbiology Laboratory Tests 11/27/24 04:57 Test 11/27/24 04:57 Range/Units Serum Glucose 86 74-106 mg/dL Problem List/Assessment/Plan Problem List/Assessment/Plan Chest pain in the setting of severe anemia Severe aortic stenosis Moderate to severe pulmonary hypertension Influenza type A positive Acute hypoxic respiratory failure secondary to above Arthritis Depression Bipolar History of tobacco use Obesity Plan/Recommendation (Dr. Glaser) Transthoracic echocardiogram reveals EF 60%. Aortic valve area estimated 0.58 cm2 with mean gradient 72 mmHg and peak gradient 105 mmHg in keeping with severe aortic stenosis. Recommend for the patient to be transferred to higher level of care for possible valvular workup for possible TAVR. The patient has been accepted at [facility] and is currently awaiting bed availability. In the meantime, continue to monitor hemoglobin and hematocrit closely and transfuse PRBC as needed. Avoid anticoagulation therapy given severe anemia on admission. GI recommendations are for outpatient EGD/colonoscopy post TAVR. There is no further cardiac workup indicated at this time. Kindly call if you need to re-consult. Thank you for allowing us to care for this patient. Please call with any questions or concerns. This medical document was created using an electronic medical record system with voice recognition software and computerized dictation system. Although this document has been carefully reviewed, there might still be some phonetic and typographical errors. Occasional wrong-word or ``sound-alike substitutions may have occurred due to the inherent limitations of voice recognition software. These areas are purely typographical due to imperfections of the software programs and do not reflect any compromise in the patient's medical care. Please read the chart carefully and recognize, using context, where these substitutions have occurred. Plan discussed with: Patient, Other Dietary Evaluation Review Comments: 1) Advance pt diet when medically feasible Expected Outcomes/Goals: F/U in 3-5 days CC Plasma Assessment Blood Product Administration S: 20:35 Date of Service: Nov 27, 2024 Billing Provider: KEVIN GLASER MD Cardiology Common Codes: [id number] INP/OBS CARE(Mod) CHIVO BUCKLEY LENS EDGER Nov 27, 2024 17:56
--- NOTE | 2024-11-27 21:56 | DVHPN2 ---
Progress Note - Dictate Date Seen: Nov 27, 2024 Has the PT tested + for MRSA If YES, has PT been informed?: No Medical Necessity Reason Pt with a Central, PICC or Fol: No Subjective Patient seen and examined at bedside. Remains on supplemental oxygen Overnight events reviewed. vital signs Vital Sign Date Time Temp Pulse Resp B/P (MAP) Pulse Ox O2 Delivery O2 Flow Rate FiO2 11/27/24 18:33 84 18 99 11/27/24 18:25 Room Air* 0 21 11/27/24 16:55 98.1 102/49 (66) 98.1 Total Intake and Output 11/26/24 11/26/24 11/27/24 15:00 23:00 07:00 Intake Total 300 ml 600 ml 250 ml Output Total 2000 ml 670 ml Balance 300 ml -1400 ml -420 ml medications Current Medications Medications Dose Ordered Sig/Ren Route Start Time Stop Time Status Last Admin Dose Admin Ceftriaxone Sodium 50 ml @ 100 mls/hr DAILY@09 IV 11/19/24 09:00 11/27/24 09:19 100 MLS/HR Azithromycin 250 ml @ 125 mls/hr DAILY IV 11/19/24 10:00 11/27/24 10:00 125 MLS/HR Ondansetron HCl 4 mg Q4HP PRN IV 11/18/24 12:15 11/20/24 13:19 4 MG Acetaminophen 650 mg Q6HP PRN PO 11/18/24 12:15 11/22/24 21:43 650 MG Quetiapine Fumarate 12.5 mg QPM PO 11/18/24 18:00 11/27/24 17:57 12.5 MG Patient Own Medication 2 tab HS PO 11/18/24 22:00 Ferrous Sulfate 325 mg BIDWM PO 11/18/24 18:00 11/27/24 17:57 325 MG Docusate Sodium 100 mg BIDPRN PRN PO 11/19/24 14:30 11/27/24 14:40 100 MG Pantoprazole Sodium 40 mg DAILY@0600 PO 11/20/24 06:00 11/27/24 05:31 40 MG Albuterol 2.5 mg Q4HR NEB 11/20/24 14:00 11/27/24 18:25 2.5 MG Ipratropium [place] 0.5 mg Q4HR NEB 11/20/24 14:00 11/27/24 18:25 0.5 MG Acetaminophen/ Hydrocodone Bitart 1 tab Q4HPRN PRN PO 11/23/24 10:30 11/26/24 18:00 1 TAB objective Gen.: Patient lying in bed in no apparent distress. On supplemental oxygen. Head: Normocephalic, atraumatic. Eyes: EOMI/PERRLA. Ears: Normal hearing. Normal anatomy. Neck/trachea: Trachea midline, supple. Nose: Normal external anatomy. Mouth: Moist mucous membranes. Chest: Decreased air entry bilaterally. No wheezing or rhonchi. Cardiovascular: Positive S1, positive S2. Regular rate and rhythm. Abdomen: Positive bowel sounds in all 4 quadrants. Soft, non-tender, non- distended. : Deferred. Rectal: Deferred. Skin: Warm, dry. Intact. Extremities: 2+ radial pulses bilaterally. No lower extremity edema. Neuro: Awake, alert, oriented x3. No gross motor or sensory deficits. Cranial nerves II through XII intact. Gait not assessed. laboratory and microbiology Laboratory Tests 11/27/24 04:57 Test 11/27/24 04:57 Range/Units Serum Glucose 86 74-106 mg/dL Assessment/Plan Impression: Acute hypoxic respiratory failure Dependence on supplemental oxygen Influenza A Pulmonary edema Pneumonia, likely gram negative Events: Remains on supplemental oxygen, 3 LPM NC Taper O2 as tolerated Awaiting higher level of care - [facility] for TAVR. Plan to re-swab for influenza. Continue bronchodilators q.4 hours Continue antibiotics Completed Tamiflu course Incentive spirometry Iron supplementation Monitor hemoglobin GI prophylaxis w/ Protonix Labs and imaging reviewed. Rest of plan as noted below. Plan: Supplemental oxygen Titrate to keep O2 sats above 92%. Continue bronchodilators. Tamiflu course completed Continue antibiotics Monitor renal function. Monitor electrolytes. Supplement as necessary. Monitor ins and outs. DVT prophylaxis. Prognosis: Guarded given patient's multiple co-morbidities. Rest of plan per hospitalist and other consultants. A total of 51 minutes of clinical care time was spent reviewing the patient record, examining the patient, making a diagnostic and therapeutic plan, discussing this plan with the medical personnel, following up on diagnostic studies and following the patient for clinical stability excluding any and all procedures. At least 50% of this time was spent in direct, [id number] contact. Thank you, Dr. Lares, for allowing me to participate in this patient's care. Further recommendations will depend on the patient's clinical course. Please do not hesitate to contact me if you have any questions or concerns. This medical document was created using an electronic medical record system with [employer] dictation system. Although these documentations are being carefully reviewed, there may still be some phonetic and typographical changes. The errors are purely typographical, due to imperfection on the software program, and do not reflect any compromise in the patient's medical care. Dietary Evaluation Review Comments: 1) Advance pt diet when medically feasible Expected Outcomes/Goals: F/U in 3-5 days Plan discussed with: Patient, Other (DOT [place]) CC Plasma Assessment Blood Product Administration S: 20:35 LUZ NEWTON MD Nov 27, 2024 21:56
[2024-11-28] VITALS (16 sets, daily range): BP systolic 92–139; BP diastolic 47–62; PULSE 60–96; RESP 15–18; TEMP 37.1; O2SAT 90–100
[2024-11-28 06:24] LABS: Basophils # (auto) 0.1 10 ^3/uL (0-0.2); Eosinophils # (auto) 0.2 10 ^3/uL (0-0.8); Monocytes # (auto) 0.6 10 ^3/uL (0-1.3); Nucleated Red Blood Cells % 0.1 %; Platelet Count (auto) 268 10^3/uL (140-450); White Blood Cell 6.7 10^3/uL (4.4-10.8)
[2024-11-28 06:26] LABS: Basophils % (auto) 1.1 % (0.0-2.0); Eosinophils % (auto) 3.2 % (0.0-7.0); Lymphocytes # (auto) 1.2 10 ^3/uL (0.4-5.4); Lymphocytes % (auto) 18.2 % (10.0-50.0); Mean Corpuscular Hemoglobin 23.6 pg (28.0-32.0); Mean Corpuscular Hgb Conc. 30.9 g/dL (32.0-36.0); Mean Corpuscular Volume 76.4 fL (80.0-100.0); Neutrophils # (auto) 4.6 10 ^3/uL (1.6-8.6); Neutrophils % (auto) 68.5 % (37.0-80.0); Red Cell Distribution Width 27.1 % (11.8-14.3)
[2024-11-28 06:45] LABS: Anion Gap 9 (5-15); Carbon Dioxide 25 mmol/L (20-31); Sodium 141 mmol/L (136-145)
[2024-11-28 06:49] LABS: Glucose 88 mg/dL (74-106)
[2024-11-28 06:50] LABS: Blood Urea Nitrogen 11 mg/dL (9-23)
[2024-11-28 06:51] LABS: Chloride 107 mmol/L (98-107)
[2024-11-28 07:14] LABS: Anisocytosis Slight; Platelet Estimate Adequate
[2024-11-28 07:15] LABS: Hypochromia Slight; Ovalocytes FEW; Target Cell FEW
--- NOTE | 2024-11-28 09:06 | DVHPN2 ---
Reviewed: Care Plan, H&P, Labs, Medications, Previous Orders, Radiology Changes from previous H/P or p: No Changes Eyes: No Pain, No Vision change, No Conjunctivae inflammation, No Eyelid inflammation, No Other, No Redness ENT: No Ear pain, No Ear discharge, No Nose pain, No Nose discharge, No Nose congestion, No Mouth pain, No Mouth swelling, No Throat pain, No Throat swelling, No Other Cardiovascular: No Chest Pain, No Palpitations, No Orthopnea, No Paroxysmal Noc. Dyspnea, No Edema, No Lt Headedness, No Other Respiratory: No Cough, No Dry; Shortness of breath; No SOB with excertion, No Wheezing, No Hemoptysis, No Pleuritic Pain, No Sputum, No Other Gastrointestinal: No Nausea, No Vomiting, No Abdominal Pain, No Diarrhea, No Constipation, No Melena, No Hematochezia, No Other Genitourinary: No Dysuria, No Frequency, No Incontinence, No Hematuria, No Retention, No Other Musculoskeletal: No other, No neck pain, No shoulder pain, No arm pain, No back pain, No hand pain, No leg pain, No foot pain Skin: No Rash, No Lesions, No Jaundice, No Bruising, No Other Objective Vitals Vital Signs Date Time Temp Pulse Resp B/P (MAP) Pulse Ox O2 Delivery O2 Flow Rate FiO2 11/28/24 06:12 87 15 99 11/28/24 06:04 Nasal Cannula 2.0 11/28/24 06:04 28 11/28/24 05:00 98.6 92/51 (65) 98.6 Intake/Output Intake and Output 11/28/24 07:00 Intake Total 1410 ml Output Total 400 ml Balance 1010 ml Intake Oral 1110 ml IV Total 300 ml Output Urine Total 400 ml # Bowel Movements 1 Medications Current Medications Medications Dose Ordered Sig/Ren Route Start Time Stop Time Status Last Admin Dose Admin Ceftriaxone Sodium 50 ml @ 100 mls/hr DAILY@09 IV 11/19/24 09:00 11/27/24 09:19 100 MLS/HR Azithromycin 250 ml @ 125 mls/hr DAILY IV 11/19/24 10:00 11/27/24 10:00 125 MLS/HR Ondansetron HCl 4 mg Q4HP PRN IV 11/18/24 12:15 11/20/24 13:19 4 MG Acetaminophen 650 mg Q6HP PRN PO 11/18/24 12:15 11/22/24 21:43 650 MG Quetiapine Fumarate 12.5 mg QPM PO 11/18/24 18:00 11/27/24 17:57 12.5 MG Patient Own Medication 2 tab HS PO 11/18/24 22:00 Ferrous Sulfate 325 mg BIDWM PO 11/18/24 18:00 11/27/24 17:57 325 MG Docusate Sodium 100 mg BIDPRN PRN PO 11/19/24 14:30 11/27/24 14:40 100 MG Pantoprazole Sodium 40 mg DAILY@0600 PO 11/20/24 06:00 11/28/24 06:21 40 MG Albuterol 2.5 mg Q4HR NEB 11/20/24 14:00 11/28/24 06:04 2.5 MG Ipratropium [place] 0.5 mg Q4HR NEB 11/20/24 14:00 11/28/24 06:04 0.5 MG Acetaminophen/ Hydrocodone Bitart 1 tab Q4HPRN PRN PO 11/23/24 10:30 11/26/24 18:00 1 TAB Laboratory Results Laboratory Tests 11/28/24 05:34 Chemistry Test 11/28/24 05:34 Calcium Level 10.0 mg/dL (8.7-10.4) Urinalysis Test 11/18/24 21:17 Urine Color Yellow (Yellow) Urine Clarity Clear (Clear) Urine pH 5.5 (5.0-9.0) Urine Specific [place] 1.020 (1.001-1.035) Urine Protein Negative (Negative) Urine Ketones Trace (Negative) Urine Blood Negative /uL (Negative) Urine Nitrite Negative (Negative) Urine Bilirubin Negative (Negative) Urine Urobilinogen Normal mg/dL (Negative) Urine Leukocyte Esterase Negative /uL (Negative) Urine RBC 1 /hpf (0 - 3) Urine WBC 1 /hpf (0 - 3) Urine Squamous Epithelial Cells Few /hpf (<5) Urine Bacteria None seen /hpf (None Seen) Urine Glucose Normal mg/dL (Normal) Labs and/or images reviewed: Labs reviewed by me, Image(s) reviewed by me Assessment/Plan Assessment/Plan Severe aortic stenosis by echocardiogram: Transfer to higher level of care for TAVR per Cardiology, discussed with the patient and he is willing for transfer Acute chest pain in the setting of severe anemia Acute hypoxic respiratory failure: Oxygen by nasal cannula albuterol Atrovent consult for Dr. Mar Acute community-acquired pneumonia: Rocephin azithromycin Ruled out congestive heart failure echocardiogram BNP cardiology consult Acute symptomatic anemia with hemoglobin 5.3, improved to 6.8 after 2 units RBC transfusion, GI consult for Dr. Molina to rule out any GI causes for anemia Depression Bipolar History of spinal fusion History of tobacco use: Counseling Flu type A positive: Completed course of Tamiflu, we will check rapid flu test today and we will DC isolation if it is negative Mallika test negative D-dimer elevated 1.67 CT chest angiogram pending Time spent 45 minutes Patient is full code Orders placed for transfer to higher level of care for TAVR Examined Today: No new complaints, Awaiting bed at [place] Plan discussed with: Patient Date of Service: Nov 28, 2024 Billing Provider: MICHELLE ANDERSON MD Common Visit Codes: [id number] INP/OBS CARE(HIGH) MICHELLE ANDERSON MD Nov 28, 2024 09:06
--- NOTE | 2024-11-28 23:39 | DVHPN2 ---
Progress Note - Dictate Date Seen: Nov 28, 2024 Has the PT tested + for MRSA If YES, has PT been informed?: No Medical Necessity Reason Pt with a Central, PICC or Fol: No Subjective Patient seen and examined at bedside. Remains on supplemental oxygen Overnight events reviewed. vital signs Vital Sign Date Time Temp Pulse Resp B/P (MAP) Pulse Ox O2 Delivery O2 Flow Rate FiO2 11/28/24 18:37 90 18 100 11/28/24 18:27 Room Air* 0 21 11/28/24 17:00 99.0 110/51 (70) 99.0 Total Intake and Output 11/27/24 11/27/24 11/28/24 15:00 23:00 07:00 Intake Total 300 ml 780 ml 330 ml Output Total 400 ml Balance 300 ml 780 ml -70 ml objective Gen.: Patient lying in bed in no apparent distress. On supplemental oxygen. Head: Normocephalic, atraumatic. Eyes: EOMI/PERRLA. Ears: Normal hearing. Normal anatomy. Neck/trachea: Trachea midline, supple. Nose: Normal external anatomy. Mouth: Moist mucous membranes. Chest: Decreased air entry bilaterally. No wheezing or rhonchi. Cardiovascular: Positive S1, positive S2. Regular rate and rhythm. Abdomen: Positive bowel sounds in all 4 quadrants. Soft, non-tender, non- distended. : Deferred. Rectal: Deferred. Skin: Warm, dry. Intact. Extremities: 2+ radial pulses bilaterally. No lower extremity edema. Neuro: Awake, alert, oriented x3. No gross motor or sensory deficits. Cranial nerves II through XII intact. Gait not assessed. laboratory and microbiology Laboratory Tests 11/28/24 05:34 Test 11/28/24 05:34 Range/Units Serum Glucose 88 74-106 mg/dL Assessment/Plan Impression: Acute hypoxic respiratory failure Dependence on supplemental oxygen Influenza A Pulmonary edema Pneumonia, likely gram negative Events: Remains on supplemental oxygen, 3 LPM NC Taper O2 as tolerated Awaiting higher level of care - [facility] for TAVR. Negative influenza on repeat swab. Continue bronchodilators q.4 hours Continue antibiotics Completed Tamiflu course Incentive spirometry Iron supplementation Monitor hemoglobin GI prophylaxis w/ Protonix Labs and imaging reviewed. Rest of plan as noted below. Plan: Supplemental oxygen Titrate to keep O2 sats above 92%. Continue bronchodilators. Tamiflu course completed Continue antibiotics Monitor renal function. Monitor electrolytes. Supplement as necessary. Monitor ins and outs. DVT prophylaxis. Prognosis: Guarded given patient's multiple co-morbidities. Rest of plan per hospitalist and other consultants. A total of 51 minutes of clinical care time was spent reviewing the patient record, examining the patient, making a diagnostic and therapeutic plan, discussing this plan with the medical personnel, following up on diagnostic studies and following the patient for clinical stability excluding any and all procedures. At least 50% of this time was spent in direct, [id number] contact. Thank you, Dr. Lares, for allowing me to participate in this patient's care. Further recommendations will depend on the patient's clinical course. Please do not hesitate to contact me if you have any questions or concerns. This medical document was created using an electronic medical record system with [employer] dictation system. Although these documentations are being carefully reviewed, there may still be some phonetic and typographical changes. The errors are purely typographical, due to imperfection on the software program, and do not reflect any compromise in the patient's medical care. Dietary Evaluation Review Comments: 1) Advance pt diet when medically feasible Expected Outcomes/Goals: F/U in 3-5 days Plan discussed with: Patient, Other (DOT [place]) CC Plasma Assessment Blood Product Administration S: 20:35 LUZ NEWTON MD Nov 28, 2024 23:39
== END 2024-11-28 20:20 | disposition short-term general hospital (02) | DRG 177 ==
LOC: ER 07:13 → EDBD 07:13 → OVERFLOW 12:14 → WEST WING 21:30 → TELE-WESTW 11-22 10:23 → TELE-CENTR 11-26 22:38
PROVIDERS: ADMIT Family Medicine; ATTEND Family Medicine
PROC: 30233N1 Transfusion of Nonautologous Red Blood Cells into Peripheral Vein, Percutaneous Approach (ICD-10-PCS; principal; 2024-11-18)
DX: J10.08 Influenza due to other identified influenza virus with other specified pneumonia (principal); J96.01 Acute respiratory failure with hypoxia; J15.69 Pneumonia due to other Gram-negative bacteria; J98.11 Atelectasis; D50.9 Iron deficiency anemia, unspecified; J15.9 Unspecified bacterial pneumonia; Z20.822 Contact with and (suspected) exposure to COVID-19; F31.9 Bipolar disorder, unspecified; K59.00 Constipation, unspecified; E66.9 Obesity, unspecified; I35.0 Nonrheumatic aortic (valve) stenosis; I45.10 Unspecified right bundle-branch block; F17.210 Nicotine dependence, cigarettes, uncomplicated; K80.20 Calculus of gallbladder without cholecystitis without obstruction; I27.20 Pulmonary hypertension, unspecified; M54.17 Radiculopathy, lumbosacral region; B35.1 Tinea unguium; M47.817 Spondylosis without myelopathy or radiculopathy, lumbosacral region; K76.0 Fatty (change of) liver, not elsewhere classified; Z68.26 Body mass index [BMI] 26.0-26.9, adult; Z99.81 Dependence on supplemental oxygen; Z98.1 Arthrodesis status; Z88.6 Allergy status to analgesic agent; Z85.828 Personal history of other malignant neoplasm of skin; Z82.49 Family history of ischemic heart disease and other diseases of the circulatory system; Z82.0 Family history of epilepsy and other diseases of the nervous system; Z78.9 Other specified health status
CPT/HCPCS: 36415; 71045; 71275; 76700; 80048; 80053; 81001; 82248; 82270; 82607; 83010; 83540; 83550; 83880; 84484; 85007; 85025; 85027; 85045; 85379; 85610; 85730; 86704; 86706; 86708; 86803; 86850; 86880; 86900; 86901; 86920; 87340; 87426; 87804; 93005; 93306; 94640; 99291; 99292; G0378; J2405